=== PATIENT | male | born 1955 | race Caucasian/White ===

== ENCOUNTER 2019-04-23 14:00 | Outpatient (RCR) | payer OTHER, SELFPAY ==
[2019-02-12 09:57] VITALS: BMI 35.1
[2019-02-12 09:58] VITALS: BMI 35.1
[2019-04-23 13:56] VITALS: BMI 35.1
[2019-04-23 14:00] VITALS: BMI 35.1
== END 2019-05-13 23:59 | disposition home or self-care (01) ==
LOC: ANHDMC 14:00
PROVIDERS: PCP Family Medicine Adolescent Medicine; Visit Provider Surgery
DX: E11.9 Type 2 diabetes mellitus without complications (principal); Z71.3 Dietary counseling and surveillance
CPT/HCPCS: 97802; 97803

== ENCOUNTER 2019-06-18 09:43 | Outpatient (RCR) | payer OTHER, SELFPAY ==
[2019-06-18 09:46] VITALS: BMI 33.8
== END 2019-09-16 23:59 | disposition home or self-care (01) ==
LOC: ANHDMC 09:43
PROVIDERS: PCP Family Medicine Adolescent Medicine; Visit Provider Physician Assistant
DX: E11.9 Type 2 diabetes mellitus without complications (principal); Z71.3 Dietary counseling and surveillance
CPT/HCPCS: 97802

== ENCOUNTER 2020-01-07 11:27 | Observation (INO) | payer OTHER, SELFPAY ==
[2020-01-07] VITALS (9 sets, daily range): BP systolic 124–164; BP diastolic 76–99; PULSE 5–64; RESP 6–18; TEMP 36.1–36.6; O2SAT 95–100; BMI 32.8
--- NOTE | ~2020-01-07 | XR_ITS ---
EXAMINATION: XR chest 2V DATE: 01/07/2020 12:01 INDICATION: Chest pain and left arm pain TECHNIQUE: frontal and lateral views of the chest were obtained. COMPARISON: Chest radiograph dated 03/10/2014 FINDINGS: Mild elevation of the left hemidiaphragm. No focal airspace opacities, pulmonary edema, pleural effus ion or pneumothorax. The cardiomediastinal silhouette is normal. Mild thoracic spondylosis. IMPRESSION: 1. No acute cardiopulmonary disease. Reviewed, dictated and finalized at location B.
--- NOTE | ~2020-01-07 | NM_ITS ---
EXAMINATION: NM hira stress w perfusion DATE: 01/08/2020 13:19 INDICATION: Chest discomfort. TECHNIQUE: Rest images were obtained following intravenous administration of 9 mCi Tc99m tetrofosmin (Myoview). The patient was infused intravenously with Lexiscan (regadenoson). Then, 29 mCi Tc99m tetr ofosmin (Myoview) was administered intravenously, and stress images were obtained. Data was reconstru cted into short axis and horizontal and vertical long axis SPECT images. Gated SPECT images were also obtained. COMPARISON: None. FINDINGS: There is no definite reversible or fixed perfusion abnormality to suggest ischemia or infar ction. There is no segmental wall motion abnormality. Left ventricular ejection fraction measures 6 8%. IMPRESSION: 1. No definite ischemia or infarct. 2. Normal left ventricular ejection fraction measuring 68%. Reviewed, dictated and finalized at location A.
--- NOTE | ~2020-01-07 | CT_ITS ---
EXAMINATION: CTA brain carotid EXAM DATE: 01/07/2020 16:57 INDICATION: Left arm pain and chest pain. TECHNIQUE: Noncontrast head CT. Spiral CTA of the carotid arteries was performed with intravenous i njection 100 cc of Omnipaque 350. Axial, coronal, sagittal reformatted images reviewed. Additional r eformatted images created on dedicated 3-D workstation. NASCET comparable standard used to assess th e degree of arterial stenosis. Spiral CT angiogram cerebral arteries performed with the same intrave nous injection of contrast. Source images of the brain CTA transferred to dedicated workstation for 3 -D rotational image creation. Coronal, sagittal maximum intensity pixel images also reviewed. The d ose-length product (DLP) for this examination was 1925.69 mGy-cm. The exposure was tailored accordi ng to patient size, and iterative reconstruction (ASIR) was used as additional dose reduction techniq ue. Study is complete, with images available for review at 17:19 p.m. Correlation is made to head CT 01/10/2011. FINDINGS: No aortic arch or great vessel dissection. There is essentially no carotid plaque. There is no carotid stenosis. Both vertebral arteries are small with the left being dominant and the being bi lateral posterior communicating artery dominant posterior cerebral arteries. There is no carotid or vertebral basilar arterial dissection or fibromuscular dysplasia. There are no cerebral artery aneury sms. There is symmetric cerebral artery arborization. The sagittal, transverse and sigmoid sinuses en wes normally, no venous sinus thrombosis. Internal cerebral veins also enhance normally. There is no acute intraparenchymal hemorrhage. No evidence of intraparenchymal brain mass lesion. N o evidence of acute infarction. There is mild microangiopathy. There is no mass effect or midline sh ift. There is no obstructive hydrocephalus suspected. There are no extra-axial collections. There a re no calvarial acute fractures. There are no areas of abnormal enhancement on the postcontrast imag es. IMPRESSION: 1. No cervical arterial dissection or cerebral artery aneurysm. 2. No carotid stenosis. 3. Mild microangiopathy. Reviewed, dictated and finalized at location A.
--- NOTE | ~2020-01-07 | MR_ITS ---
EXAMINATION: MR brain/brain stem wo/w con DATE: 01/08/2020 11:14 INDICATION: Left hemiparesis. TECHNIQUE: Magnetic resonance imaging (MRI) of the brain and brainstem was performed without and with 20 mL MultiHance intravenous contrast. Sequences included sagittal and axial T1-weighted FSE, axial diffusion-weighted FS EPI, axial T2*-weighted GRE, axial T2-weighted FLAIR Propeller, and axial T2-we ighted Propeller. Postcontrast sequences included axial and coronal T1-weighted FSE. Apparent diffusi on coefficient (ADC) maps were created. COMPARISON: Head CT 01/07/2020 FINDINGS: There are scattered areas of nonspecific increased T2-weighted signal intensity in the cere bral white matter. There is no intracranial hemorrhage, acute infarction, or abnormal intracranial ma ss lesion. The ventricles are normal in size. The orbits are normal. The paranasal sinuses are clear. The mastoid air cells are normal. IMPRESSION: 1. Mild nonspecific cerebral white matter disease, which likely represents chronic small vessel ische kaitlynn disease. Reviewed, dictated and finalized at location A. IMPRESSION: 1. Mild nonspecific cerebral white matter disease, which likely represents water project engineer luis small vessel ischemic disease.
--- NOTE | 2020-01-07 11:45 | ECG_ITS ---
Measurements Intervals Freedom Rate: 60 P: 36 MT: 209 QRS: -15 QRSD: 107 T: 38 QT: 417 QTc: 419 Interpretive Statements SINUS RHYTHM WITH FIRST DEGREE AV BLOCK BASELINE WANDER- II, III, AVL, AVF, V4 ABNORMAL ECG Electronically Signed On 01-07-2020 11:47:51 CDT by Brian Gonzalez D.O.
[2020-01-07 12:52] LABS: Basophils Absolute Auto 0.1 K/mm3 (0.0-0.1); Eosinophils Absolute Auto 0.2 K/mm3 (0-0.3); Eosinophils Percent Auto 2.3 % (0-4.4); Hematocrit 41.8 % (42.0-52.0); Hemoglobin 14.6 g/dL (14.0-18.0); Immature Granulocyte Absolute 0.03 K/mm3 (0.00-0.031); Immature Granulocyte Percent A 0.4 % (0-0.5); Lymphocytes Absolute Auto 2.17 K/mm3 (0.9-3.2); Lymphocytes Percent Auto 31.5 % (18.3-44.2); Mean Corpuscular HGB Conc 34.9 g/dl (32-36); Mean Corpuscular Hemoglobin 32.2 pg (26-34); Mean Corpuscular Volume 92.1 fl (80-100); Mean Platelet Volume 10.2 fl (7.4-10.4); Monocytes Absolute Auto 0.5 K/mm3 (0.1-0.6); Neutrophils Percent Auto 57.8 % (45.5-73.1); Platelet Count Result 189 k/mm3 (150-375); Red Blood Count 4.54 M/mm3 (4.6-6.20); Red Cell Distribution Width 12.2 % (11.5-14.5); White Blood Count 6.9 K/mm3 (4.5-10.0)
[2020-01-07 13:05] LABS: Partial Thromboplastin Time 26.7 SECONDS (22.3-36.8)
[2020-01-07 13:06] LABS: Anion Gap 9 mmol/L (8-16); Blood Urea Nitrogen 15 mg/dL (9-20); Calcium 9.6 mg/dL (8.4-10.2); Carbon Dioxide 26 mmol/L (22-30); Chloride 104 mmol/L (98-107); Estimated CRCL calculation 88 ml/min; Estimated Glomerular Filt Rate > 60; Glucose 202 mg/dL (75-110); Sodium 139 mmol/L (137-145)
[2020-01-07 13:19] LABS: Troponin I < 0.012 ng/mL (0.000-0.034)
--- NOTE | 2020-01-07 15:26 | ED.CHESTPAIN ---
HPI - Chest Pain General Chief Complaint: Chest Pain Stated Complaint: CP, left arm pain Time Seen by Provider: 01/07/20 15:26 Source: patient and family Mode of arrival: ambulatory Limitations: no limitations History of Present Illness HPI narrative: 64-year-old male History of hypertension and insulin-dependent diabetes Patient reports he was standing at a [facility] service at about 1030 this morning He felt a sudden sharp stabbing pain in his left shoulder area along with weakness of his left arm He left the service and proceeded to drive his motorcycle home although he felt like his structural architect was so weak that he was having trouble shifting the gears At this point the initial pain has diminished to a 3 or a 4 but he still experiencing some weakness in the arm He does not really have any chest pain per se nor shortness of breath nausea diaphoresis MD complaint: chest pain and other Onset: other Pain location: other Pain radiation: left arm Quality: sharp Risk Factors Coronary artery disease risk factors: diabetes and hypertension Related Data Allergies Allergy/AdvReac Type Severity Reaction Status Date / Time oxycodone Allergy Unknown Verified 01/09/11 08:48 OXYCODONE HCL Allergy Unknown Uncoded 04/05/17 18:59 SALT Allergy Unknown Uncoded 10/14/13 18:18 STRESS TEST DYE Allergy Unknown Uncoded 10/14/13 18:18 Review of Systems Review of Systems: All systems reviewed & are unremarkable except as noted in HPI and below Constitutional: Constitutional: Denies chills, Denies fatigue, Denies fever(s), Denies headache(s) and Denies night sweats Eyes: Eyes: Denies change in vision, Denies loss of vision and Denies other visual disturbances ENT: Denies headache(s), Denies hoarseness, Denies epistaxis, Denies nasal congestion and Denies sore throat Cardiovascular: Cardiovascular: Reports chest pain, Denies leg edema, Reports radiating jaw, neck or arm pain, Denies palpitations and Denies dyspnea Respiratory: Respiratory: Denies cough, Denies dyspnea and Denies wheezing Gastrointestinal: Gastrointestinal: Denies abdominal pain, Denies diarrhea, Denies nausea and Denies vomiting Genitourinary: Genitourinary: Denies hematuria, Denies dysuria and Denies urinary frequency Musculoskeletal: Musculoskeletal: Denies abnormal gait, Denies deformity, Denies joint swelling, Denies muscle weakness and Denies numbness Integumentary/Breasts: Skin/Breast: Denies rash, Denies unusual bruising and Denies wounds Neurologic: Denies abnormal gait, Denies headache(s), Reports focal weakness, Denies loss of vision and Denies numbness Psychiatric: Psychiatric: Reports no additional psychiatric complaints Endocrine: Endocrine: Denies fatigue and Denies palpitations Hematologic/Lymphatic: Hematologic/Lymphatic: Denies easy bleeding and Denies easy bruising Allergic/Immunologic: Allergic/Immunologic: Denies wheezing PMFSH Social History Social History Smoking status: Never smoker Alcohol intake: never Gender identity (if verbalized by the patient): Female Spiritual care concerns: No Exam Const: General: healthy appearing, no acute distress and well developed Nutritional Appearance: well nourished Orientation/consciousness: patient oriented x3 (alert) and Other orientation findings (Alert) Limitations: no limitations HENMT: Head: normocephalic and atraumatic Ears: external ears normal General nose exam: No nasal discharge present and no epistaxis Face and sinus: face symmetric Mouth: Yes lip normal, Yes tongue normal and Yes moist mucous membranes Throat: other (No exudate, no erythema) Eyes: Conjunctivae: conjunctivae normal Sclera: sclerae normal EOM: EOMs intact bilaterally Neck: Neck: full ROM, no lymphadenopathy, no meningeal signs and supple Thyroid: thyroid normal Other: Neck movements do not elicit any radicular signs or symptoms Chest: Chest palpation & inspection: no tenderness Resp: Effort & Inspection
[2020-01-07 16:19] LABS: Troponin I < 0.012 ng/mL (0.000-0.034)
[2020-01-07 18:01] LABS: Glucose Point of Care 131 (65-105)
[2020-01-07] MEDS: ASPIRIN 81 MG CHEWABLE TABLET 324 MG PO (18:36)
[2020-01-07 19:36] LABS: Troponin I < 0.012 ng/mL (0.000-0.034)
[2020-01-07 20:17] LABS: Glucose Point of Care 102 (65-105)
--- NOTE | 2020-01-07 21:57 | PM.IMHP ---
H&P: HPI History of Present Illness Date/Time: 01/07/20 21:57 Chief complaint: L sided weakness/chest pain Narrative: Anthony Walton is a 64 year old male Who has a history of diabetes and hypertension but has never had any heart disease in the past. The patient was at a [facility] service holding a flag today. The patient developed this left chest pain that was near his left axillary area. The patient stated that it lasted from that time frame to just recently since he has been admitted in the pain is gone away since then. He has not had this pain before he also developed some left arm weakness and he stated that he could move his left arm but had difficulty holding up in the 90 degree angle. His speech was not slurred or had any other problems moving any other extremities. The patient rode his motorcycle home from this event. The patient denies having any injury or accident that would have caused this discomfort. He does not recall doing anything straining is to cause a muscle strain. The patient states when he does use his left arm feels like a pulling action. He also has some tenderness to that left upper chest. No nausea no vomiting no diarrhea. The patient stated that his pain did radiate all the way down his arm but not his neck and he did not have any shortness of breath or diaphoresis. He did not take anything for this discomfort nor did he have this in the past. He does have diabetes but his blood sugars he stated her typically under 200s. The patient had no dizziness. The cardiac enzymes have been negative x2 so far. The patient stated that he had not eaten since this morning and he is just now eating almost 12 hours later. The head and neck CTA shows no cervical arterial dissection or cerebral artery aneurysm. No carotid stenosis. Micro angiopathy. Chest x-ray no acute cardiopulmonary disease. EKG was read as a sinus rhythm with first-degree AV block with heart rate in the 60s. The patient was given IV fluids in the emergency room as well as Tylenol and an aspirin. The patient was admitted to IMU as an observation. Date of service is 01/07/2020. Review of Systems Review of Systems: All systems reviewed & are unremarkable except as noted in HPI and below Constitutional: Constitutional: Reports as per HPI and Reports no additional constitutional complaints Eyes: Eyes: Reports as per HPI and Reports no additional eye complaints ENT: Reports system reviewed and no additional complaints, except as documented and Reports Normal hearing present Cardiovascular: Cardiovascular: Reports no additional cardiovascular complaints Respiratory: Respiratory: Reports no additional respiratory complaints and Reports no additional respiratory complaints Gastrointestinal: Gastrointestinal: Reports as per HPI and Reports no additional gastrointestinal complaints Musculoskeletal: Musculoskeletal: Reports no additional musculoskeletal complaints Integumentary/Breasts: Skin/Breast: Reports system reviewed and no additional complaints, except as docu and Reports as per HPI Neurologic: Reports system reviewed and no additional complaints, except as documented, Reports as per HPI and Reports Normal hearing present Psychiatric: Psychiatric: Reports no additional psychiatric complaints and Reports as per HPI Endocrine: Endocrine: Reports no additional endocrine complaints Hematologic/Lymphatic: Hematologic/Lymphatic: Reports no additional hematologic/lymphatic complaints Allergic/Immunologic: Allergic/Immunologic: Reports no additional allergic/immunologic complaints [facility] Past Medical History Medical History (Updated 01/07/20 @ 22:10 by Viviana Luo NP) Anxiety BPH (benign prostatic hyperplasia) DM2 (diabetes mellitus, type 2) Hyperlipidemia Hypertension Surgical History Surgical History (Updated 01/07/20 @ 22:10 by Viviana Luo NP) H/O elbow surgery right and left arm H/O inguinal hernia repair left side Histor
[2020-01-08] VITALS (9 sets, daily range): BP systolic 116–151; BP diastolic 54–89; PULSE 59–65; RESP 14–16; TEMP 35.9–36.7; O2SAT 95–100
--- NOTE | 2020-01-08 | ECHO_ITS ---
Patient Info Name: Anthony Walton Age: 64 years : 1955 Gender: Male Ht: 75 in Wt: 262 lbs BSA: 2.54 m2 HR: 58 bpm BP: 116 / 54 mmHg Technical Quality: Good Exam Date: 01/08/2020 8:10 AM Exam Location: [facility] Pulmonary Patient Status: Outpatient Admit Date: 01/07/2020 Staff Ordering Physician: Viviana Luo NP Wire Stitcher: Yordan Jones RDCS, RT Attending Provider: Angelo Coughlin MD Referring Physician: Puja ARAIZA; Exam Type: CA echo dop bubble study w con Study Info Indications R53.1 - Weakness Complete two-dimensional, color flow and Doppler transthoracic echocardiogram is performed with contrast to opacify the left ventricle and to improve the deliniation of the left ventricle endocardial borders. Complete two-dimensional, color flow and Doppler transthoracic echocardiogram is performed with agitated saline. Strain analysis performed. Summary 1. Left ventricular chamber dimension is normal. 2. Definity contrast administered improved wall motion interpretation. 3. Ventricular septum is sigmoid shaped. No LVOT obstruction. 4. Left ventricular systolic function is normal, estimated at 65-70%. 5. There is mildly increased left ventricular wall thickness. 6. The left ventricular diastolic function is grade I diastolic dysfunction. 7. E/e' 6 is not elevated. 8. Global longitudinal strain is mildly abnormal at -16.4%. 9. Agitated saline injection with and without valsalva maneuver demonstrated a few bubbles shunting to left sided cardiac chambers suggesting patent foramen ovale. 10. There is mild aortic valve sclerosis. Left Ventricle Definity contrast administered improved wall motion interpretation. E/e' 6 is not elevated. Global longitudinal strain is mildly abnormal at -16.4%. Ventricular septum is sigmoid shaped. No LVOT obstruction. Left ventricular chamber dimension is normal. Left ventricular systolic function is normal, estimated at 65-70%. There is mildly increased left ventricular wall thickness. The left ventricular diastolic function is grade I diastolic dysfunction. Right Ventricle Right ventricular chamber dimension is normal. Right ventricular systolic function is normal. Left Atria Left atrial chamber dimension is normal. Right Atria Right atrial chamber dimension is normal. Atrial Septum Agitated saline injection with and without valsalva maneuver demonstrated a few bubbles shunting to left sided cardiac chambers suggesting patent foramen ovale. Suspected patent foramen ovale visualized by agitated saline imaging. Aortic Valve The aortic valve is trileaflet. There is mild aortic valve sclerosis. There is no aortic valve stenosis. There is no aortic valve regurgitation. Pulmonic Valve There is no pulmonic regurgitation. Mitral Valve There is no mitral valve stenosis. There is no mitral valve regurgitation. Tricuspid Valve There is no tricuspid valve regurgitation. Pericardium/Pleural There is no pericardial effusion. Inferior Vena Cava Normal inferior vena cava with >50% collapse upon inspiration consistent with normal right atrial pressure, 5 mmHg. Aorta The aortic root size at the sinus of Valsalva is normal. Left Ventricular Outflow Tract Name Value Normal LVOT 2D
[2020-01-08] MEDS: LACTATED RINGERS 1,000 ML 100 ML IV CONT ×2 (00:05→09:59)
--- NOTE | 2020-01-08 01:24 | PC.NURSE ---
During admission, pt states that he has thoughts of wishing he weren't alive or not waking up whenever I have to deal with my ex-. Pt states he has no organized plan or ideas to carry out ending his life.
[2020-01-08 05:20] LABS: Basophils Absolute Auto 0.1 K/mm3 (0.0-0.1); Basophils Percent Auto 0.8 % (0.2-1.2); Eosinophils Absolute Auto 0.2 K/mm3 (0-0.3); Hematocrit 39.6 % (42.0-52.0); Hemoglobin 13.6 g/dL (14.0-18.0); Immature Granulocyte Absolute 0.02 K/mm3 (0.00-0.031); Immature Granulocyte Percent A 0.3 % (0-0.5); Lymphocytes Absolute Auto 1.88 K/mm3 (0.9-3.2); Lymphocytes Percent Auto 28.5 % (18.3-44.2); Mean Corpuscular HGB Conc 34.3 g/dl (32-36); Mean Corpuscular Hemoglobin 31.6 pg (26-34); Mean Corpuscular Volume 91.9 fl (80-100); Mean Platelet Volume 10.6 fl (7.4-10.4); Monocytes Absolute Auto 0.5 K/mm3 (0.1-0.6); Monocytes Percent Auto 7.6 % (2.6-8.5); Neutrophils Percent Auto 59.8 % (45.5-73.1); Platelet Count Result 194 k/mm3 (150-375); Red Blood Count 4.31 M/mm3 (4.6-6.20); Red Cell Distribution Width 12.3 % (11.5-14.5); White Blood Count 6.6 K/mm3 (4.5-10.0)
[2020-01-08 05:29] LABS: Hemoglobin A1C 8.1 % (<5.7)
[2020-01-08 05:36] LABS: Alanine Aminotransferase 43 U/L (4-50); Alkaline Phosphatase 71 U/L (38-126); Anion Gap 8 mmol/L (8-16); Aspartate Amino Transferase 45 U/L (17-59); Bilirubin,Total 0.5 mg/dL (0.2-1.3); Blood Urea Nitrogen 18 mg/dL (9-20); Calcium 9.2 mg/dL (8.4-10.2); Carbon Dioxide 25 mmol/L (22-30); Chloride 105 mmol/L (98-107); Estimated CRCL calculation 92 ml/min; Estimated Glomerular Filt Rate > 60; Glucose 248 mg/dL (75-110); Potassium 4.3 mmol/L (3.4-5.0); Sodium 138 mmol/L (137-145)
[2020-01-08 07:35] LABS: Free T4 Free Thyroxine Reflex 0.77 ng/dL (0.78-2.19)
--- NOTE | 2020-01-08 08:00 | EST_ITS ---
Patient Info Name: Anthony Walton Age: 64 years : 1955 Gender: Male Ht: 75 in Wt: 259 lbs BSA: 2.52 m2 Exam Date: 01/08/2020 12:06 PM Exam Location: [facility] Stress Patient Status: Inpatient Admit Date: 01/07/2020 Staff Ordering Physician: Gloria Medina MD Attending Provider: Angelo Coughlin MD Exercise Technologist: Beena Parada RDCS Exercise Physician: Brian Gonzalez DO Exam Type: CA stress hira w NM Study Info Indications R07.9 - Chest pain, unspecified A regadenoson stress test was performed. Summary 1. 1. Negative lexiscan stress test for ischemic ST changes by ECG criteria. 2. 2. Stable hemodynamics throughout the test. 3. 3. Nuclear scan to follow and will be reported separately. Please correlate with it. 4. 4. Patient informed of the above results. Protocol: Lexiscan Stress ECG Details Stage: REST Duration (min): 6 min : 59 sec HR (bpm): 58 SBP (mmHg): 142 DBP (mmHg): 71 Stage: REST Duration (min): 9 min : 48 sec HR (bpm): 61 SBP (mmHg): 142 DBP (mmHg): 71 Stage: STAGE 1 Duration (min): 1 min : 0 sec HR (bpm): 68 SBP (mmHg): 123 DBP (mmHg): 76 Stage: RECOVERY Duration (min): 1 min : 0 sec HR (bpm): 92 SBP (mmHg): 108 DBP (mmHg): 69 Stage: RECOVERY Duration (min): 2 min : 0 sec HR (bpm): 86 SBP (mmHg): 108 DBP (mmHg): 69 Stage: RECOVERY Duration (min): 3 min : 0 sec HR (bpm): 78 SBP (mmHg): 120 DBP (mmHg): 70 Stage: RECOVERY Duration (min): 4 min : 0 sec HR (bpm): 80 SBP (mmHg): 120 DBP (mmHg): 70 Stage: RECOVERY Duration (min): 5 min : 0 sec HR (bpm): 82 SBP (mmHg): 132 DBP (mmHg): 75 Stage: RECOVERY Duration (min): 6 min : 0 sec HR (bpm): 78 SBP (mmHg): 132 DBP (mmHg): 75 Stage: RECOVERY Duration (min): 6 min : 56 sec HR (bpm): 79 SBP (mmHg): 137 DBP (mmHg): 77 Rest HR: 61 bpm Peak HR: 96 bpm Rest Sys BP: 142 mmHg Peak Sys BP: 137 mmHg Max Pred HR: 157 bpm % Max Pred HR: 61 % Target HR: 133 bpm Max RPP: 13,152 bpm*mmHg Termination Reason: Completed protocol Cardiac Symptoms: Dizziness Total Time: 1 min : 0 sec Rest Soliman BP: 71 mmHg Peak Soliman BP: 77 mmHg Total Dose: 0.4 mg Resting ECG Sinus rhythm, IVCD. Stress ECG No ST changes. Arrhythmias None. Report Signatures
--- NOTE | 2020-01-08 08:01 | PM.IMPN ---
Subjective Date/time seen: 01/08/20 08:01 Objective Data Vital Signs Vital Signs: Vital Signs - 24 hr 01/07/20 12:39 01/07/20 14:54 01/07/20 16:30 Temperature 96.9 F L Pulse Rate 62 61 58 L Respiratory Rate 15 18 16 Blood Pressure 124/89 139/80 145/99 H Pulse Oximetry 99 97 98 01/07/20 18:00 01/07/20 19:00 01/07/20 19:50 Temperature Pulse Rate 60 58 L 62 Respiratory Rate 16 16 16 Blood Pressure 156/84 H 164/98 H 143/93 H Pulse Oximetry 98 97 100 01/07/20 20:07 01/07/20 22:00 01/07/20 23:37 Temperature 98 F Pulse Rate 60 64 5 L Respiratory Rate 6 L Blood Pressure 132/76 Pulse Oximetry 95 01/08/20 00:00 01/08/20 02:00 01/08/20 04:00 Temperature 98.1 F Pulse Rate 59 L 59 L 64 Respiratory Rate 14 Blood Pressure 116/54 L Pulse Oximetry 95 01/08/20 06:00 Temperature Pulse Rate 62 Respiratory Rate Blood Pressure Pulse Oximetry Intake/Output Intake/Output: Intake & Output 01/05/20 01/06/20 01/07/20 01/08/20 23:59 23:59 23:59 23:59 Intake Total 800 Output Total 1050 Balance -250 Meds/Results Medications: Active Medications Generic Name Dose Route Start Last Admin Trade Name Freq PRN Reason Stop Dose Admin Acetaminophen 650 mg 01/07/20 18:37 Acetaminophen 325 Mg Tablet PO Q4H PRN Mild Pain (1-3) or Fever Amlodipine Besylate 5 mg 01/07/20 22:05 01/08/20 00:11 Amlodipine Besylate 5 Mg Tablet PO Not Given HS LISA Aspirin 81 mg 01/08/20 09:00 Aspirin 81 Mg Enteric Tablet PO QAM LISA Dextrose 12.5 gm 01/07/20 22:07 Dextrose 50% 25 Gm/50 Ml Syringe IV PUSH PRN PRN Hypoglycemia Protocol Diazepam 5 mg 01/07/20 22:05 01/08/20 00:11 Diazepam (*Crx) 5 Mg Tablet PO Not Given HS LISA Enoxaparin Sodium 40 mg 01/08/20 09:00 Enoxaparin 40 Mg/0.4 Ml Syringe SUB-Q DAILY [facility] Glimepiride 1 mg 01/08/20 21:00 Glimepiride 1 Mg Tablet BY MOUTH HS [facility] Glucagon 1 mg 01/07/20 22:07 Glucagon For Inj 1 Mg Vial IM PRN PRN Hypoglycemia Protocol Glucose 15 gm 01/07/20 22:07 Glucose Oral Gel 15 Gm Of Glucse In 37.5 Gm Tube PO PRN PRN Hypoglycemia Protocol Lactated Ringer's 1,000 mls @ 100 mls/hr 01/07/20 18:40 01/08/20 00:05 Lr - Lactated Ringers Iv IV CONT 100 mls/hr .Q10H LISA Administration Dextrose 1,000 mls @ 100 mls/hr 01/07/20 22:07 Dextrose 5% 1,000 Ml IVPB PRN PRN Hypoglycemia Protocol Insulin Aspart 2 - 5 units 01/08/20 08:00 Insulin Aspart (*Bkc) 100 Units/Ml SUB-Q TIDWM [facility] Protocol Insulin Glargine 20 units 01/08/20 09:00 Insulin Glargine (*Bkc) 100 Units/Ml SUB-Q DAILY [facility] Piroxicam 20 mg 01/07/20 22:05 01/08/20 00:11 Piroxicam 10 Mg Capsule PO 02/07/20 22:06 Not Given HS [facility] Simvastatin 40 mg 01/07/20 22:05 01/08/20 00:11 Simvastatin 20 Mg Tablet PO Not Given HS [facility] Radiology Results: ITS Impressions Chest X-Ray 01/07/20 12:03 IMPRESSION: 1. No acute cardiopulmonary disease. Head/Neck CTA 01/07/20 17:00 IMPRESSION: 1. No cervical arterial dissection or cerebral artery aneurysm. 2. No carotid stenosis. 3. Mild microangiopathy. Labs Labs: Laboratory Results - last 24 hr 01/07/20 01/07/20 01/07/20 12:45 12:45 12:45 WBC 6.9 RBC 4.54 L Hgb 14.6 Hct 41.8 L MCV 92.1 MCH 32.2 MCHC 34.9 RDW 12.2 Plt Count 189 MPV 10.2 Immature Gran % (Auto) 0.4 Neut % (Auto) 57.8 Lymph % (Auto) 31.5 [place] % (Auto) 7.0 Eos % (Auto) 2.3 Baso % (Auto) 1.0 Lymph # (Auto) 2.17 [place] # (Auto) 0.5 Eos # (Auto) 0.2 Baso # (Auto) 0.1 Abs Immat Gran (auto) 0.03 Absolute Neuts (auto) 4.0 Absolute Nucleated RBC 0.0 Nucleated RBC % 0.0 PT 13.0 INR 1.0 APTT 26.7 Sodium 139 Potassium 5.0 Chloride 104 Carbon Dioxide 26 Anion
[2020-01-08 08:16] LABS: Glucose Point of Care 195 (65-105)
[2020-01-08] MEDS: PERFLUTREN LIPID MICROSPHERES 1.5 ML VIAL DILUTED TO 10 ML TOTAL VOLUME IV PUSH (08:55)
[2020-01-08] MEDS: ASPIRIN 81 MG ENTERIC TABLET PO (09:05)
[2020-01-08 09:36] LABS: Glucose Point of Care 200 (65-105)
--- NOTE | 2020-01-08 10:31 | PC.NURSE ---
Pt to MRI and [facility]
--- NOTE | 2020-01-08 13:35 | PC.NURSE ---
Pt returned from [facility]
[2020-01-08 13:50] LABS: Glucose Point of Care 189 (65-105)
--- NOTE | 2020-01-08 14:45 | PM.DS ---
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 He presented to ED and decision was to bring him him for a stroke work up. CT head initial was non significant for acute stroke. CTA head and Neck was unremarkable for atherosclerotic disease. MRI of the brain was negative for any stroke or acute process. Patient had complete resolution of his symptoms. It was felt that due to some risk factors it was warranted a cardiac work up as well a Lexiscan was obtained and was negative for ischemic disease. Patient was discharged home in stable medical condition. DS: Discharge Diagnosis Discharge Diagnosis (1) DM2 (diabetes mellitus, type 2): Code(s): E11.9 - Type 2 diabetes mellitus without complications Status: Chronic Assessment and Plan: Well controlled Carb consistent diet Follow up in the outpatient setting Quarterly A1C (2) Hypertension: Code(s): I10 - Essential (primary) hypertension Status: Chronic Assessment and Plan: Well controlled. Continue home meds. (3) BPH (benign prostatic hyperplasia): Code(s): N40.0 - Benign prostatic hyperplasia without lower urinary tract symptoms Status: Chronic Assessment and Plan: Continue home meds. (4) Anxiety: Code(s): F41.9 - Anxiety disorder, unspecified Status: Chronic Assessment and Plan: Continue home meds Follow up in the outpatient setting. (5) Acute left-sided weakness: Code(s): R53.1 - Weakness Status: Acute Assessment and Plan: Resolved Ruled out acute stroke (6) Chest pain: Code(s): R07.9 - Chest pain, unspecified Status: Acute Assessment and Plan: Resolved Ruled out ischemia. DS: Summary Time Spent with Patient Time attestation: Total time spent providing and/or coordinating discharge services: Exam Narrative: Exam Narrative: Sitting in bed. Const: General: cooperative, healthy appearing, comfortable and awake Nutritional Appearance: average body habitus and well nourished Orientation/consciousness: patient oriented x3 Limitations: no limitations HENMT: Head: normal to inspection Ears: hearing grossly normal bilaterally General nose exam: Normal external nose present Face and sinus: normal facial exam Mouth: Yes Normal oral and palatal mucosa present Eyes: General: appearance normal, both eyes and all related structures Alignment and Position: alignment normal Eyelids: eyelids normal Pupils: Equal, round and reactive pupils present EOM: EOMs intact bilaterally Neck: Neck: full ROM, no lymphadenopathy and no JVD Thyroid: thyroid normal Lymphatic: no lymphadenopathy noted Resp: Effort & Inspection: normal respiratory effort Auscultation: clear to auscultation bilaterally Cardio: Jugular venous distension: no JVD Rate: regular rate Rhythm: regular rhythm Heart sounds: S1 normal heart sound present and S2 normal heart sound present Peripheral pulses: Peripheral pulses 2+ throughout GI: Inspection: normal to inspection GI Palp: Yes Firmness to palpation present (GI) and Yes No hepatosplenomegaly present Auscultation: normal bowel sounds Skin: General skin exam: normal color Lesions: no lesions Rashes: no rashes Wounds: no wounds Hair: normal Neuro: General: patient oriented x3 and CN's II-XI intact bilaterally Cranial nerves: Yes CN's II-XII intact bilaterally and Yes Equal, round and reactive pupils present Extrem: General: normal to inspection, full ROM and no joint enlargement DS: Data Data Completed and Pending Labs on day of discharge: Labs from last 24 hours 01/08/20 01/08/20 01/08/20 13:43 09:31 07:40 WBC RBC Hgb Hct MCV MCH MCHC RDW Plt Count MP
--- NOTE | 2020-01-08 16:03 | WPDNEURCNPN ---
Assessment and Plan Assessment and plan (1) Hyperlipidemia: Code(s): E78.5 - Hyperlipidemia, unspecified Status: Chronic (2) DM2 (diabetes mellitus, type 2): Code(s): E11.9 - Type 2 diabetes mellitus without complications Status: Chronic (3) Hypertension: Code(s): I10 - Essential (primary) hypertension Status: Chronic (4) BPH (benign prostatic hyperplasia): Code(s): N40.0 - Benign prostatic hyperplasia without lower urinary tract symptoms Status: Chronic (5) Acute left-sided weakness: Code(s): R53.1 - Weakness Status: Acute (6) Chest pain: Code(s): R07.9 - Chest pain, unspecified Status: Acute Additional Plan I have discussed with the patient at length 1st off he is left-handed and his left arm was numb it was consult quite concerning but it came in a background of having had chest pain he does have evidence of a PFO which have been probably present all his life with a history of having had a murmur for quite some time I have recommended the patient follow up with the coat feller as soon as possible continue the aspirin and the statin therapy I have also suggested the nurse attending to be in touch with the hospitalist so that the arrangements can be made for him to follow up with the Cardiology and primary care physician Consult date: 01/08/20 Time Seen: 13:00 HPI: Anthony Walton is a 64 year old male He is symptom free from any neurological symptoms whatsoever. Patient was admitted because of the chest pain on the left side and numbness of the left arm which resolved completely and the time of this examination he is planning to be going home he denies any headache nausea vomiting chest pain shortness of breath fever chills sore throat the workup does not reveal any evidence of stroke however he does have a PFO which needs to be followed by the coat feller who in fact has read his echocardiogram and also the Lexiscan I told the nurse and also the patient the patient is to follow up with the Cardiology for the PFO in the meantime he may continue the aspirin and the statin Review of Systems Review of Systems: All systems reviewed & are unremarkable except as noted in HPI and below PMFSH Past Medical History Medical History Anxiety BPH (benign prostatic hyperplasia) DM2 (diabetes mellitus, type 2) Hyperlipidemia Hypertension Surgical History Surgical History H/O elbow surgery right and left arm H/O inguinal hernia repair left side History of facial surgery injury to face with multiple sutures S/P tonsillectomy and adenoidectomy Family History Family History Unknown Unknown family medical history patient was adopted Social History Social History Social History: the patient lives with a significant other. The patient has 3 daughters. He is . He works for [employer]. He does not drink any alcohol but occasionally has some whiskey. He quit smoking in 1985. He desires to be a full code and does not have a durable power regulatory attorney for healthcare. He does use marijuana or illicit drugs Smoking packs per day: 1 Smoking cigarettes per day: 20.0 Years smoked: 13 Smoking pack-years: 13.00 Smoking status: Former smoker Tobacco type: cigarettes Alcohol intake: former Substance use: never Living arrangements: with family Occupation/Education: occupation Gender identity (if verbalized by the patient): Female Spiritual care concerns: No Meds Home Medications and Allergies Home Medications Medication Instructions Recorded Confirmed Type Miguel Carney U-100 Insulin 20 unit SUBCUT DAILY 01/07/20 01/07/20 History amlodipine 5 mg PO HS 01/07/20 01/07/20 History diazepam 5 mg HS 01/07/20 01/07/20 History gli
== END 2020-01-08 15:29 | disposition home or self-care (01) ==
LOC: ANHED 18:45 → ANHIMU 01-08 01:23
PROVIDERS: Emergency Medicine; Nurse Practitioner; Admitting Provider Internal Medicine; Emergency Provider Emergency Medicine; PCP Family Medicine Adolescent Medicine; Visit Provider Internal Medicine
DX: R07.9 Chest pain, unspecified (principal); I10 Essential (primary) hypertension; E11.9 Type 2 diabetes mellitus without complications; Z79.4 Long term (current) use of insulin; R53.1 Weakness; N40.0 Benign prostatic hyperplasia without lower urinary tract symptoms; E78.5 Hyperlipidemia, unspecified; F41.9 Anxiety disorder, unspecified; Z87.891 Personal history of nicotine dependence
CPT/HCPCS: 36415; 70496; 70498; 70553; 71046; 78452; 80048; 80053; 82728; 83036; 83735; 84439; 84443; 84484; 85025; 85610; 85730; 93005; 93017; 96361; 96374; 96375; 99285; A9270; A9502; A9577; C8929; G0378; J2785; J7120; Q9957; Q9967

== ENCOUNTER 2020-02-29 01:34 | Outpatient (CLI) | payer OTHER, SELFPAY ==
[2020-02-29 18:52] LABS: SARS-CoV-2 RNA PCR Negative
== END 2020-02-29 01:35 | disposition home or self-care (01) ==
LOC: ANHCOVIDDT 01:34
PROVIDERS: PCP Family Medicine Adolescent Medicine; Visit Provider Internal Medicine Gastroenterology
DX: Z01.818 Encounter for other preprocedural examination (principal); Z20.828 Contact with and (suspected) exposure to other viral communicable diseases
CPT/HCPCS: 87635; C9803; U0003

== ENCOUNTER 2020-03-03 01:08 | Day surgery (SDC) | payer OTHER, SELFPAY ==
[2020-02-24 13:09] VITALS: BMI 32.5
--- NOTE | 2020-03-02 12:09 | WPDANESEPPF ---
Anes - Initial Pre Proc Eval Procedure: Operation Date: 03/03/20 07:30 Proposed Procedures p Colonoscopy - Tiburcio Paez MD Date/Time: 03/02/20 12:09 Surgeon: Tiburcio Paez MD Pre Op Diagnosis: Change in bowel Habits Patient Data Age: 64 Gender: M Height: 1.91 m Weight: 118 kg Allergies Allergy/AdvReac Type Severity Reaction Status Date / Time adenosine Allergy Severe Anaphylactic Verified 03/03/20 06:27 Shock oxycodone [From OxyContin] Allergy Severe Hallucinati Verified 03/03/20 06:27 ng Home Medications Medication Instructions Recorded Confirmed Type Basaglar KwikPen U-100 Insulin 20 unit SUBCUT DAILY 01/07/20 03/03/20 History amlodipine 5 mg PO HS 01/07/20 03/03/20 History diazepam 5 mg PO HS 01/07/20 03/03/20 History glimepiride 1 mg PO HS 01/07/20 03/03/20 History piroxicam 20 mg PO HS 01/07/20 03/03/20 History potassium chloride [Klor-Con M20] 20 meq PO HS 01/07/20 03/03/20 History simvastatin 40 mg PO HS 01/07/20 03/03/20 History tamsulosin 0.4 mg PO HS 01/07/20 03/03/20 History ascorbic acid (vitamin C) 1 g PO HS 02/24/20 03/03/20 History aspirin 81 mg PO HS 02/24/20 03/03/20 History coenzyme Q10 [Co Q-10] 300 mg PO HS 02/24/20 03/03/20 History cyanocobalamin (vitamin B-12) 1,000 mcg PO HS 02/24/20 03/03/20 History [Vitamin B-12] magnesium 500 mg PO HS 02/24/20 03/03/20 History multivitamin [Daily Multivitamin] 1 tablet PO DAILY 02/24/20 03/03/20 History pyridoxine (vitamin B6) [Vitamin 100 mg PO HS 02/24/20 03/03/20 History B-6] ranitidine HCl 300 mg PO HS 02/24/20 03/03/20 History vitamin B complex [Super B Complex] 2 cap PO DAILY 02/24/20 03/03/20 History Patient hx anesthesia problems: none Family hx anesthesia problems: none [facility] Past Medical History Medical History (Updated 03/02/20 @ 12:10 by Ronnie Silva MD) Anxiety BPH (benign prostatic hyperplasia) DM2 (diabetes mellitus, type 2) Hyperlipidemia Hypertension Obesity PFO (patent foramen ovale) TIA (transient ischemic attack) Surgical History Surgical History H/O elbow surgery right and left arm H/O inguinal hernia repair left side History of facial surgery injury to face with multiple sutures S/P tonsillectomy and adenoidectomy Family History Family History Unknown Unknown family medical history patient was adopted Social History Social History Social History: the patient lives with a significant other. The patient has 3 daughters. He is . He works for [employer]. He does not drink any alcohol but occasionally has some whiskey. He quit smoking in 1985. He desires to be a full code and does not have a durable power state's attorney for healthcare. He does use marijuana or illicit drugs Smoking packs per day: 1.5 Smoking cigarettes per day: 30.0 Years smoked: 13 Smoking pack-years: 19.50 Smoking status: Former smoker Tobacco type: cigarettes Alcohol intake: current Substance use: never Living arrangements: with roommate(s) Gender identity (if verbalized by the patient): Female Spiritual care concerns: No Anes - Eval Final PreProcedure Day of Procedure 03/02/20 12:09 Patient weight: obese Heart: regular rate and rhythm Lungs: clear to auscultation and normal air movement Airway: Mallampati scale class II Neurological: alert and oriented Last oral intake: >/= 8 hours ASA classification: III Emergent: no Anesthetic plan: proceed Anesthesia type and monitoring: general GIVS Informed Consent: The patient's anesthetic plan and its attendant risks and benefits were discussed with the patient/family/POA. Questions were solicited and answers provided to the satisfaction of the patient/family/POA.
[2020-03-03 06:30] VITALS: BP 133/86; PULSE 62; RESP 16; TEMP 36.3; O2SAT 97; BMI 32.3
[2020-03-03] MEDS: LACTATED RINGERS 1,000 ML 150 ML IV CONT (06:41)
[2020-03-03 06:49] LABS: Glucose Point of Care 172 (65-105)
--- NOTE | 2020-03-03 08:11 | WPDGICN ---
Assessment and Plan Assessment and plan (1) Encounter for diagnostic colonoscopy due to change in bowel habits: Code(s): R19.4 - Change in bowel habit Status: Acute Assessment and Plan: Patient has had a change in bowel habits with narrowed stools. Poor response to antispasmodic agent. Plan is for fiber supplements. A colonoscopy will be performed to evaluate more thoroughly. GI Consult Note Consult date/time: 03/03/20 08:11 HPI: Anthony Walton is a 64 year old male Presents for evaluation of change in bowel habits. Patient followed by Dr. Kingsley. Over last 4 months patient is noted rather vague abdominal pain. He has had no help with trial of dicyclomine. He now will strain in his stools. He reports very narrow is a stools. This has been persistent. He denies any bleeding. He has had no weight change. Last colonoscopy was in 2014. Family history is noncontributory. Patient presents PMF Past Medical History Medical History Anxiety BPH (benign prostatic hyperplasia) DM2 (diabetes mellitus, type 2) Hyperlipidemia Hypertension Obesity PFO (patent foramen ovale) TIA (transient ischemic attack) Surgical History Surgical History H/O elbow surgery right and left arm H/O inguinal hernia repair left side History of facial surgery injury to face with multiple sutures S/P tonsillectomy and adenoidectomy Family History Family History Unknown Unknown family medical history patient was adopted Social History Social History Social History: the patient lives with a significant other. The patient has 3 daughters. He is . He works for [employer]. He does not drink any alcohol but occasionally has some whiskey. He quit smoking in 1985. He desires to be a full code and does not have a durable power mutton puncher for healthcare. He does use marijuana or illicit drugs Smoking packs per day: 1.5 Smoking cigarettes per day: 30.0 Years smoked: 13 Smoking pack-years: 19.50 Smoking status: Former smoker Tobacco type: cigarettes Alcohol intake: current Substance use: never Living arrangements: with roommate(s) Gender identity (if verbalized by the patient): Female Spiritual care concerns: No Meds Home Medications and Allergies Home Medications Medication Instructions Recorded Confirmed Type Miguel Carney U-100 Insulin 20 unit SUBCUT DAILY 01/07/20 03/03/20 History amlodipine 5 mg PO HS 01/07/20 03/03/20 History diazepam 5 mg PO HS 01/07/20 03/03/20 History glimepiride 1 mg PO HS 01/07/20 03/03/20 History piroxicam 20 mg PO HS 01/07/20 03/03/20 History potassium chloride [Klor-Con M20] 20 meq PO HS 01/07/20 03/03/20 History simvastatin 40 mg PO HS 01/07/20 03/03/20 History tamsulosin 0.4 mg PO HS 01/07/20 03/03/20 History ascorbic acid (vitamin C) 1 g PO HS 02/24/20 03/03/20 History aspirin 81 mg PO HS 02/24/20 03/03/20 History coenzyme Q10 [Co Q-10] 300 mg PO HS 02/24/20 03/03/20 History cyanocobalamin (vitamin B-12) 1,000 mcg PO HS 02/24/20 03/03/20 History [Vitamin B-12] magnesium 500 mg PO HS 02/24/20 03/03/20 History multivitamin [Daily Multivitamin] 1 tablet PO DAILY 02/24/20 03/03/20 History pyridoxine (vitamin B6) [Vitamin 100 mg PO HS 02/24/20 03/03/20 History B-6] ranitidine HCl 300 mg PO HS 02/24/20 03/03/20 History vitamin B complex [Super B Complex] 2 cap PO DAILY 02/24/20 03/03/20 History Allergies Allergy/AdvReac Type Severity Reaction Status Date / Time adenosine Allergy Severe Anaphylactic Verified 03/03/20 06:27 Shock oxycodone [From OxyContin] Allergy Severe Hallucinati Verified 03/03/20 06:27 ng Vital Signs Vital Signs - 24 hr 03/03/20 06:30 Temperature 97.4 F L Pulse Rate 62 Respiratory Rate 16 Bloo
[2020-03-03 08:12] VITALS: BP 128/70; PULSE 56; RESP 15; O2SAT 95
[2020-03-03 08:22] VITALS: BP 117/68; PULSE 64; RESP 18; O2SAT 99
[2020-03-03 08:22] LABS: Glucose Point of Care 169 (65-105)
[2020-03-03 08:32] VITALS: BP 119/77; PULSE 57; RESP 13; O2SAT 98
== END 2020-03-03 08:52 | disposition home or self-care (01) ==
PROVIDERS: PCP Family Medicine Adolescent Medicine; Visit Provider Internal Medicine Gastroenterology
PROC: 0DJD8ZZ Inspection of Lower Intestinal Tract, Via Natural or Artificial Opening Endoscopic (ICD-10-PCS; CPT 45378; principal; 2020-03-03 07:30)
DX: R19.4 Change in bowel habit (principal); K64.8 Other hemorrhoids; I10 Essential (primary) hypertension; E78.5 Hyperlipidemia, unspecified; Q21.1 Atrial septal defect; N40.0 Benign prostatic hyperplasia without lower urinary tract symptoms; E11.9 Type 2 diabetes mellitus without complications; F41.9 Anxiety disorder, unspecified; Z86.73 Personal history of transient ischemic attack (TIA), and cerebral infarction without residual deficits; E66.9 Obesity, unspecified; Z68.32 Body mass index [BMI] 32.0-32.9, adult; Z87.891 Personal history of nicotine dependence; Z79.4 Long term (current) use of insulin
CPT/HCPCS: 45378; J2704; J7120

== ENCOUNTER 2020-11-17 07:57 | Emergency (ER) | payer OTHER, SELFPAY ==
[2020-11-17] VITALS (19 sets, daily range): BP systolic 140–153; BP diastolic 74–100; PULSE 50–71; RESP 9–32; TEMP 36.4–36.6; O2SAT 94–98
--- NOTE | ~2020-11-17 | XR_ITS ---
EXAMINATION: XR chest 2V EXAM DATE: 11/17/2020 08:19 INDICATION: Chest pain. High blood pressure. TECHNIQUE: Frontal and lateral projections of the chest obtained and reviewed. Comparison is made to prior examination from 01/07/2020. FINDINGS: The lungs are clear. There are no pleural effusions. The cardiomediastinal silhouette is within normal limits. There is no pneumothorax suspected. The bones and soft tissues are unremarkab le. IMPRESSION: No acute cardiopulmonary findings. Reviewed, dictated and finalized at location A.
--- NOTE | 2020-11-17 07:58 | ECG_ITS ---
Measurements Intervals [place] Rate: 66 P: TN: 0 QRS: -26 QRSD: 117 T: 13 QT: 396 QTc: 416 Interpretive Statements SINUS RHYTHM BORDERLINE AV CONDUCTION DELAY INTRAVENTRICULAR CONDUCTION DELAY BASELINE ARTIFACT- II, III, AVL, AVF, V1, V3-V6 BORDERLINE ECG Electronically Signed On 11-17-2020 8:37:50 CDT by Brian Gonzalez D.O.
[2020-11-17] MEDS: ASPIRIN 81 MG CHEWABLE TABLET 324 MG PO (08:17)
[2020-11-17 08:20] LABS: Basophils Absolute Auto 0.1 K/mm3 (0.0-0.1); Basophils Percent Auto 1.3 % (0.2-1.2); Eosinophils Absolute Auto 0.2 K/mm3 (0-0.3); Eosinophils Percent Auto 3.1 % (0-4.4); Hemoglobin 14.3 g/dL (14.0-18.0); Immature Granulocyte Absolute 0.02 K/mm3 (0.00-0.031); Immature Granulocyte Percent A 0.4 % (0-0.5); Lymphocytes Percent Auto 29.3 % (18.3-44.2); Mean Corpuscular HGB Conc 33.3 g/dl (32-36); Mean Corpuscular Hemoglobin 30.4 pg (26-34); Mean Corpuscular Volume 91.5 fl (80-100); Mean Platelet Volume 9.8 fl (7.4-10.4); Monocytes Absolute Auto 0.5 K/mm3 (0.1-0.6); Monocytes Percent Auto 9.2 % (2.6-8.5); Neutrophils Absolute Auto 3.1 K/mm3 (1.3-6.7); Neutrophils Percent Auto 56.7 % (45.5-73.1); Platelet Count Result 193 k/mm3 (150-375); White Blood Count 5.5 K/mm3 (4.5-10.0)
[2020-11-17 08:30] LABS: INR 0.9; Prothrombin Time 11.9 Seconds (11.1-14.7)
[2020-11-17 08:31] LABS: Partial Thromboplastin Time 25.9 SECONDS (22.3-36.8)
[2020-11-17 08:32] LABS: Anion Gap 7 mmol/L (8-16); Blood Urea Nitrogen 22 mg/dL (9-20); Calcium 9.6 mg/dL (8.4-10.2); Carbon Dioxide 23 mmol/L (22-30); Chloride 110 mmol/L (98-107); Estimated CRCL calculation 83 ml/min; Estimated Glomerular Filt Rate > 60; Glucose 154 mg/dL (65-110); Potassium 4.7 mmol/L (3.4-5.0); Sodium 140 mmol/L (137-145)
[2020-11-17 08:43] LABS: Troponin I < 0.012 ng/mL (0.000-0.034)
--- NOTE | 2020-11-17 09:22 | ED.CHESTPAIN ---
HPI - Chest Pain General Chief Complaint: Chest Pain Stated Complaint: Chest pain Time Seen by Provider: 11/17/20 09:03 Source: patient Mode of arrival: ambulatory Limitations: no limitations History of Present Illness HPI narrative: This is a 65 year old male that presents to the ER for chest pain since this morning. The pain started around 7 AM. Reports the pain is substernal and radiated into the left neck and arm. It has been constant since onset, but somewhat relieved with Aspirin. Associated with shortness of breath and diaphoresis. Denies fever, cough, or lower extremity edema. Related Data Home Medications Medication Instructions Recorded Confirmed Basaglar GradyikPen U-100 Insulin 20 unit SUBCUT DAILY 01/07/20 07/13/20 diazepam 5 mg PO HS 01/07/20 07/13/20 glimepiride 1 mg PO HS 01/07/20 07/13/20 piroxicam 20 mg PO HS 01/07/20 07/13/20 potassium chloride [Klor-Con M20] 20 meq PO HS 01/07/20 07/13/20 simvastatin 40 mg PO HS 01/07/20 07/13/20 tamsulosin 0.4 mg PO HS 01/07/20 07/13/20 ascorbic acid (vitamin C) 1 g PO HS 02/24/20 07/13/20 aspirin 81 mg PO HS 02/24/20 07/13/20 coenzyme Q10 [Co Q-10] 300 mg PO HS 02/24/20 07/13/20 cyanocobalamin (vitamin B-12) 1,000 mcg PO HS 02/24/20 07/13/20 [Vitamin B-12] magnesium 500 mg PO HS 02/24/20 07/13/20 multivitamin [Daily Multivitamin] 1 tablet PO DAILY 02/24/20 07/13/20 pyridoxine (vitamin B6) [Vitamin 100 mg PO HS 02/24/20 07/13/20 B-6] vitamin B complex [Super B Complex] 2 cap PO DAILY 02/24/20 07/13/20 lisinopril 20 mg tablet 20 mg PO DAILY 07/13/20 07/13/20 omeprazole 20 mg capsule,delayed 20 mg PO DAILY 07/13/20 07/13/20 release Allergies Allergy/AdvReac Type Severity Reaction Status Date / Time adenosine Allergy Severe Anaphylactic Verified 11/17/20 08:04 Shock oxycodone [From OxyContin] Allergy Severe Hallucinati Verified 11/17/20 08:04 ng Review of Systems Review of Systems: CONSTITUTIONAL: Denies fever CARDIOVASCULAR: Reports chest pain. Denies edema. RESPIRATORY: Denies cough or current dyspnea. MUSCULOSKELETAL: Reports myalgia. All systems reviewed & are unremarkable except as noted in HPI and below PMFSH Past Medical History Medical History Anxiety BPH (benign prostatic hyperplasia) Diabetes DM2 (diabetes mellitus, type 2) Hemoglobin A1c greater than 8.0 percent last charted A1c 01/08/2020 was 8.1 Hemoglobin A1c less than 7.0% 02/06/19 A1C = 6.[address] Brody office Hyperlipidemia Hypertension Obesity PFO (patent foramen ovale) TIA (transient ischemic attack) Surgical History Surgical History H/O elbow surgery right and left arm H/O inguinal hernia repair left side History of facial surgery injury to face with multiple sutures S/P tonsillectomy and adenoidectomy Family History Family History Unknown Unknown family medical history patient was adopted Social History Social History Social History: the patient lives with a significant other. The patient has 3 daughters. He is . He works for [employer]. He does not drink any alcohol but occasionally has some whiskey. He quit smoking in 1985. He desires to be a full code and does not have a durable power litigation attorney associate for healthcare. He does use marijuana or illicit drugs Smoking packs per day: 1.5 Smoking cigarettes per day: 30.0 Years smoked: 13 Smoking pack-years: 19.50 Smoking status: Former smoker Tobacco type: cigarettes Alcohol intake: current Substance use: never Gender identity (if verbalized by the patient): Male Spiritual care concerns: No Exam Narrative: GENERAL: Well-appearing, well-nourished, and in no acute distress. HEAD: Normocephalic, atraumatic. EYES: PERRLA an
[2020-11-17] MEDS: KETOROLAC 15 MG/ML VIAL (*BKC) IV PUSH (09:51)
[2020-11-17 11:43] LABS: Troponin I < 0.012 ng/mL (0.000-0.034)
== END 2020-11-17 13:15 | disposition home or self-care (01) ==
PROVIDERS: Emergency Provider Emergency Medicine; PCP Family Medicine Adolescent Medicine
DX: R07.9 Chest pain, unspecified (principal); N40.0 Benign prostatic hyperplasia without lower urinary tract symptoms; E11.9 Type 2 diabetes mellitus without complications; E78.5 Hyperlipidemia, unspecified; I10 Essential (primary) hypertension; Z86.73 Personal history of transient ischemic attack (TIA), and cerebral infarction without residual deficits; E66.9 Obesity, unspecified; Z68.32 Body mass index [BMI] 32.0-32.9, adult; Z87.891 Personal history of nicotine dependence; Z79.82 Long term (current) use of aspirin; Z79.4 Long term (current) use of insulin; I45.9 Conduction disorder, unspecified
CPT/HCPCS: 36415; 71046; 80048; 84484; 85025; 85610; 85730; 93005; 96374; 99284; A9270; J1885

== ENCOUNTER 2021-04-05 11:31 | Emergency (ER) | payer OTHER, SELFPAY ==
--- NOTE | ~2021-04-05 | XR_ITS ---
EXAMINATION: XR foot LT min 3V DATE: 04/05/2021 12:01 INDICATION: Left foot pain. Injury. TECHNIQUE: 4 views of left foot were obtained. COMPARISON: None. FINDINGS: Bone alignment is normal. There is a nondisplaced oblique fracture of base of fourth metata rsal. There is mild osteoarthritis of first metatarsophalangeal joint and some of the interphalangeal joints. There is an enthesophyte at plantar aspect of calcaneal tuberosity. IMPRESSION: 1. Nondisplaced oblique fracture of base of fourth metatarsal. Reviewed, dictated and finalized at location B. ON [employer]
[2021-04-05 11:46] VITALS: BP 153/84; PULSE 63; RESP 16; TEMP 36.3; O2SAT 98
--- NOTE | 2021-04-05 12:41 | ED.LOWEXIN ---
HPI - Extremity Injury (Lower) General Chief Complaint: Extremity Injury, Lower Stated Complaint: left foot pain Time Seen by Provider: 04/05/21 12:27 Source: patient and RN notes reviewed Mode of arrival: ambulatory Limitations: no limitations History of Present Illness HPI Narrative: Patient presents today complaining of an injury to his left foot. He was working on a dump truck when he fell and twisted his left foot at 845 this morning. Reports some tingling in the dorsum of his foot. Currently rates his pain 8/10 and has tried no medication or ice prior to arrival. He has been ambulatory with his boot on since the injury. MD complaint: foot injury Related Data Home Medications Medication Instructions Recorded Confirmed Basaglnohelia RasmussenikPen U-100 Insulin 20 unit SUBCUT DAILY 01/07/20 04/05/21 diazepam 5 mg PO HS 01/07/20 04/05/21 glimepiride 1 mg PO HS 01/07/20 04/05/21 piroxicam 20 mg PO HS 01/07/20 04/05/21 potassium chloride [Klor-Con M20] 20 meq PO HS 01/07/20 04/05/21 simvastatin 40 mg PO HS 01/07/20 04/05/21 ascorbic acid (vitamin C) 1 g PO HS 02/24/20 04/05/21 coenzyme Q10 [Co Q-10] 300 mg PO HS 02/24/20 04/05/21 cyanocobalamin (vitamin B-12) 1,000 mcg PO HS 02/24/20 04/05/21 [Vitamin B-12] magnesium 500 mg PO HS 02/24/20 04/05/21 multivitamin [Daily Multivitamin] 1 tablet PO DAILY 02/24/20 04/05/21 pyridoxine (vitamin B6) [Vitamin 100 mg PO HS 02/24/20 04/05/21 B-6] vitamin B complex [Super B Complex] 2 cap PO DAILY 02/24/20 04/05/21 lisinopril 20 mg tablet 20 mg PO DAILY 07/13/20 04/05/21 omeprazole 20 mg capsule,delayed 20 mg PO DAILY 07/13/20 04/05/21 release Allergies Allergy/AdvReac Type Severity Reaction Status Date / Time adenosine Allergy Severe Anaphylactic Verified 04/05/21 12:10 Shock oxycodone [From OxyContin] Allergy Severe Hallucinati Verified 04/05/21 12:10 ng Review of Systems Review of Systems: CONSTITUTIONAL: Denies body aches, fever, chills, or sweats. EYES: Denies visual changes, redness, or discharge. ENT: Denies rhinorrhea, congestion, sore throat, or otalgia. CARDIOVASCULAR: Denies chest pain, palpitations, or edema. RESPIRATORY: Denies cough or dyspnea. GASTROINTESTINAL: Denies abdominal pain, nausea, vomiting, or diarrhea. GENITOURINARY: Denies dysuria or hematuria. SKIN: Denies rash, itching, or wounds. MUSCULOSKELETAL: Denies back pain, or myalgia. + Left foot injury NEUROLOGIC: Denies headache, numbness, or weakness.+ Left foot tingling PSYCH: Denies depression or anxiety. [facility] Past Medical History Medical History Anxiety BPH (benign prostatic hyperplasia) Diabetes DM2 (diabetes mellitus, type 2) Hemoglobin A1c greater than 8.0 percent last charted A1c 01/08/2020 was 8.1 Hemoglobin A1c less than 7.0% 02/06/19 A1C = 6.[address] Brody office Hyperlipidemia Hypertension Obesity PFO (patent foramen ovale) TIA (transient ischemic attack) Surgical History Surgical History H/O elbow surgery right and left arm H/O inguinal hernia repair left side History of facial surgery injury to face with multiple sutures S/P tonsillectomy and adenoidectomy Family History Family History Unknown Unknown family medical history patient was adopted Social History Social History Social History: the patient lives with a significant other. The patient has 3 daughters. He is . He works for [employer]. He does not drink any alcohol but occasionally has some whiskey. He quit smoking in 1985. He desires to be a full code and does not have a durable power trust and estates attorney for healthcare. He does use marijuana or illicit drugs Smoking packs per day: 1.5 Smoking cigarettes per day: 30.0 Years smoked: 13
== END 2021-04-05 13:25 | disposition home or self-care (01) ==
PROVIDERS: Emergency Provider Nurse Practitioner; PCP Family Medicine Adolescent Medicine
DX: S92.345A Nondisplaced fracture of fourth metatarsal bone, left foot, initial encounter for closed fracture (principal); W19.XXXA Unspecified fall, initial encounter; N40.0 Benign prostatic hyperplasia without lower urinary tract symptoms; E11.9 Type 2 diabetes mellitus without complications; E78.5 Hyperlipidemia, unspecified; I10 Essential (primary) hypertension; Z86.73 Personal history of transient ischemic attack (TIA), and cerebral infarction without residual deficits; E66.9 Obesity, unspecified; Z68.30 Body mass index [BMI] 30.0-30.9, adult; Z87.891 Personal history of nicotine dependence; F41.9 Anxiety disorder, unspecified
CPT/HCPCS: 29125; 73630; 99214; G0463

== ENCOUNTER → 2021-08-16 14:06 | Outpatient (CLI) | payer MEDICARE, OTHER, SELFPAY ==
--- NOTE | ~2021-08-16 | XR_ITS ---
XR shoulder LT min 2V 08/16/2021 15:02 Indication: Left shoulder pain Procedure: 4 views left shoulder Comparison: No prior studies for comparison. Findings: No fracture, subluxation or dislocation. No significant joint space narrowing. There is caroline tomic alignment. No soft tissue abnormality. Impression: 1: No significant bone or joint abnormality. Reviewed, dictated and finalized at location A. Impression: 1: No significant bone or joint abnormality.
--- NOTE | ~2021-08-16 | XR_ITS ---
EXAM: XR lumbar spine 2-3V DATE: 08/16/2021 15:02 HISTORY: M54.50 - Low back pain, unspecified . COMPARISON: None available. FINDINGS: 5 nonrib-bearing lumbar-type vertebral bodies. Pedicles intact. Mild lumbar scoliosis. Loco tebral body heights and alignment are normal. Moderate disc space narrowing at L3-4. Moderate narrowi ng and vacuum phenomenon at L5-S1. Multilevel marginal osteophytosis. Lower lumbar facet sclerosis an d interspinous narrowing. IMPRESSION: Multilevel degenerative disc disease, severe at L5-S1. Lower lumbar facet arthropathy. Reviewed, dictated and finalized at location K.
--- NOTE | ~2021-08-16 | XR_ITS ---
EXAM: XR AC joint BI DATE: 08/16/2021 15:02 HISTORY: Pain . COMPARISON: None available. FINDINGS: Normal mineralization. No fracture or dislocation. No lytic or blastic lesion. Joint space s are maintained. No erosion or periosteal change. Soft tissues within normal limits. No change in al ignment with weightbearing. IMPRESSION: Normal AC joint radiograph findings. Reviewed, dictated and finalized at location K.
== END ==
PROVIDERS: PCP Family Medicine Adolescent Medicine; Visit Provider Physician Assistant
DX: M54.50 Low back pain, unspecified (principal); M25.512 Pain in left shoulder; G89.29 Other chronic pain
CPT/HCPCS: 72100; 73030; 73050

== ENCOUNTER 2021-08-18 11:14 | Emergency (ER) | payer MEDICARE, OTHER, SELFPAY ==
[2021-08-18 11:22] VITALS: BP 107/66; PULSE 70; RESP 17; TEMP 37.8; O2SAT 96
--- NOTE | 2021-08-18 12:06 | ED.URI ---
HPI - URI/Sore Throat General Chief Complaint: Upper Respiratory Infection Stated Complaint: fever Time Seen by Provider: 08/18/21 12:06 Source: patient Mode of arrival: ambulatory Limitations: no limitations History of Present Illness HPI Narrative: 66-year-old male presents with complaint of fatigue, low-grade fever, body aches, joint pain, headache, cough that started last night. Reports that he works at [employer], also recently celebrated a grandchild's birthday. Is vaccinated for COVID. Has not taken any [id number] medications to treat symptoms. States every joint in my body is hurting All systems reviewed and negative except as noted above. Related Data Home Medications Medication Instructions Recorded Confirmed simvastatin 40 mg tablet 40 mg PO HS 01/07/20 08/16/21 ascorbic acid (vitamin C) 1,000 mg 1 g PO HS 02/24/20 08/16/21 tablet coenzyme Q10 300 mg capsule (Co 300 mg PO HS 02/24/20 08/16/21 Q-10) cyanocobalamin (vitamin B-12) 1,000 mcg PO HS 02/24/20 08/16/21 1,000 mcg tablet,extended release (Vitamin B-12 ER) magnesium 500 mg tablet 500 mg PO HS 02/24/20 08/16/21 multivitamin 1 tablet PO DAILY 02/24/20 08/16/21 pyridoxine (vitamin B6) 100 mg 100 mg PO HS 02/24/20 08/16/21 tablet (Vitamin B-6) vitamin B complex 2 cap PO DAILY 02/24/20 08/16/21 omeprazole 20 mg capsule,delayed 20 mg PO DAILY 07/13/20 08/16/21 release calcium carbonate 600 mg calcium 600 mg PO DAILY 04/07/21 08/16/21 (1,500 mg) tablet (Calcium) Allergies Allergy/AdvReac Type Severity Reaction Status Date / Time adenosine Allergy Severe Anaphylactic Verified 08/18/21 11:19 Shock oxycodone [From OxyContin] Allergy Severe Hallucinati Verified 08/18/21 11:19 ng Review of Systems Review of Systems: CONSTITUTIONAL: Reports fever, chills and sweats. EYES: Denies visual changes, redness, or discharge. ENT: Denies rhinorrhea, congestion, sore throat, or otalgia. CARDIOVASCULAR: Denies chest pain, palpitations, or edema. RESPIRATORY: Reports cough. Denies dyspnea. GASTROINTESTINAL: Denies abdominal pain, nausea, vomiting, or diarrhea. GENITOURINARY: Denies dysuria or hematuria. SKIN: Denies rash or itching. MUSCULOSKELETAL: Denies back pain, joint pain. Reports myalgia. NEUROLOGIC: Denies headache, numbness, or weakness. PSYCHIATRIC: Denies anxiety or depression. All other systems reviewed are negative, except as documented in HPI. [facility] Past Medical History Medical History Anxiety BPH (benign prostatic hyperplasia) Diabetes DM2 (diabetes mellitus, type 2) Hearing loss Heart attack Hemoglobin A1c greater than 8.0 percent last charted A1c 01/08/2020 was 8.1 Hemoglobin A1c less than 7.0% 02/06/19 A1C = 6.[address] Brody office Hyperlipidemia Hypertension Lisfranc's sprain Obesity PFO (patent foramen ovale) TIA (transient ischemic attack) Surgical History Surgical History H/O elbow surgery right and left arm H/O inguinal hernia repair left side History of facial surgery injury to face with multiple sutures History of hand surgery Right pinky finger 2011 Left ring finger 1963 per patient questionnaire S/P tonsillectomy and adenoidectomy Family History Family History Unknown Unknown family medical history patient was adopted Social History Social History Social History: the patient lives with a significant other. The patient has 3 daughters. He is . He works for [employer]. He does not drink any alcohol but occasionally has some whiskey. He quit smoking in 1985. He desires to be a full code and does not have a durable power estate attorney for healthcare. He does use marijuana or illicit drugs Smoking packs per day: 1.5 Smoking cigaret
== END 2021-08-18 12:17 | disposition home or self-care (01) ==
PROVIDERS: Emergency Provider Nurse Practitioner Family; PCP Family Medicine Adolescent Medicine
DX: U07.1 COVID-19 (principal); E11.9 Type 2 diabetes mellitus without complications; I10 Essential (primary) hypertension; E78.5 Hyperlipidemia, unspecified; Z87.891 Personal history of nicotine dependence; E66.9 Obesity, unspecified; Z68.37 Body mass index [BMI] 37.0-37.9, adult; Z86.73 Personal history of transient ischemic attack (TIA), and cerebral infarction without residual deficits
CPT/HCPCS: 87426; 87804; 87880; 99213; C9803; G0463

== ENCOUNTER → 2021-10-09 13:09 | Outpatient (CLI) | payer MEDICARE, OTHER, SELFPAY ==
--- NOTE | ~2021-10-09 | MR_ITS ---
. EXAMINATION: MR lumbar spine wo con DATE: 10/09/2021 13:33 INDICATION: Low back pain. TECHNIQUE: Magnetic resonance imaging (MRI) of the lumbar spine was performed without intravenous con trast. Sequences included sagittal T2-weighted FSE, sagittal T2-weighted FS FSE, sagittal T1-weighted FSE, and axial T2-weighted FSE. COMPARISON: Lumbar spine radiographs 08/16/2021 FINDINGS: There is 9 degrees dextrocurvature of thoracolumbar spine. Vertebral body heights are jaspreet l. There is mildly decreased disc height at L3-L4 and L4-L5 and moderately decreased disc height at L 5-S1 with endplate remodeling. The distal spinal cord signal intensity is normal. The conus medullari s is at T12-L1. The following disc levels are specifically discussed: L1-L2: The disc does not extend beyond the endplate margin. There is mild bilateral facet joint osteo arthritis. There is no neural foraminal stenosis. There is no central canal stenosis. L2-L3: The disc is bulging and has an annular fissure. There is mild bilateral facet joint osteoarthr itis. There is mild bilateral neural foraminal stenosis. There is mild central canal stenosis. L3-L4: The disc is bulging and has an annular fissure. There is mild bilateral facet joint osteoarthr itis. There is moderate right and mild left neural foraminal stenosis. There is mild central canal st enosis. L4-L5: The disc is bulging and has an annular fissure. There is severe bilateral facet joint osteoart hritis. There is moderate right and mild left neural foraminal stenosis. There is mild central canal stenosis. L5-S1: The disc is bulging and has an annular fissure. There is severe right and moderate left facet joint osteoarthritis. There is moderate bilateral neural foraminal stenosis. There is mild central ca nal stenosis. IMPRESSION: 1. Moderate lumbar spondylosis. Reviewed, dictated and finalized at location A.
== END ==
PROVIDERS: PCP Family Medicine Adolescent Medicine; Visit Provider Physician Assistant
DX: M47.896 Other spondylosis, lumbar region (principal)
CPT/HCPCS: 72148

== ENCOUNTER → 2021-11-25 07:28 | Outpatient (CLI) | payer MEDICARE, OTHER, SELFPAY ==
--- NOTE | ~2021-11-25 | MR_ITS ---
EXAMINATION: MR shoulder LT wo con DATE: 11/25/2021 08:36 INDICATION: Generalized left shoulder pain and limited range of motion. TECHNIQUE: Magnetic resonance imaging (MRI) of the left shoulder was performed without intravenous co ntrast. Sequences included axial PD-weighted FS FSE, coronal oblique PD-weighted FS FSE and T2-weight ed FS FSE, and sagittal oblique T2-weighted FS FSE and T1-weighted FSE. COMPARISON: X-ray left shoulder 08/16/2021. FINDINGS: Coracoacromial arch: Minimal anterolateral downsloping of the type II acromion. No subacromial or subcoracoid narrowing. M ild hypertrophy of the AC joint. Rotator cuff: Bursal sided fraying. 4 mm full-thickness tear of the infraspinatus at its insertion. Longitudinally oriented abnormal signal within the musculotendinous junction of the infraspinatus and supraspinatus. Subscapularis and teres minor are intact. Biceps tendon and glenoid labrum: Long and short heads of biceps tendon are intact. The glenoid labrum is intact. Fluid: Mild subacromial/subdeltoid fluid. Bones/cartilage: Mild glenohumeral cartilage thinning. No suspicious focal or diffuse marrow signal. IMPRESSION: 1. 4 mm full-thickness tear of the infraspinatus at its insertion. 2. Interstitial type tears of the supraspinatus and infraspinatus. 3. Mild subacromial subdeltoid bursitis with bursal sided fraying. Reviewed, dictated and finalized at location K.
== END ==
PROVIDERS: PCP Family Medicine Adolescent Medicine
DX: S43.492D Other sprain of left shoulder joint, subsequent encounter (principal); S46.012D Strain of muscle(s) and tendon(s) of the rotator cuff of left shoulder, subsequent encounter; X58.XXXD Exposure to other specified factors, subsequent encounter
CPT/HCPCS: 73221

== ENCOUNTER 2022-01-30 08:19 | Outpatient (CLI) | payer MEDICARE, OTHER, SELFPAY ==
--- NOTE | 2022-01-30 08:50 | ECG_ITS ---
Measurements Intervals [place] Rate: 57 P: 8 PA: 212 QRS: -18 QRSD: 112 T: 7 QT: 432 QTc: 424 Interpretive Statements SINUS BRADYCARDIA WITH FIRST DEGREE AV BLOCK INTRAVENTRICULAR CONDUCTION DELAY BORDERLINE T WAVE ABNORMALITY- INFERIOR LEADS BASELINE WANDER- I, II BORDERLINE ECG COMPARED TO ECG 11/17/2020 08:03:30 SINUS BRADYCARDIA NOW PRESENT FIRST DEGREE AV BLOCK NOW PRESENT Electronically Signed On 01-30-2022 9:54:22 VIDEO INTERN by Brian Gonzalez D.O.
== END 2022-01-30 08:20 | disposition home or self-care (01) ==
LOC: ANHLAB 08:22
PROVIDERS: Visit Provider Internal Medicine Cardiovascular Disease
DX: Z01.818 Encounter for other preprocedural examination (principal); G45.9 Transient cerebral ischemic attack, unspecified; R00.1 Bradycardia, unspecified; I44.0 Atrioventricular block, first degree
CPT/HCPCS: 93005

== ENCOUNTER 2022-02-02 13:46 | Emergency (ER) | payer MEDICARE, OTHER, SELFPAY ==
--- NOTE | ~2022-02-02 | XR_ITS ---
EXAMINATION: XR foot LT min 3V DATE: 02/02/2022 14:47 INDICATION: Bruising at the left fifth toe post trauma TECHNIQUE: Dorsoplantar, two oblique and lateral views of the left foot were obtained. COMPARISON: 05/09/2021 FINDINGS: Bone alignment remains normal. No fracture. Mild polyarticular osteoarthritis at the first metatarsop halangeal as well as a few tarsometatarsal and interphalangeal joints. Small plantar calcaneal spur. Soft tissue swelling about the base of the fifth toe. IMPRESSION: 1. 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 No acute osseous abnormality. Reviewed, dictated and finalized at location A. NSIC ACCOUNTANT IMPRESSION: 1. 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 No acute oss eous abnormality.
--- NOTE | 2022-02-02 13:51 | ED.LOWEXIN ---
HPI - Extremity Injury (Lower) General Chief Complaint: Extremity Injury, Lower Stated Complaint: left 4th/5th digit toe Time Seen by Provider: 02/02/22 13:51 Source: patient Mode of arrival: ambulatory Limitations: no limitations History of Present Illness HPI Narrative: Mr. Walton is a 66-year-old male patient presenting to the clinic today with complaints of left 4th and 5th toe pain. He reports he kicked a table around 2:00 a.m. this morning and has pain to the left 5th and 4th toes. He does have some bruising noted to the left 5th toe Related Data Home Medications Medication Instructions Recorded Confirmed ascorbic acid (vitamin C) 1,000 mg 1 g PO HS 02/24/20 01/10/22 tablet coenzyme Q10 300 mg capsule (Co 300 mg PO HS 02/24/20 01/10/22 Q-10) cyanocobalamin (vitamin B-12) 1,000 mcg PO HS 02/24/20 01/10/22 1,000 mcg tablet,extended release (Vitamin B-12 ER) magnesium 500 mg tablet 500 mg PO HS 02/24/20 01/10/22 multivitamin 1 tablet PO DAILY 02/24/20 01/10/22 pyridoxine (vitamin B6) 100 mg 100 mg PO HS 02/24/20 01/10/22 tablet (Vitamin B-6) vitamin B complex 2 cap PO DAILY 02/24/20 01/10/22 cholecalciferol (vitamin D3) 25 25 mcg PO DAILY 09/12/21 01/10/22 mcg (1,000 unit) capsule Fiber Con 02/02/22 Allergies Allergy/AdvReac Type Severity Reaction Status Date / Time adenosine Allergy Severe Anaphylactic Verified 02/01/22 07:43 Shock oxycodone [From OxyContin] Allergy Severe Hallucinati Verified 02/01/22 07:43 ng Review of Systems Review of Systems: Pertinent positives per HPI. Patient denies any fever, chills, rash, headache, visual changes, dizziness, cough, runny nose, sore throat, shortness of breath, chest pain, palpitations, nausea, vomiting, diarrhea, constipation, abdominal pain, or any urinary issues. PMFSH Past Medical History Medical History Acute left-sided weakness Anxiety Biceps tendonitis BPH (benign prostatic hyperplasia) Chest pain COVID-19 Diabetes DM2 (diabetes mellitus, type 2) Encounter for diagnostic colonoscopy due to change in bowel habits Hearing loss Heart attack Hemoglobin A1c greater than 8.0 percent last charted A1c 01/08/2020 was 8.1 Hemoglobin A1c less than 7.0% 02/06/19 A1C = 6.[address] Brody office Hyperlipidemia Hypertension Lisfranc's sprain Muscle cramps at night Obesity Pain in left shoulder Pain in left wrist PFO (patent foramen ovale) SLAP tear of shoulder TIA (transient ischemic attack) Surgical History Surgical History H/O elbow surgery right and left arm H/O inguinal hernia repair left side History of facial surgery injury to face with multiple sutures History of hand surgery Right pinky finger 2010 Left ring finger 1963 per patient questionnaire S/P tonsillectomy and adenoidectomy Family History Family History Unknown Unknown family medical history patient was adopted Social History Social History Social History: the patient lives with a significant other. The patient has 3 daughters. He is . He works for [employer]. He does not drink any alcohol but occasionally has some whiskey. He quit smoking in 1985. He desires to be a full code and does not have a durable power environmental attorney for healthcare. He does use marijuana or illicit drugs Smoking packs per day: 1.5 Smoking cigarettes per day: 30.0 Years smoked: 13 Smoking pack-years: 19.50 Smoking status: Never smoker Tobacco type: cigarettes Smoking end date: 03/25/85 Additional smoking assessment comments: Quit Smoking 1985. Alcohol intake: current Alcohol use details: [place] 0 Substance use: never Gender identity (if verbalized by the patient): Male Sexual Orientation (i
[2022-02-02 14:01] VITALS: BP 102/84; PULSE 78; RESP 18; TEMP 36.2; O2SAT 94
--- NOTE | 2022-02-02 14:34 | PC.NURSE ---
1407-Report received from Yolie Cespedes.
--- NOTE | 2022-02-02 14:35 | PC.NURSE ---
1433Pt arrived at [facility]
== END 2022-02-02 15:09 | disposition home or self-care (01) ==
PROVIDERS: Emergency Provider Nurse Practitioner Family; PCP Family Medicine Adolescent Medicine
DX: S90.122A Contusion of left lesser toe(s) without damage to nail, initial encounter (principal); S93.505A Unspecified sprain of left lesser toe(s), initial encounter; S99.922A Unspecified injury of left foot, initial encounter; E11.9 Type 2 diabetes mellitus without complications; E78.5 Hyperlipidemia, unspecified; I10 Essential (primary) hypertension; Z87.891 Personal history of nicotine dependence; W22.03XA Walked into furniture, initial encounter
CPT/HCPCS: 73630; 99213; G0463

== ENCOUNTER 2022-06-19 20:38 | Emergency (ER) | payer OTHER, MEDICARE, SELFPAY ==
[2022-06-19 20:51] VITALS: BP 173/83; PULSE 58; RESP 15; TEMP 36.3; O2SAT 95
--- NOTE | 2022-06-19 21:19 | PC.NURSE ---
EDP at bedside to assess pt.
--- NOTE | 2022-06-19 21:24 | ED.WOUNDLAC ---
HPI - Wound/Laceration General Chief Complaint: Wound/Laceration Stated Complaint: laceration Time Seen by Provider: 06/19/22 21:15 History of Present Illness HPI narrative: Patient is a 67-year-old male here after he sustained a wound to his right upper lip. Patient states that he was walking in his garage when he accidentally stepped on the bottom of a push broom when the handle came up and struck him in the mouth. He believes he bit down on the upper portion of his lip as well. Denies LOC, falls. He does not take blood thinners. Tetanus is up-to-date. Related Data Home Medications Medication Instructions Recorded Confirmed ascorbic acid (vitamin C) 1,000 mg 1 g PO HS 02/24/20 05/16/22 tablet coenzyme Q10 300 mg capsule (Co 300 mg PO HS 02/24/20 05/16/22 Q-10) cyanocobalamin (vitamin B-12) 1,000 mcg PO HS 02/24/20 05/16/22 1,000 mcg tablet,extended release (Vitamin B-12 ER) magnesium 500 mg tablet 500 mg PO HS 02/24/20 05/16/22 multivitamin 1 tablet PO DAILY 02/24/20 05/16/22 pyridoxine (vitamin B6) 100 mg 100 mg PO HS 02/24/20 05/16/22 tablet (Vitamin B-6) vitamin B complex 2 cap PO DAILY 02/24/20 05/16/22 cholecalciferol (vitamin D3) 25 25 mcg PO DAILY 09/12/21 05/16/22 mcg (1,000 unit) capsule Fiber Con 02/02/22 05/16/22 diclofenac sodium 75 mg 75 mg PO BID 05/16/22 05/16/22 tablet,delayed release piroxicam 20 mg capsule 20 mg PO DAILY 05/16/22 05/16/22 Allergies Allergy/AdvReac Type Severity Reaction Status Date / Time adenosine Allergy Severe Anaphylactic Verified 05/16/22 11:05 Shock oxycodone [From OxyContin] Allergy Severe Hallucinati Verified 05/16/22 11:05 ng Review of Systems Review of Systems: Gen.: Denies fevers or chills Eyes: Denies eye pain or visual change ENT: Denies congestion Respiratory: Denies shortness of breath or cough CV: Denies chest pain or palpitations GI: Denies abdominal pain nausea, emesis or diarrhea denies burning, urgency, frequency or hematuria Musculoskeletal: Denies back pain or muscle pain Neuro: Denies numbness, tingling, weakness or focal weakness Skin: Reports laceration to lip Except as documented, all other systems reviewed and negative [facility] Past Medical History Medical History Acute left-sided weakness Anxiety Biceps tendonitis BPH (benign prostatic hyperplasia) Chest pain COVID-19 Diabetes DM2 (diabetes mellitus, type 2) Encounter for diagnostic colonoscopy due to change in bowel habits Hearing loss Heart attack Hemoglobin A1c greater than 8.0 percent last charted A1c 01/08/2020 was 8.1 Hemoglobin A1c less than 7.0% 02/06/19 A1C = 6.[address] Brody office Hyperlipidemia Hypertension Lisfranc's sprain Muscle cramps at night Obesity Pain in left shoulder Pain in left wrist PFO (patent foramen ovale) SLAP tear of shoulder TIA (transient ischemic attack) Surgical History Surgical History H/O elbow surgery right and left arm H/O inguinal hernia repair left side History of facial surgery injury to face with multiple sutures History of hand surgery Right pinky finger 2010 Left ring finger 1963 per patient questionnaire S/P tonsillectomy and adenoidectomy Family History Family History Unknown Unknown family medical history patient was adopted Social History Social History Social History: the patient lives with a significant other. The patient has 3 daughters. He is . He works for [employer]. He does not drink any alcohol but occasionally has some whiskey. He quit smoking in 1985. He desires to be a full code and does not have a durable power mergers and acquisitions attorney for healthcare. He does use marijuana or illicit drugs Smoking packs per day: 1.5 Sm
== END 2022-06-19 22:13 | disposition home or self-care (01) ==
PROVIDERS: Emergency Provider Physician Assistant; PCP Family Medicine Adolescent Medicine
DX: S01.511A Laceration without foreign body of lip, initial encounter (principal); E11.9 Type 2 diabetes mellitus without complications; I25.2 Old myocardial infarction; E78.5 Hyperlipidemia, unspecified; N40.0 Benign prostatic hyperplasia without lower urinary tract symptoms; E66.9 Obesity, unspecified; Z68.31 Body mass index [BMI] 31.0-31.9, adult; Z86.16 Personal history of COVID-19; Z86.73 Personal history of transient ischemic attack (TIA), and cerebral infarction without residual deficits; Z87.891 Personal history of nicotine dependence; Z79.84 Long term (current) use of oral hypoglycemic drugs; Z79.82 Long term (current) use of aspirin; Z79.4 Long term (current) use of insulin; W22.8XXA Striking against or struck by other objects, initial encounter
CPT/HCPCS: 99282

== ENCOUNTER 2022-11-03 09:55 | Emergency (ER) | payer OTHER, MEDICARE, SELFPAY ==
[2022-11-03 10:13] VITALS: BP 114/68; PULSE 73; RESP 16; TEMP 37; O2SAT 96
--- NOTE | 2022-11-03 10:31 | ED.URI ---
HPI - URI/Sore Throat General Chief Complaint: Upper Respiratory Infection Stated Complaint: Cough,Sore Throat,Body Aches,Loss of Taste Time Seen by Provider: 11/03/22 10:14 Source: patient and RN notes reviewed Mode of arrival: ambulatory Limitations: no limitations History of Present Illness HPI Narrative: Patient presents today complaining of productive cough, rhinorrhea, postnasal drip, body aches, nausea since yesterday with decreased taste that started this morning. Denies fever or shortness of breath. Currently rates his body aches 6/10 and has been taking Tylenol with some relief. Patient was exposed to COVID-19 by a co-worker this week. He is a nonsmoker. History of diabetes. He has been vaccinated a.m. boosted against COVID-19 Related Data Home Medications Medication Instructions Recorded Confirmed ascorbic acid (vitamin C) 1,000 mg 1 g PO HS 02/24/20 11/03/22 tablet coenzyme Q10 300 mg capsule (Co 300 mg PO HS 02/24/20 11/03/22 Q-10) cyanocobalamin (vitamin B-12) 1,000 mcg PO HS 02/24/20 11/03/22 1,000 mcg tablet,extended release (Vitamin B-12 ER) magnesium 500 mg tablet 500 mg PO HS 02/24/20 11/03/22 multivitamin 1 tablet PO DAILY 02/24/20 11/03/22 pyridoxine (vitamin B6) 100 mg 100 mg PO HS 02/24/20 11/03/22 tablet (Vitamin B-6) vitamin B complex 2 cap PO DAILY 02/24/20 11/03/22 cholecalciferol (vitamin D3) 25 25 mcg PO DAILY 09/12/21 11/03/22 mcg (1,000 unit) capsule diclofenac sodium 75 mg 75 mg PO BID 05/16/22 11/03/22 tablet,delayed release piroxicam 20 mg capsule 20 mg PO DAILY 05/16/22 11/03/22 lisinopril 40 mg tablet 40 mg PO DAILY 07/20/22 11/03/22 amlodipine 5 mg tablet 5 mg PO DAILY 11/03/22 11/03/22 Allergies Allergy/AdvReac Type Severity Reaction Status Date / Time adenosine Allergy Severe Anaphylactic Verified 11/03/22 10:04 Shock oxycodone [From OxyContin] Allergy Severe Hallucinati Verified 11/03/22 10:04 ng Review of Systems Review of Systems: CONSTITUTIONAL: Denies fever, chills, or sweats.+ body aches EYES: Denies visual changes, redness, or discharge. ENT: Denies congestion, sore throat, or otalgia.+ rhinorrhea, postnasal drip, decreased taste CARDIOVASCULAR: Denies chest pain, palpitations, or edema. RESPIRATORY: Denies dyspnea.+ cough GASTROINTESTINAL: Denies abdominal pain, vomiting, or diarrhea.+ nausea GENITOURINARY: Denies dysuria or hematuria. SKIN: Denies rash, itching, or wounds. MUSCULOSKELETAL: Denies back pain, joint pain, or myalgia. NEUROLOGIC: Denies headache, numbness, tingling, or weakness. PSYCH: Denies depression or anxiety. [facility] Past Medical History Medical History Acute left-sided weakness Anxiety Biceps tendonitis BPH (benign prostatic hyperplasia) Chest pain COVID-19 Diabetes DM2 (diabetes mellitus, type 2) Encounter for diagnostic colonoscopy due to change in bowel habits Hearing loss Heart attack Hemoglobin A1c greater than 8.0 percent last charted A1c 01/08/2020 was 8.1 Hemoglobin A1c less than 7.0% 02/06/19 A1C = 6.[address] Brody office Hyperlipidemia Hypertension Lisfranc's sprain Muscle cramps at night Obesity Pain in left shoulder Pain in left wrist PFO (patent foramen ovale) SLAP tear of shoulder TIA (transient ischemic attack) Surgical History Surgical History H/O elbow surgery right and left arm H/O inguinal hernia repair left side History of facial surgery injury to face with multiple sutures History of hand surgery Right pinky finger 2010 Left ring finger 1963 per patient questionnaire S/P tonsillectomy and adenoidectomy Family History Family History Unknown Unknown family medical history patient was adopted Social History Social History (Reviewed 11/03/22 @ 10:32 by Claudia Jimenez
== END 2022-11-03 10:48 | disposition home or self-care (01) ==
PROVIDERS: Emergency Provider Nurse Practitioner; PCP Family Medicine Adolescent Medicine
DX: U07.1 COVID-19 (principal); N40.0 Benign prostatic hyperplasia without lower urinary tract symptoms; E11.9 Type 2 diabetes mellitus without complications; Z79.4 Long term (current) use of insulin; I25.2 Old myocardial infarction; E78.5 Hyperlipidemia, unspecified; I10 Essential (primary) hypertension; E66.9 Obesity, unspecified; Z68.31 Body mass index [BMI] 31.0-31.9, adult; Z86.73 Personal history of transient ischemic attack (TIA), and cerebral infarction without residual deficits; Z87.891 Personal history of nicotine dependence; F41.9 Anxiety disorder, unspecified
CPT/HCPCS: 87426; 99213; C9803; G0463

== ENCOUNTER 2023-02-11 10:39 | Outpatient (CLI) | payer OTHER, MEDICARE, SELFPAY ==
--- NOTE | ~2023-02-11 | XR_ITS ---
EXAMINATION: XR chest 2V DATE: 02/11/2023 11:18 INDICATION: Cough, unspecified. TECHNIQUE: Frontal and lateral views of the chest were obtained. COMPARISON: Chest 2 views 11/17/2020 FINDINGS: There is mild atelectasis at the lung bases. No pleural effusion or pneumothorax. The heart size is normal. IMPRESSION: 1. Mild atelectasis at the lung bases. Reviewed, dictated and finalized at location E. ENGRAVER
[2023-02-11 11:30] LABS: Basophils Percent Auto 0.9 % (0.2-1.2); Eosinophils Percent Auto 0.7 % (0-4.4); Hematocrit 41.5 % (42.0-52.0); Hemoglobin 13.8 g/dL (14.0-18.0); Immature Granulocyte Absolute 0.01 K/mm3 (0.00-0.031); Immature Granulocyte Percent A 0.2 % (0-0.5); Lymphocytes Absolute Auto 1.18 K/mm3 (0.9-3.2); Lymphocytes Percent Auto 27.8 % (18.3-44.2); Mean Corpuscular HGB Conc 33.3 g/dl (32-36); Mean Corpuscular Hemoglobin 32.1 pg (26-34); Mean Corpuscular Volume 96.5 fl (80-100); Mean Platelet Volume 10.1 fl (7.4-10.4); Monocytes Absolute Auto 0.6 K/mm3 (0.1-0.6); Monocytes Percent Auto 13.4 % (2.6-8.5); Neutrophils Absolute Auto 2.4 K/mm3 (1.3-6.7); Platelet Count Result 169 k/mm3 (150-375); Red Cell Distribution Width 12.4 % (11.5-14.5); White Blood Count 4.2 K/mm3 (4.5-10.0)
[2023-02-11 11:47] LABS: Alanine Aminotransferase 51 U/L (6-50); Albumin Level 4.4 g/dL (3.5-5.1); Alkaline Phosphatase 59 U/L (38-126); Anion Gap 10 mmol/L (8-16); Aspartate Amino Transferase 58 U/L (17-59); Bilirubin,Total 0.8 mg/dL (0.2-1.3); Blood Urea Nitrogen 16 mg/dL (9-20); Carbon Dioxide 26 mmol/L (22-30); Chloride 101 mmol/L (98-107); Estimated Glomerular Filt Rate 55; Glucose 94 mg/dL (65-110); Sodium 137 mmol/L (137-145)
[2023-02-11 12:12] LABS: Influenza A QL RT-PCR Negative (Negative); Influenza B QL RT-PCR Negative (Negative); RSV RNA, RT-PCR Negative (Negative); SARS-CoV-2 RNA PCR Negative (Negative)
== END 2023-02-11 10:40 | disposition home or self-care (01) ==
PROVIDERS: PCP Family Medicine Adolescent Medicine; Visit Provider Nurse Practitioner Family
DX: R05.9 Cough, unspecified (principal); B34.9 Viral infection, unspecified
CPT/HCPCS: 36415; 71046; 80053; 85025; 87637

== ENCOUNTER 2023-02-19 14:52 | Emergency (ER) | payer OTHER, MEDICARE, SELFPAY ==
[2023-02-19] VITALS (9 sets, daily range): BP systolic 112–159; BP diastolic 67–97; PULSE 60–73; RESP 15–20; TEMP 36.6; O2SAT 92–100
--- NOTE | ~2023-02-19 | XR_ITS ---
EXAMINATION: XR chest 2V 02/19/2023 15:37 INDICATION: Chest pain PROCEDURE: 2 view chest COMPARISON: Comparison to multiple prior studies sequentially, with oldest reviewed study dated 02/22. FINDINGS: The lungs are clear. The cardiomediastinal silhouette is within normal limits. There are no pleural effusions. There is no pneumothorax suspected. IMPRESSION: 1: NO ACUTE CARDIOPULMONARY DISEASE. Reviewed, dictated and finalized at location L. SUPPORT CONSULTANT
--- NOTE | ~2023-02-19 | CT_ITS ---
EXAMINATION: CTA chest PE protocol DATE: 02/19/2023 16:59 INDICATION: Cough. Dyspnea. TECHNIQUE: Computed tomography angiography (CTA) of the chest was performed with 100 mL Omnipaque-350 intravenous contrast timed to evaluate the pulmonary arteries. Coronal maximum intensity projection 3D-reconstructions were created by the technologist. Automated exposure control and iterative reconst ruction technique were employed. The dose-length product was 676.98 mGy-cm. COMPARISON: CT abdomen 01/20/2015 FINDINGS: The lungs demonstrate mild atelectasis. No pleural effusion. The heart size is normal. No p ericardial effusion. There are coronary artery calcifications. There is no pulmonary embolus. There i s mild thoracic spondylosis. IMPRESSION: 1. No pulmonary embolus. Reviewed, dictated and finalized at location A. POLE OPERATOR IMPRESSION: 1. No pulmonary embolus.
--- NOTE | 2023-02-19 14:54 | ECG_ITS ---
Measurements Intervals [place] Rate: 65 P: 44 RI: 206 QRS: -10 QRSD: 106 T: 20 QT: 402 QTc: 418 Interpretive Statements SINUS RHYTHM CANNOT RULE OUT SEPTAL INFARCT, AGE INDETERMINATE BASELINE WANDER- V1 ABNORMAL ECG COMPARED TO ECG 01/30/2022 09:03:42 SINUS RHYTHM NOW PRESENT Electronically Signed On 02-20-2023 9:56:51 PACKAGER MACHINE by Brian Gonzalez D.O.
--- NOTE | 2023-02-19 15:24 | ED.SOB ---
HPI - SOB/Dyspnea General Chief Complaint: Shortness of Breath/Dyspnea Stated Complaint: sob Time Seen by Provider: 02/19/23 15:17 History of Present Illness HPI Narrative: Pt presents with a worsening cough and SOB over the last week. Pt says he had a fever of 101 last week but this resolved but the cough remained. Pt has had some intermittent SOB since getting covid 3 months ago but worse for the last week. Pt denies fever now or CP. Related Data Home Medications Medication Instructions Recorded Confirmed ascorbic acid (vitamin C) 1,000 mg 1 g PO HS 02/24/20 02/11/23 tablet coenzyme Q10 300 mg capsule (Co 300 mg PO HS 02/24/20 02/11/23 Q-10) cyanocobalamin (vitamin B-12) 1,000 mcg PO HS 02/24/20 02/11/23 1,000 mcg tablet,extended release (Vitamin B-12 ER) magnesium 500 mg tablet 500 mg PO HS 02/24/20 02/11/23 multivitamin 1 tablet PO DAILY 02/24/20 02/11/23 pyridoxine (vitamin B6) 100 mg 100 mg PO HS 02/24/20 02/11/23 tablet (Vitamin B-6) vitamin B complex 2 cap PO DAILY 02/24/20 02/11/23 cholecalciferol (vitamin D3) 25 25 mcg PO DAILY 09/12/21 02/11/23 mcg (1,000 unit) capsule diclofenac sodium 75 mg 75 mg PO BID 05/16/22 02/11/23 tablet,delayed release piroxicam 20 mg capsule 20 mg PO DAILY 05/16/22 02/11/23 apple cider vinegar 600 mg capsule mg PO 02/11/23 02/11/23 Allergies Allergy/AdvReac Type Severity Reaction Status Date / Time adenosine Allergy Severe Anaphylactic Verified 02/11/23 09:46 Shock oxycodone [From OxyContin] Allergy Severe Hallucinati Verified 02/11/23 09:46 ng Review of Systems Review of Systems: All systems reviewed & are unremarkable except as noted in HPI and below PMFSH Past Medical History Medical History Acute left-sided weakness Anxiety Biceps tendonitis BPH (benign prostatic hyperplasia) Chest pain COVID-19 Diabetes DM2 (diabetes mellitus, type 2) Encounter for diagnostic colonoscopy due to change in bowel habits Hearing loss Heart attack Hemoglobin A1c greater than 8.0 percent last charted A1c 01/08/2020 was 8.1 Hemoglobin A1c less than 7.0% 02/06/19 A1C = 6.[address] Brody office Hyperlipidemia Hypertension Lisfranc's sprain Muscle cramps at night Obesity Pain in left shoulder Pain in left wrist PFO (patent foramen ovale) SLAP tear of shoulder TIA (transient ischemic attack) Surgical History Surgical History H/O elbow surgery right and left arm H/O inguinal hernia repair left side History of facial surgery injury to face with multiple sutures History of hand surgery Right pinky finger 2010 Left ring finger 1963 per patient questionnaire S/P tonsillectomy and adenoidectomy Family History Family History Unknown Unknown family medical history patient was adopted Social History Social History Social History: the patient lives with a significant other. The patient has 3 daughters. He is . He works for [employer]. He does not drink any alcohol but occasionally has some whiskey. He quit smoking in 1985. He desires to be a full code and does not have a durable power vector control specialist for healthcare. He does use marijuana or illicit drugs Smoking packs per day: 1.5 Smoking cigarettes per day: 30.0 Years smoked: 13 Smoking pack-years: 19.50 Smoking status: Never smoker Tobacco type: cigarettes Smoking end date: 03/25/85 Additional smoking assessment comments: Quit Smoking 1985. Alcohol intake: current Alcohol use details: [place] 0 Substance use: never Lack of Transportation: No Lack of Food: Never True Concerned About Future Housing: No Difficulty Paying Gas/Electric Bills: No Difficulty Paying for Meds: No Currently Unemployed: No Education: Assoc
[2023-02-19] MEDS: ALBUTEROL SULFATE NEB 2.5 MG/3 ML INH INHALATION (15:42)
[2023-02-19] MEDS: IPRATROPIUM BR 0.02% INH SOLN 0.5 MG/2.5 ML VIAL INHALATION (15:42)
[2023-02-19 15:52] LABS: Basophils Percent Auto 0.5 % (0.2-1.2); Eosinophils Absolute Auto 0.1 K/mm3 (0-0.3); Eosinophils Percent Auto 1.7 % (0-4.4); Hematocrit 40.1 % (42.0-52.0); Hemoglobin 13.6 g/dL (14.0-18.0); Immature Granulocyte Absolute 0.11 K/mm3 (0.00-0.031); Immature Granulocyte Percent A 1.4 % (0-0.5); Lymphocytes Absolute Auto 2.36 K/mm3 (0.9-3.2); Lymphocytes Percent Auto 30.6 % (18.3-44.2); Mean Corpuscular HGB Conc 33.9 g/dl (32-36); Mean Corpuscular Hemoglobin 32.1 pg (26-34); Mean Corpuscular Volume 94.6 fl (80-100); Mean Platelet Volume 9.6 fl (7.4-10.4); Monocytes Absolute Auto 0.7 K/mm3 (0.1-0.6); Monocytes Percent Auto 8.8 % (2.6-8.5); Neutrophils Absolute Auto 4.4 K/mm3 (1.3-6.7); Platelet Count Result 217 k/mm3 (150-375); Red Blood Count 4.24 M/mm3 (4.6-6.20); White Blood Count 7.7 K/mm3 (4.5-10.0)
[2023-02-19 16:05] LABS: Alanine Aminotransferase 44 U/L (6-50); Albumin Level 4.5 g/dL (3.5-5.1); Alkaline Phosphatase 61 U/L (38-126); Anion Gap 10 mmol/L (8-16); Aspartate Amino Transferase 44 U/L (17-59); Bilirubin,Total 0.9 mg/dL (0.2-1.3); Blood Urea Nitrogen 16 mg/dL (9-20); Calcium 9.4 mg/dL (8.4-10.2); Carbon Dioxide 23 mmol/L (22-30); Chloride 107 mmol/L (98-107); Estimated CRCL calculation 70 ml/min; Estimated Glomerular Filt Rate > 60; Glucose 75 mg/dL (65-110); Magnesium 2.2 mg/dL (1.6-2.3); Potassium 4.1 mmol/L (3.4-5.0); Sodium 140 mmol/L (137-145)
[2023-02-19 16:13] LABS: INR 1.1; Partial Thromboplastin Time 27.1 SECONDS (22.3-36.8); Prothrombin Time 14.2 Seconds (11.1-14.7)
[2023-02-19 16:14] LABS: NT Pro B Type Natriuretic Pept 80 pg/mL (19.9-100)
[2023-02-19] MEDS: ACETAMINOPHEN 500 MG TABLET 1000 MG PO (16:35)
== END 2023-02-19 17:45 | disposition home or self-care (01) ==
PROVIDERS: Emergency Medicine; Emergency Provider Emergency Medicine; PCP Family Medicine Adolescent Medicine
DX: J40 Bronchitis, not specified as acute or chronic (principal); F41.9 Anxiety disorder, unspecified; N40.0 Benign prostatic hyperplasia without lower urinary tract symptoms; E11.9 Type 2 diabetes mellitus without complications; I25.2 Old myocardial infarction; I10 Essential (primary) hypertension; E78.5 Hyperlipidemia, unspecified
CPT/HCPCS: 36415; 71046; 71275; 80053; 83735; 83880; 85025; 85610; 85730; 87040; 93005; 94640; 99284; A9270; Q9967

== ENCOUNTER 2023-03-17 12:50 | Emergency (ER) | payer OTHER, MEDICARE, SELFPAY ==
[2023-03-17 13:26] VITALS: BP 135/73; PULSE 63; RESP 16; TEMP 37.1; O2SAT 99
--- NOTE | 2023-03-17 14:32 | ED.ANIMALBIT ---
HPI - Animal Bite General Chief Complaint: Animal Bite Stated Complaint: dog bite left arm Time Seen by Provider: 03/17/23 14:33 Source: patient Mode of arrival: ambulatory Limitations: no limitations History of Present Illness HPI narrative: 67-year-old male presented for concern of dog bite which occurred 1 week ago. He states he was bit by his puppy, which is up to date on vaccinations. He states he has been cleansing the site and applying Neosporin and a Band-Aid to the site, but continues to have redness and tenderness to the site. Denies drainage or fever. Related Data Home Medications Medication Instructions Recorded Confirmed ascorbic acid (vitamin C) 1,000 mg 1 g PO HS 02/24/20 03/17/23 tablet coenzyme Q10 300 mg capsule (Co 300 mg PO HS 02/24/20 03/17/23 Q-10) cyanocobalamin (vitamin B-12) 1,000 mcg PO HS 02/24/20 03/17/23 1,000 mcg tablet,extended release (Vitamin B-12 ER) magnesium 500 mg tablet 500 mg PO HS 02/24/20 03/17/23 multivitamin 1 tablet PO DAILY 02/24/20 03/17/23 pyridoxine (vitamin B6) 100 mg 100 mg PO HS 02/24/20 03/17/23 tablet (Vitamin B-6) vitamin B complex 2 cap PO DAILY 02/24/20 03/17/23 cholecalciferol (vitamin D3) 25 25 mcg PO DAILY 09/12/21 03/17/23 mcg (1,000 unit) capsule diclofenac sodium 75 mg 75 mg PO BID 05/16/22 03/17/23 tablet,delayed release piroxicam 20 mg capsule 20 mg PO DAILY 05/16/22 03/17/23 apple cider vinegar 600 mg capsule 600 mg PO DAILY 02/11/23 03/17/23 Allergies Allergy/AdvReac Type Severity Reaction Status Date / Time adenosine Allergy Severe Anaphylactic Verified 03/17/23 14:05 Shock oxycodone [From OxyContin] Allergy Severe Hallucinati Verified 03/17/23 14:05 ng Review of Systems Review of Systems: CONSTITUTIONAL: Denies body aches, fever, chills, or sweats. EYES: Denies visual changes, redness, or discharge. ENT: Denies rhinorrhea, congestion CARDIOVASCULAR: Denies chest pain, palpitations, or edema. RESPIRATORY: Denies cough or dyspnea. GASTROINTESTINAL: Denies abdominal pain, nausea, vomiting, or diarrhea. SKIN: reports skin changes left forearm MUSCULOSKELETAL: Denies back pain, joint pain, or myalgia. NEUROLOGIC: Denies headache, numbness, tingling, or weakness. [facility] Past Medical History Medical History Acute left-sided weakness Anxiety Biceps tendonitis BPH (benign prostatic hyperplasia) Chest pain COVID-19 Diabetes DM2 (diabetes mellitus, type 2) Encounter for diagnostic colonoscopy due to change in bowel habits Hearing loss Heart attack Hemoglobin A1c greater than 8.0 percent last charted A1c 01/08/2020 was 8.1 Hemoglobin A1c less than 7.0% 02/06/19 A1C = 6.[address] Brody office Hyperlipidemia Hypertension Lisfranc's sprain Muscle cramps at night Obesity Pain in left shoulder Pain in left wrist PFO (patent foramen ovale) SLAP tear of shoulder TIA (transient ischemic attack) Surgical History Surgical History H/O elbow surgery right and left arm H/O inguinal hernia repair left side History of facial surgery injury to face with multiple sutures History of hand surgery Right pinky finger 2010 Left ring finger 1963 per patient questionnaire S/P tonsillectomy and adenoidectomy Family History Family History Unknown Unknown family medical history patient was adopted Social History Social History Social History: the patient lives with a significant other. The patient has 3 daughters. He is . He works for [employer]. He does not drink any alcohol but occasionally has some whiskey. He quit smoking in 1985. He desires to be a full code and does not have a durable power tax associate attorney for healthcare. He does use marijuana or illicit drugs Smoking p
== END 2023-03-17 14:45 | disposition home or self-care (01) ==
PROVIDERS: Emergency Provider Nurse Practitioner Family; PCP Family Medicine Adolescent Medicine
DX: S41.152A Open bite of left upper arm, initial encounter (principal); L30.9 Dermatitis, unspecified; E11.9 Type 2 diabetes mellitus without complications; E78.5 Hyperlipidemia, unspecified; I10 Essential (primary) hypertension; Z86.73 Personal history of transient ischemic attack (TIA), and cerebral infarction without residual deficits; Z79.899 Other long term (current) drug therapy; Z87.891 Personal history of nicotine dependence; W54.0XXA Bitten by dog, initial encounter
CPT/HCPCS: 99213; G0463

== ENCOUNTER 2023-03-31 10:36 | Emergency (ER) | payer OTHER, MEDICARE, SELFPAY ==
--- NOTE | ~2023-03-31 | XR_ITS ---
XR chest 2V DATE: 03/31/2023 11:27 INDICATION: Cough. 94% pO2 TECHNIQUE: 2 views COMPARISON: 02/19/2023 CT pulmonary scan 02/19/2023 2 view chest FINDINGS: Normal heart size. No hilar or mediastinal enlargement. Mild aortic unfolding. No pulmonary infiltrate or consolidation, pleural effusion or pulmonary vascular congestion or pneumothorax. Degenerative spurring of the thoracic spine. IMPRESSION: No active cardiopulmonary disease Reviewed, dictated and finalized at location A. OMIC FORECASTER
--- NOTE | 2023-03-31 10:54 | ED.GENADULT ---
HPI - General Adult General Chief complaint: Upper Respiratory Infection Stated complaint: cough,bodyaches,congestion Time Seen by Provider: 03/31/23 10:54 Source: patient Mode of arrival: ambulatory Limitations: no limitations History of Present Illness HPI narrative: 67-year-old male patient presents to the [facility] with complaints of a cough that started yesterday. Patient states he has not been feeling well since yesterday and has been fatigued, body aches and chills. Denies fevers. Patient states he did have COVID back in January and was seen at [facility] and was treated for bronchitis at this time. Patient states his cough feels a lot like when he was treated in January. Patient states he has chest pain when he coughs recently had a follow-up with his seasoner hand in March of this year. Patient denies any abdominal pain. Patient is a previous smoker and quit about 30 years ago. Patient is a current type 2 diabetic. Patient states he is not taking anything for his symptoms since they have started. Patient states he does feel short of breath at times Related Data Home Medications Medication Instructions Recorded Confirmed ascorbic acid (vitamin C) 1,000 mg 1 g PO HS 02/24/20 03/27/23 tablet coenzyme Q10 300 mg capsule (Co 300 mg PO HS 02/24/20 03/27/23 Q-10) cyanocobalamin (vitamin B-12) 1,000 mcg PO HS 02/24/20 03/27/23 1,000 mcg tablet,extended release (Vitamin B-12 ER) magnesium 500 mg tablet 500 mg PO HS 02/24/20 03/27/23 multivitamin 1 tablet PO DAILY 02/24/20 03/27/23 pyridoxine (vitamin B6) 100 mg 100 mg PO HS 02/24/20 03/27/23 tablet (Vitamin B-6) vitamin B complex 2 cap PO DAILY 02/24/20 03/27/23 cholecalciferol (vitamin D3) 25 25 mcg PO DAILY 09/12/21 03/27/23 mcg (1,000 unit) capsule diclofenac sodium 75 mg 75 mg PO BID 05/16/22 03/27/23 tablet,delayed release apple cider vinegar 600 mg capsule 600 mg PO DAILY 02/11/23 03/27/23 Allergies Allergy/AdvReac Type Severity Reaction Status Date / Time adenosine Allergy Severe Anaphylactic Verified 03/31/23 10:57 Shock oxycodone [From OxyContin] Allergy Severe Hallucinati Verified 03/31/23 10:57 ng Review of Systems Review of Systems: CONSTITUTIONAL: Denies fever, positive body aches and chills, denies sweats. EYES: Denies visual changes, redness, or discharge. ENT: Denies rhinorrhea, positive congestion, denies sore throat, or otalgia. CARDIOVASCULAR: positive chest pain with coughing, denies palpitations, or edema. RESPIRATORY: positive cough with dyspnea. GASTROINTESTINAL: Denies abdominal pain, nausea, vomiting, or diarrhea. GENITOURINARY: Denies dysuria or hematuria. SKIN: Denies rash or itching. MUSCULOSKELETAL: Denies back pain, joint pain, or myalgia. NEUROLOGIC: Denies headache, numbness, or weakness. PSYCHIATRIC: Denies anxiety or depression. [facility] Past Medical History Medical History Acute left-sided weakness Anxiety Biceps tendonitis BPH (benign prostatic hyperplasia) Chest pain COVID-19 Diabetes DM2 (diabetes mellitus, type 2) Encounter for diagnostic colonoscopy due to change in bowel habits Hearing loss Heart attack Hemoglobin A1c greater than 8.0 percent last charted A1c 01/08/2020 was 8.1 Hemoglobin A1c less than 7.0% 02/06/19 A1C = 6.[address] Brody office Hyperlipidemia Hypertension Lisfranc's sprain Muscle cramps at night Obesity Pain in left shoulder Pain in left wrist PFO (patent foramen ovale) SLAP tear of shoulder TIA (transient ischemic attack) Surgical History Surgical History H/O elbow surgery right and left arm H/O inguinal hernia repair left side History of facial surgery injury to face with multiple sutures History of hand surgery Right pinky finger 2011 Left ring finger 1963 per patient questionnaire S/P tonsillectomy and adenoi
[2023-03-31 10:57] VITALS: BP 112/57; PULSE 76; RESP 16; TEMP 36.7; O2SAT 94
[2023-03-31 11:00] VITALS: BP 112/57; PULSE 76; RESP 16; TEMP 36.7; O2SAT 94
[2023-03-31] MEDS: IPRATROPIUM BR 0.02% INH SOLN 0.5 MG/2.5 ML VIAL INHALATION (11:36)
[2023-03-31] MEDS: ALBUTEROL SULFATE NEB 2.5 MG/3 ML INH INHALATION (11:36)
--- NOTE | 2023-03-31 11:41 | ECG_ITS ---
Measurements Intervals [place] Rate: 72 P: 42 TN: 197 QRS: 10 QRSD: 106 T: 0 QT: 372 QTc: 409 Interpretive Statements SINUS RHYTHM BORDERLINE R WAVE PROGRESSION, ANTERIOR LEADS MINIMAL Q WAVES- INFERIOR LEADS BORDERLINE T WAVE ABNORMALITY- INFERIOR LEADS BORDERLINE ECG COMPARED TO ECG 02/19/2023 15:02:28 NO SIGNIFICANT CHANGES Electronically Signed On 03-31-2023 16:06:58 FISHING GEAR MECHANIC by Brian Gonzalez D.O.
[2023-03-31 12:20] VITALS: O2SAT 90
== END 2023-03-31 12:27 | disposition home or self-care (01) ==
PROVIDERS: Emergency Provider Nurse Practitioner Family; PCP Family Medicine Adolescent Medicine
DX: J20.8 Acute bronchitis due to other specified organisms (principal); E11.9 Type 2 diabetes mellitus without complications; E78.5 Hyperlipidemia, unspecified; I10 Essential (primary) hypertension; Z86.73 Personal history of transient ischemic attack (TIA), and cerebral infarction without residual deficits; Z87.891 Personal history of nicotine dependence; Z20.822 Contact with and (suspected) exposure to COVID-19
CPT/HCPCS: 71046; 87426; 87804; 93005; 94640; 99213; C9803; G0463

== ENCOUNTER 2023-04-06 08:16 | Emergency (ER) | payer OTHER, MEDICARE, SELFPAY ==
--- NOTE | 2023-04-06 08:18 | ED.GENADULT ---
HPI - General Adult General Chief complaint: Upper Respiratory Infection Stated complaint: Cough, Chest Pain Time Seen by Provider: 04/06/23 08:18 Source: patient Mode of arrival: ambulatory Limitations: no limitations History of Present Illness HPI narrative: 67-year-old male patient presents to the [facility] with complaints of chest pain, shortness of breath, coughing, overall fatigue, body aches and chills. Patient was seen in [facility] last week and was diagnosed with bronchitis and was given oral steroids, albuterol and Tessalon Perles. Patient had an x-ray done last Saturday which was clear an EKG was normal. Patient does see a physician practice consultant and had a full workup earlier in the year which was normal. Related Data Home Medications Medication Instructions Recorded Confirmed ascorbic acid (vitamin C) 1,000 mg 1 g PO HS 02/24/20 04/06/23 tablet coenzyme Q10 300 mg capsule (Co 300 mg PO HS 02/24/20 04/06/23 Q-10) cyanocobalamin (vitamin B-12) 1,000 mcg PO HS 02/24/20 04/06/23 1,000 mcg tablet,extended release (Vitamin B-12 ER) magnesium 500 mg tablet 500 mg PO HS 02/24/20 04/06/23 multivitamin 1 tablet PO DAILY 02/24/20 04/06/23 pyridoxine (vitamin B6) 100 mg 100 mg PO HS 02/24/20 04/06/23 tablet (Vitamin B-6) vitamin B complex 2 cap PO DAILY 02/24/20 04/06/23 cholecalciferol (vitamin D3) 25 25 mcg PO DAILY 09/12/21 04/06/23 mcg (1,000 unit) capsule diclofenac sodium 75 mg 75 mg PO BID 05/16/22 04/06/23 tablet,delayed release apple cider vinegar 600 mg capsule 600 mg PO DAILY 02/11/23 04/06/23 Allergies Allergy/AdvReac Type Severity Reaction Status Date / Time adenosine Allergy Severe Anaphylactic Verified 04/06/23 08:22 Shock oxycodone [From OxyContin] Allergy Severe Hallucinati Verified 04/06/23 08:22 ng Review of Systems Review of Systems: CONSTITUTIONAL: Denies fever, Positive body aches and chills, denies sweats. EYES: Denies visual changes, redness, or discharge. ENT: Denies rhinorrhea, congestion, sore throat, or otalgia. CARDIOVASCULAR: positive chest pain, denies palpitations, or edema. RESPIRATORY: positive cough with dyspnea. GASTROINTESTINAL: Denies abdominal pain, nausea, vomiting, or diarrhea. GENITOURINARY: Denies dysuria or hematuria. SKIN: Denies rash or itching. MUSCULOSKELETAL: Denies back pain, joint pain, or myalgia. NEUROLOGIC: Denies headache, numbness, positive weakness. PSYCHIATRIC: Denies anxiety or depression. [facility] Past Medical History Medical History Acute left-sided weakness Anxiety Biceps tendonitis BPH (benign prostatic hyperplasia) Chest pain COVID-19 Diabetes DM2 (diabetes mellitus, type 2) Encounter for diagnostic colonoscopy due to change in bowel habits Hearing loss Heart attack Hemoglobin A1c greater than 8.0 percent last charted A1c 01/08/2020 was 8.1 Hemoglobin A1c less than 7.0% 02/06/19 A1C = 6.[address] Brody office Hyperlipidemia Hypertension Lisfranc's sprain Muscle cramps at night Obesity Pain in left shoulder Pain in left wrist PFO (patent foramen ovale) SLAP tear of shoulder TIA (transient ischemic attack) Surgical History Surgical History H/O elbow surgery right and left arm H/O inguinal hernia repair left side History of facial surgery injury to face with multiple sutures History of hand surgery Right pinky finger 2010 Left ring finger 1962 per patient questionnaire S/P tonsillectomy and adenoidectomy Family History Family History Unknown Unknown family medical history patient was adopted Social History Social History Social History: the patient lives with a significant other. The patient has 3 daughters. He is . He works for [employer] He does not
[2023-04-06 08:38] VITALS: BP 115/50; PULSE 91; RESP 20; TEMP 37.6; O2SAT 89
--- NOTE | 2023-04-06 08:44 | ECG_ITS ---
Measurements Intervals [place] Rate: 77 P: 29 CT: 185 QRS: -26 QRSD: 100 T: -3 QT: 373 QTc: 424 Interpretive Statements SINUS RHYTHM BORDERLINE R WAVE PROGRESSION, ANTERIOR LEADS BORDERLINE T WAVE ABNORMALITY- INFERIOR LEADS BASELINE WANDER- II, III BORDERLINE ECG COMPARED TO ECG 03/31/2023 11:34:42 NO SIGNIFICANT CHANGES Electronically Signed On 04-06-2023 12:29:22 ACCOUNTANT CERTIFIED PUBLIC by Brian Gonzalez D.O.
== END 2023-04-06 08:48 | disposition short-term general hospital (02) ==
PROVIDERS: Emergency Provider Nurse Practitioner Family; PCP Family Medicine Adolescent Medicine
DX: R07.9 Chest pain, unspecified (principal); R06.00 Dyspnea, unspecified; Z87.891 Personal history of nicotine dependence; N40.0 Benign prostatic hyperplasia without lower urinary tract symptoms; E11.9 Type 2 diabetes mellitus without complications; I25.2 Old myocardial infarction; E78.5 Hyperlipidemia, unspecified; I10 Essential (primary) hypertension; E66.9 Obesity, unspecified; Z68.30 Body mass index [BMI] 30.0-30.9, adult; Z86.73 Personal history of transient ischemic attack (TIA), and cerebral infarction without residual deficits
CPT/HCPCS: 93005; 99215; G0463

== ENCOUNTER 2023-04-06 09:14 | Inpatient (IN) | payer OTHER, MEDICARE, SELFPAY ==
[2023-04-06] VITALS (8 sets, daily range): BP systolic 113–128; BP diastolic 51–92; PULSE 72–85; RESP 16–24; TEMP 37.3–38; O2SAT 88–96; BMI 30.9
--- NOTE | ~2023-04-06 | XR_ITS ---
EXAMINATION: XR chest 2V DATE: 04/06/2023 10:04 INDICATION: Shortness of breath and cough TECHNIQUE: Frontal and lateral views of the chest are obtained COMPARISON: 03/31/2023 FINDINGS: There are airspace opacities of the lingula and left lower lobe. No pleural effusion or pne umothorax. The cardiomediastinal silhouette is normal. There is mild thoracic spondylosis. IMPRESSION: 1. Airspace opacities of the lingula and left lower lobe, consistent with pneumonia. Reviewed, dictated and finalized at location F. ENTARY SCHOOL TUTOR IMPRESSION: 1. Airspace opacities of the lingula and left lower lobe, consistent with pneum onia.
--- NOTE | ~2023-04-06 | CT_ITS ---
EXAMINATION: CTA chest PE protocol DATE: 04/06/2023 11:02 INDICATION: Shortness of breath and cough TECHNIQUE: Computed tomography angiography (CTA) of the chest was performed with 200 mL Omnipaque-350 intravenous contrast timed to evaluate the pulmonary arteries. Coronal maximum intensity projection 3D-reconstructions were created by the technologist. The dose-length product (DLP) was 1478.54 mGy-cm . Automated exposure control and iterative reconstruction technique were employed. COMPARISON: 02/19/2023 FINDINGS: The pulmonary arteries are moderately well-opacified. No definite pulmonary embolism is becky ntified. There are airspace opacities of the lingula and lower lobes. No pleural effusion or pneumoth orax. The heart size is normal. There is mild bilateral hilar lymphadenopathy. There is mild thoracic spondylosis. IMPRESSION: 1. No definite pulmonary embolus identified. 2. Multifocal pneumonia of the lower lobes and lingula. 3. Mild bilateral hilar lymphadenopathy, likely reactive. Reviewed, dictated and finalized at location A. REPAIRER
--- NOTE | 2023-04-06 09:16 | ECG_ITS ---
Measurements Intervals [place] Rate: 78 P: 49 CO: 184 QRS: -10 QRSD: 109 T: 24 QT: 372 QTc: 424 Interpretive Statements SINUS RHYTHM BASELINE WANDER- III, AVL, AVF NORMAL ECG COMPARED TO ECG 04/06/2023 08:39:21 NO SIGNIFICANT CHANGES Electronically Signed On 04-06-2023 12:28:34 MANAGER DEVELOPMENTAL by Brian Gonzalez D.O.
--- NOTE | 2023-04-06 09:16 | ED.CHESTPAIN ---
HPI - Chest Pain General Chief Complaint: Chest Pain <Sergio Lopez APRN - Last Filed: 04/06/23 14:13> Stated Complaint: CP <Sergio Lopez APRN - Last Filed: 04/06/23 14:13> Time Seen by Provider: 04/06/23 09:15 <Sergio Lopez APRN - Last Filed: 04/06/23 14:13> Source: patient <Sergio Lopez APRN - Last Filed: 04/06/23 14:13> Mode of arrival: ambulatory <Sergio Lopez APRN - Last Filed: 04/06/23 14:13> Limitations: no limitations <Sergio Lopez APRN - Last Filed: 04/06/23 14:13> History of Present Illness HPI narrative: Anthony is a 67-year-old male patient presenting to the ER today with complaints of chest pain, shortness of breath, and cough. Reports that this has been ongoing since November when he got COVID. He went to the [facility] this morning and his SpO2 was 80% at that time. They placed him on oxygen and called the ambulance to bring him to the hospital. Chest pain is in the center of his chest rating the pain 5-7/10 depending on coughing. Pain is a sharp stabbing pain in the center of his chest. <Sergio Lopez APRN - Last Filed: 04/06/23 14:13> Related Data Home Medications: Home Medications Medication Instructions Recorded Confirmed ascorbic acid (vitamin C) 1,000 mg 1 g PO HS 02/24/20 04/06/23 tablet coenzyme Q10 300 mg capsule (Co 300 mg PO HS 02/24/20 04/06/23 Q-10) cyanocobalamin (vitamin B-12) 1,000 mcg PO HS 02/24/20 04/06/23 1,000 mcg tablet,extended release (Vitamin B-12 ER) magnesium 500 mg tablet 500 mg PO HS 02/24/20 04/06/23 multivitamin 1 tablet PO DAILY 02/24/20 04/06/23 pyridoxine (vitamin B6) 100 mg 100 mg PO HS 02/24/20 04/06/23 tablet (Vitamin B-6) vitamin B complex 2 cap PO DAILY 02/24/20 04/06/23 cholecalciferol (vitamin D3) 25 25 mcg PO DAILY 09/12/21 04/06/23 mcg (1,000 unit) capsule diclofenac sodium 75 mg 75 mg PO BID 05/16/22 04/06/23 tablet,delayed release apple cider vinegar 600 mg capsule 600 mg PO DAILY 02/11/23 04/06/23 <Sergio Lopez APRN - Last Filed: 04/06/23 14:13> Allergies/Adverse Reactions: Allergies Allergy/AdvReac Type Severity Reaction Status Date / Time adenosine Allergy Severe Anaphylactic Verified 04/06/23 08:22 Shock oxycodone [From OxyContin] Allergy Severe Hallucinati Verified 04/06/23 08:22 ng <Sergio Lopez APRN - Last Filed: 04/06/23 14:13> Review of Systems Review of Systems: Pertinent positives per HPI. Patient denies any fever, chills, rash, headache, visual changes, dizziness, runny nose, sore throat,palpitations, nausea, vomiting, diarrhea, constipation, abdominal pain, or any urinary issues. <Sergio Lopez APRN - Last Filed: 04/06/23 14:13> [facility] Past Medical History Medical History: Medical History Acute left-sided weakness Anxiety Biceps tendonitis BPH (benign prostatic hyperplasia) Chest pain COVID-19 Diabetes DM2 (diabetes mellitus, type 2) Encounter for diagnostic colonoscopy due to change in bowel habits Hearing loss Heart attack Hemoglobin A1c greater than 8.0 percent last charted A1c 01/08/2020 was 8.1 Hemoglobin A1c less than 7.0% 02/06/19 A1C = 6.[address] Brody office Hyperlipidemia Hypertension Lisfranc's sprain Muscle cramps at night Obesity Pain in left shoulder Pain in left wrist PFO (patent foramen ovale) SLAP tear of shoulder TIA (transient ischemic attack) <Sergio Lopez APRN - Last Filed: 04/06/23 14:13> Surgical History Surgical History: Surgical History H/O elbow surgery right and left arm H/O inguinal hernia repair left side History of facial surgery injury to face with multiple sutures History of hand surgery Right pinky finger 2010 Left ring finger 1962 per patient questionnaire S/P tonsillectomy and
[2023-04-06] MEDS: ASPIRIN 81 MG CHEWABLE TABLET 324 MG PO (09:34)
[2023-04-06] MEDS: IPRATROPIUM 0.5 MG/ALBUTEROL SULFATE 2.5 MG AMPUL.NEB 3 ML INHALATION (09:41)
[2023-04-06 09:43] LABS: Basophils Absolute Auto 0.1 K/mm3 (0.0-0.1); Basophils Percent Auto 0.4 % (0.2-1.2); Eosinophils Percent Auto 0.2 % (0-4.4); Hematocrit 37.8 % (42.0-52.0); Hemoglobin 12.5 g/dL (14.0-18.0); Immature Granulocyte Absolute 0.06 K/mm3 (0.00-0.031); Immature Granulocyte Percent A 0.5 % (0-0.5); Mean Corpuscular HGB Conc 33.1 g/dl (32-36); Mean Corpuscular Hemoglobin 31.6 pg (26-34); Mean Corpuscular Volume 95.5 fl (80-100); Mean Platelet Volume 9.4 fl (7.4-10.4); Monocytes Absolute Auto 0.9 K/mm3 (0.1-0.6); Monocytes Percent Auto 7.5 % (2.6-8.5); Neutrophils Absolute Auto 8.7 K/mm3 (1.3-6.7); Neutrophils Percent Auto 76.4 % (45.5-73.1); Platelet Count Result 202 k/mm3 (150-375); Red Blood Count 3.96 M/mm3 (4.6-6.20); Red Cell Distribution Width 12.3 % (11.5-14.5); White Blood Count 11.4 K/mm3 (4.5-10.0)
[2023-04-06 09:54] LABS: Partial Thromboplastin Time 26.3 SECONDS (22.3-36.8); Prothrombin Time 13.7 Seconds (11.1-14.7)
[2023-04-06 09:59] LABS: Alanine Aminotransferase 36 U/L (6-50); Alkaline Phosphatase 64 U/L (38-126); Anion Gap 10 mmol/L (8-16); Aspartate Amino Transferase 39 U/L (17-59); Bilirubin,Total 1.1 mg/dL (0.2-1.3); Blood Urea Nitrogen 16 mg/dL (9-20); Calcium 8.7 mg/dL (8.4-10.2); Carbon Dioxide 25 mmol/L (22-30); Chloride 102 mmol/L (98-107); D Dimer 1.59 ug/mL (<0.48); Estimated CRCL calculation 87 ml/min; Estimated Glomerular Filt Rate > 60; Glucose 115 mg/dL (65-110); Potassium 3.7 mmol/L (3.4-5.0); Sodium 137 mmol/L (137-145)
[2023-04-06 10:09] LABS: NT Pro B Type Natriuretic Pept 352 pg/mL (19.9-100); Troponin I < 0.012 ng/mL (0.000-0.034)
--- NOTE | 2023-04-06 12:16 | ECG_ITS ---
Measurements Intervals [place] Rate: 73 P: 24 TX: 187 QRS: -12 QRSD: 117 T: 12 QT: 385 QTc: 427 Interpretive Statements SINUS RHYTHM DELAYED PRECORDIAL R/S TRANSITION BORDERLINE T WAVE ABNORMALITY- INFERIOR LEADS BASELINE WANDER- V6 COMPARED TO ECG 04/06/2023 09:17:43 NO SIGNIFICANT CHANGES Electronically Signed On 04-06-2023 12:30:10 MED CARE MANAGER by Brian Gonzalez D.O.
--- NOTE | 2023-04-06 12:44 | PC.NURSE ---
Lunch tray ordered for patient
[2023-04-06] MEDS: AZITHROMYCIN 500 MG/NS 250 ML 500 MG/250 ML BAG 250 MG IVPB (12:49)
[2023-04-06 12:51] LABS: Troponin I < 0.012 ng/mL (0.000-0.034)
--- NOTE | 2023-04-06 12:51 | PC.NURSE ---
3L NC placed on patient, instructed to breathe in through nose. Patient keeps dozing off and breathing through mouth. Rn woke patient up reminding to breathe through nose. O2 sats fluctuating between 89-92%. EDP made aware.
[2023-04-06 13:30] LABS: Base Excess ABG 0.4 mEq/l (+/-2.0); Fractional Inspired Oxygen 44 %; HCO3 ABG 23.2 mEq/l (22.0-26.0); Oxygen Content ABG 17.6 %vol (16.0-22.0); Oxygen Saturation ABG 95.1 % (95.0-100.0); Oxyhemoglobin 93.4 % THb (90.0-100.0); PCO2 ABG 32.2 mmHg (35.0-45.0); PO2 FiO2 Ratio Arterial Blood 1.57 %; Total Hemoglobin 13.4 g/dL (12.0-18.0); pH ABG 7.476 (7.350-7.450)
[2023-04-06 13:31] LABS: Device HIGH FLOW NASAL CANN; Modified Allen's Test Pass; Site Drawn LEFT RADIAL
--- NOTE | 2023-04-06 14:12 | ADMGEN ---
This patient, Anthony Walton, was admitted to Medical Room 340-01. Patient/family oriented to hospital policies and general routines including ID bracelet, bed and alarms, visiting hours, pain management, procedures, bathroom and other care routines, personal items, smoking policy, room service/diet, and visiting hours. Information on how to activate the Rapid Response Team has been discussed. Patient/Family are encouraged to report perceived risks to care and to ask questions if they do not understand what they are told or what they should do.
[2023-04-06] MEDS: SODIUM CHLORIDE 0.9% IV 1,000 ML 125 ML IV CONT (14:30)
--- NOTE | 2023-04-06 14:45 | PM.IMHP ---
H&P: HPI History of Present Illness Date/Time: 04/06/23 17:00 Chief Complaint: Cough, chest pain, shortness of breath. Narrative: This is a 67-year-old male with insulin-dependent type 2 diabetes mellitus, hypertension, hyperlipidemia, and benign prostatic hyperplasia who presented to the emergency department from [facility] for evaluation of cough, chest pain, and shortness of breath. The patient provides the following history. He had COVID in November and he was told a month or so ago that he probably has long COVID. He has had intermittent and ongoing issues with respiratory symptoms. Towards the end of January he once again developed cough and shortness of breath and was treated with antibiotics for pneumonia. He felt better for couple of weeks before his symptoms returned. More recently he was seen at a local [facility] where he was diagnosed with bronchitis and was prescribed an inhaler, steroids, and Tessalon Perles. Those seem to have helped his symptoms briefly all though the last several days he has once again started to spike a fever within unrelenting cough, body aches, and generalized malaise. He is having difficulty sleeping due to the cough. Fever has been as high as 101? F. He presented to [facility] this morning with pleuritic pain and mid chest associated with ongoing cough and shortness breath. He denies exertional chest pain, nausea, vomiting, and diarrhea. SpO2 has been as low as 88% and he is currently on 6 L high-flow. He has a low-grade fever 100.4? F. labs were significant for a WBC count of 11.4, D-dimer 1.59, proBNP 352, troponin less than 0.012. Chest CTA was negative for pulmonary embolus but did show multifocal pneumonia of the lower lobes and lingula. He was given a dose of azithromycin and ceftriaxone and he is being admitted in this setting for further treatment. Review of Systems Review of Systems: Twelve systems were reviewed and are negative except for as per HPI. [facility] Past Medical History Medical History (Updated 04/06/23 @ 14:55 by Rola Frias PA-C) Anxiety Benign prostatic hyperplasia COVID-19 Duodenal ulcer Hearing loss Hyperlipidemia Hypertension Insulin dependent type 2 diabetes mellitus Obesity Patent foramen ovale Shingles Transient ischemic attack Surgical History Surgical History (Updated 04/06/23 @ 14:55 by Rola Frias PA-C) History of elbow surgery History of facial surgery injury to face with multiple sutures History of hand surgery Right pinky finger 2011 Left ring finger 1963 per patient questionnaire History of inguinal hernia repair History of tonsillectomy and adenoidectomy Family History Family History Unknown Unknown family medical history patient was adopted Social History Social History (Updated 04/06/23 @ 14:56 by Rola Frias PA-C) Social History: Surrogate medical decision maker: Genie Walton, spouse. Code status: Full code. Smoking packs per day: 1.5 Smoking cigarettes per day: 30.0 Years smoked: 13 Smoking pack-years: 19.50 Smoking status: Former smoker Tobacco type: cigarettes Second hand tobacco smoke exposure: Yes Smoking end date: 03/25/85 Additional smoking assessment comments: Quit Smoking 1985. Alcohol intake: former Substance use: never Do You Feel Safe in your Home?: Yes Lack of Transportation: No Lack of Food: Never True Current Housing: I Have Housing Concerned About Future Housing: No Difficulty Paying Gas/Electric Bills: No Difficulty Paying for Meds: No Currently Unemployed: No Education: Associate Degree Difficulty w/ Childcare or Family Care: No Living arrangements: with family Additional living arrangements comments: Lives with spouse in [place]. He has 3 children. Occupation/Education: occupation Additional occupation/education comments: [employer] Spiritual care concerns: No Agree t
[2023-04-06] MEDS: VANCOMYCIN 1,250 MG/NS 250 ML 1,250 MG/250 ML BAG 166.67 MG IVPB ×2 (16:38→18:43)
[2023-04-06 17:32] LABS: Troponin I < 0.012 ng/mL (0.000-0.034)
[2023-04-06 17:39] LABS: Glucose Point of Care 85 mg/dl (65-105)
[2023-04-06 18:33] LABS: Influenza A QL RT-PCR Negative (Negative); Influenza B QL RT-PCR Negative (Negative); SARS-CoV-2 RNA PCR Negative (Negative)
[2023-04-06 19:09] LABS: MRSA (PCR) NOT DETECTED (NOT DETECTE)
[2023-04-06 20:48] LABS: Glucose Point of Care 124 mg/dl (65-105)
[2023-04-06] MEDS: CYANOCOBALAMIN 1,000 MCG TABLET 1000 MCG PO (21:30)
[2023-04-06] MEDS: ASPIRIN 81 MG ENTERIC TABLET BY MOUTH (21:30)
[2023-04-06] MEDS: ASCORBIC ACID 500 MG TABLET 1000 MG PO (21:30)
[2023-04-06] MEDS: VITAMIN B COMPLEX CAPSULE 2 CAP PO (21:30)
[2023-04-06] MEDS: guaiFENesin 12 HR 600 MG TABCR PO (21:30)
[2023-04-06] MEDS: MULTIVITAMINS THERAPEUTIC TAB (*BKC) 1 TABLET PO (21:30)
[2023-04-06] MEDS: TAMSULOSIN HCL 0.4 MG CAPSULE 0.8 MG PO (21:30)
[2023-04-06] MEDS: SIMVASTATIN 20 MG TABLET 40 MG PO (21:30)
[2023-04-06] MEDS: CHOLECALCIFEROL 1,000 UNITS TABLET 1000 UNITS PO (21:30)
[2023-04-06] MEDS: PYRIDOXINE HCL 50 MG TABLET 100 MG PO (21:31)
[2023-04-06] MEDS: lisinopriL 20 MG TABLET 40 MG PO (21:31)
[2023-04-06] MEDS: MAGNESIUM 27 MG TABLET (500 MG MAG GLUCONATE) PO (21:31)
--- NOTE | 2023-04-06 23:51 | PCRCNOTE ---
Window of time for administration has passed. See next scheduled administration.
[2023-04-07] VITALS (11 sets, daily range): BP systolic 92–126; BP diastolic 41–65; PULSE 63–88; RESP 17–18; TEMP 36.4–37.3; O2SAT 76–100
[2023-04-07] MEDS: VANCOMYCIN 1,500 MG/NS 500 ML 1,500 MG/500 ML BAG 250 MG IVPB (03:58)
--- NOTE | 2023-04-07 05:06 | PCRCNOTE ---
RT woke up patient at 0200 to administer updraft treatment, patient refused, stating he will just start it at 0800.
[2023-04-07 05:46] LABS: Hemoglobin 12.4 g/dL (14.0-18.0); Mean Corpuscular HGB Conc 32.6 g/dl (32-36); Mean Corpuscular Hemoglobin 31.9 pg (26-34); Mean Corpuscular Volume 97.7 fl (80-100); Mean Platelet Volume 9.3 fl (7.4-10.4); Platelet Count Result 176 k/mm3 (150-375); Red Blood Count 3.89 M/mm3 (4.6-6.20); Red Cell Distribution Width 12.3 % (11.5-14.5); White Blood Count 9.7 K/mm3 (4.5-10.0)
[2023-04-07 05:58] LABS: Anion Gap 7 mmol/L (8-16); Blood Urea Nitrogen 16 mg/dL (9-20); Calcium 8.4 mg/dL (8.4-10.2); Carbon Dioxide 26 mmol/L (22-30); Chloride 104 mmol/L (98-107); Estimated CRCL calculation 87 ml/min; Estimated Glomerular Filt Rate > 60; Glucose 78 mg/dL (65-110); Magnesium 2.3 mg/dL (1.6-2.3); Potassium 3.7 mmol/L (3.4-5.0); Sodium 137 mmol/L (137-145)
[2023-04-07] MEDS: IPRATROPIUM 0.5 MG/ALBUTEROL SULFATE 2.5 MG AMPUL.NEB 3 ML INHALATION ×3 (07:08→19:10)
[2023-04-07] MEDS: DICLOFENAC SOD 75 MG TABLET.EC PO ×2 (08:21→17:06)
[2023-04-07] MEDS: ENOXAPARIN 40 MG/0.4 ML SYRINGE SUB-Q (08:21)
[2023-04-07] MEDS: guaiFENesin 12 HR 600 MG TABCR PO ×2 (08:21→20:19)
[2023-04-07 08:28] LABS: CRP 6.7 mg/dL (<1.0)
[2023-04-07] MEDS: INSULIN GLARGINE (*BKC) 100 UNITS/ML 20 UNITS SUB-Q (08:29)
[2023-04-07 08:33] LABS: Glucose Point of Care 112 mg/dl (65-105)
[2023-04-07] MEDS: PANTOPRAZOLE 40 MG TABLET PO (08:36)
[2023-04-07 08:43] LABS: Procalcitonin 0.1 ng/mL
[2023-04-07] MEDS: AZITHROMYCIN 500 MG/NS 250 ML 500 MG/250 ML BAG 250 MG IVPB (08:53)
[2023-04-07 10:53] LABS: Influenza A QL RT-PCR Negative (Negative); Influenza B QL RT-PCR Negative (Negative); RSV RNA, RT-PCR Positive (Negative); SARS-CoV-2 RNA PCR Negative (Negative)
[2023-04-07 11:34] LABS: MRSA (PCR) NOT DETECTED (NOT DETECTE)
[2023-04-07 12:02] LABS: Glucose Point of Care 129 mg/dl (65-105)
--- NOTE | 2023-04-07 13:00 | PM.IMPN ---
Progress Note: A&P Assessment and Plan (1) RSV (respiratory syncytial virus pneumonia): Code(s): J12.1 - Respiratory syncytial virus pneumonia Status: Acute (2) Insulin dependent type 2 diabetes mellitus: Code(s): E11.9 - Type 2 diabetes mellitus without complications; Z79.4 - senior care (current) use of insulin Status: Acute (3) Acute respiratory failure with hypoxia: Code(s): J96.01 - Acute respiratory failure with hypoxia Status: Acute (4) Multifocal pneumonia: Code(s): J18.9 - Pneumonia, unspecified organism Status: Acute (5) Hypertension: Qualifiers: Hypertension type: primary hypertension Qualified Code(s): I10 - Essential (primary) hypertension Code(s): I10 - Essential (primary) hypertension Status: Chronic Plan Acute respiratory failure with hypoxia -Secondary to Multifocal PNA/RSV+ -continue to treat for possible gram -/+ bacterial PNA vs viral RSV PNA -Pulmonary consulted for any further recommendations -DuoNebs -Chest x-ray/CT BLL consolidations/Multifocal PNA bacterial vs virus -incentive spirometry while awake. -sputum culture pending -influenza/COVID negative/RSV positive -respiratory panel pending -antibiotic therapy/MRSA nares negative de-escalated d/c vanc -supplemental oxygen therapy to maintain oxygen 92%/5L HF -monitor for signs of in sepsis -blood cultures x2 NGTD -CMP/CBC daily Diabetes -Accu-Cheks a.c. HS -sliding scale insulin -resume patient's home long-acting -Diabetic diet -consult to dietitian -encourage lifestyle modifications and weight loss -Optimize Jose inhibitors and statins. -Watch for hypoglycemia/hypoglycemic protocol ordered Obesity -encourage increased on physical activity and lifestyle modifications -Stress monitoring and eating disorder evaluation. -encourage outpatient weight loss clinic -BMI . -Diet exercise counseling done. -consult to dietitian HTN -stable -Resumed home JOSE BPH -resumed Flomax -monitor for retention Code status: Full code per patient DVT prophylaxis: Lovenox Stress ulcer prophylaxis: Protonix 40 daily PT/OT notes: Ambulatory Disposition: Admission for multifocal PNA/RSV + with acute respiratory failure with hypoxia. Will continue to wean oxygen requirements and treat for bacterial PNA. Pulm consulted, patient is ambulatory and will likely return to home when medically stable. -Patient's previous records reviewed on admission -ER notes reviewed in detail on admission -discussed all findings and current treatment plan with patient/Family/POA -Consultations reviewed for recommendations -Patient's disposition for safe discharge discussed with case management manager Dictation performed by [employer] direct speech recognition software, therefore erp manager variants and typographical errors may occur. Time Spent With Patient Time with patient: 25 - 35 minutes Subjective Date/time seen: 04/07/23 13:00 Interval history: Chief Complaint: Cough, chest pain, shortness of breath. Narrative: This is a 67-year-old male with insulin-dependent type 2 diabetes mellitus, hypertension, hyperlipidemia, and benign prostatic hyperplasia who presented to the emergency department from [facility] for evaluation of cough, chest pain, and shortness of breath. The patient provides the following history. He had COVID in November and he was told a month or so ago that he probably has long COVID. He has had intermittent and ongoing issues with respiratory symptoms. Towards the end of January he once again developed cough and shortness of breath and was treated with antibiotics for pneumonia. He felt better for couple of weeks before his symptoms returned. More recently he was seen at a local [facility] where he was diagnosed with bronchitis and was prescribed an inhaler, steroids, and Tessalon Perles. Those seem to have helped his symptoms briefly a
[2023-04-07] MEDS: SODIUM CHLORIDE 0.9% IV 1,000 ML 100 ML IV CONT (14:49)
[2023-04-07 16:53] LABS: Glucose Point of Care 129 mg/dl (65-105)
[2023-04-07] MEDS: SIMVASTATIN 20 MG TABLET 40 MG PO (20:19)
[2023-04-07] MEDS: ASCORBIC ACID 500 MG TABLET 1000 MG PO (20:19)
[2023-04-07] MEDS: MULTIVITAMINS THERAPEUTIC TAB (*BKC) 1 TABLET PO (20:19)
[2023-04-07] MEDS: PYRIDOXINE HCL 50 MG TABLET 100 MG PO (20:19)
[2023-04-07] MEDS: TAMSULOSIN HCL 0.4 MG CAPSULE 0.8 MG PO (20:20)
[2023-04-07] MEDS: VITAMIN B COMPLEX CAPSULE 2 CAP PO (20:20)
[2023-04-07] MEDS: CYANOCOBALAMIN 1,000 MCG TABLET 1000 MCG PO (20:20)
[2023-04-07] MEDS: MAGNESIUM 27 MG TABLET (500 MG MAG GLUCONATE) PO (20:20)
[2023-04-07] MEDS: ASPIRIN 81 MG ENTERIC TABLET BY MOUTH (20:20)
[2023-04-07] MEDS: CHOLECALCIFEROL 1,000 UNITS TABLET 1000 UNITS PO (20:20)
[2023-04-07 20:35] LABS: Glucose Point of Care 132 mg/dl (65-105)
[2023-04-08] VITALS (13 sets, daily range): BP systolic 119–131; BP diastolic 59–68; PULSE 64–86; RESP 18–20; TEMP 36.6–36.7; O2SAT 93–100
[2023-04-08] MEDS: SODIUM CHLORIDE 0.9% IV 1,000 ML 100 ML IV CONT ×2 (01:15→14:56)
[2023-04-08 05:50] LABS: Basophils Percent Auto 0.3 % (0.2-1.2); Eosinophils Absolute Auto 0.2 K/mm3 (0-0.3); Eosinophils Percent Auto 2.3 % (0-4.4); Hematocrit 35.4 % (42.0-52.0); Hemoglobin 11.6 g/dL (14.0-18.0); Immature Granulocyte Percent A 1.1 % (0-0.5); Lymphocytes Absolute Auto 1.38 K/mm3 (0.9-3.2); Lymphocytes Percent Auto 14.6 % (18.3-44.2); Mean Corpuscular HGB Conc 32.8 g/dl (32-36); Mean Corpuscular Hemoglobin 32.2 pg (26-34); Mean Corpuscular Volume 98.3 fl (80-100); Mean Platelet Volume 9.4 fl (7.4-10.4); Monocytes Absolute Auto 0.7 K/mm3 (0.1-0.6); Monocytes Percent Auto 7.7 % (2.6-8.5); Platelet Count Result 180 k/mm3 (150-375); White Blood Count 9.4 K/mm3 (4.5-10.0)
[2023-04-08 06:11] LABS: Chloride 106 mmol/L (98-107); Potassium 3.6 mmol/L (3.4-5.0); Sodium 138 mmol/L (137-145)
[2023-04-08 06:18] LABS: Alanine Aminotransferase 30 U/L (6-50); Albumin Level 3.5 g/dL (3.5-5.1); Alkaline Phosphatase 63 U/L (38-126); Anion Gap 8 mmol/L (8-16); Aspartate Amino Transferase 35 U/L (17-59); Bilirubin,Total 0.7 mg/dL (0.2-1.3); Blood Urea Nitrogen 17 mg/dL (9-20); Calcium 8.3 mg/dL (8.4-10.2); Carbon Dioxide 24 mmol/L (22-30); Estimated CRCL calculation 87 ml/min; Estimated Glomerular Filt Rate > 60; Glucose 111 mg/dL (65-110)
[2023-04-08] MEDS: IPRATROPIUM 0.5 MG/ALBUTEROL SULFATE 2.5 MG AMPUL.NEB 3 ML INHALATION ×3 (08:05→20:07)
--- NOTE | 2023-04-08 08:47 | PM.CNPUL ---
Assessment and Plan Assessment and plan (1) RSV (respiratory syncytial virus pneumonia): Code(s): J12.1 - Respiratory syncytial virus pneumonia Status: Acute Assessment and Plan: A 67-year-old male patient presented with symptoms of cough, dyspnea, general malaise, and a low-grade fever. Diagnostic evaluations, including a chest CT and PCR testing, revealed bilateral infiltrates indicative of pneumonia, likely due to Respiratory Syncytial Virus. The patient has been receiving ceftriaxone and azithromycin for potential co-infection, a common complication in viral pneumonias, typically associated with Streptococcus pneumoniae or Staphylococcal infection. Urine antigen tests for Streptococcus pneumoniae and Legionella are pending, while the MRSA screen returned negative. Blood culture showed Gram-positive cocci in one bottle, which could potentially be a skin contaminant. The final report is awaited. WBC is back into the normal range. The management plan includes continuation of the current antibiotic regimen while awaiting the urine antigen results for Streptococcus pneumoniae. Short-acting bronchodilators will be continued, DVT prophylaxis as ordered and nebulized Pulmicort has been added to the regimen, to be administered twice daily. The patient's progress will be closely monitored. (2) Insulin dependent type 2 diabetes mellitus: Code(s): E11.9 - Type 2 diabetes mellitus without complications; Z79.4 - joint terminal attack controller (current) use of insulin Status: Acute (3) Multifocal pneumonia: Code(s): J18.9 - Pneumonia, unspecified organism Status: Acute (4) Acute respiratory failure with hypoxia: Code(s): J96.01 - Acute respiratory failure with hypoxia Status: Acute (5) Dyspnea: Code(s): R06.00 - Dyspnea, unspecified Status: Acute (6) Cough: Code(s): R05.9 - Cough, unspecified Status: Acute History of Present Illness History of Present Illness Consult date: 04/08/23 Chief complaint: Pneumonia,Hypoxia Narrative: A 67-year-old male patient, with a medical history of insulin-dependent type 2 diabetes mellitus, hypertension, hyperlipidemia, and benign prostatic hyperplasia, has had cough, wheezing and shortness of breath for weeks. The patient was in his usual state of health until last November when he was diagnosed with COVID-19 infection; since then he has had intermittent respiratory symptoms such as cough and shortness of breath. In late January, he developed a cough and dyspnea again, for which he was treated with antibiotics for pneumonia. His symptoms improved for a few weeks before recurring. Recently, he was diagnosed with bronchitis at a local [facility] and was prescribed an inhaler, steroids, and Tessalon Perles, which provided temporary relief. However, he had persistent symptoms, including fever, cough, and general malaise, for several days prior to this admission. He has recorded a maximum temperature of 101? F. On the day of admission, he presented to [facility] with pleuritic and mid-chest pain, along with ongoing cough and dyspnea. He denied experiencing exertional chest pain, nausea, vomiting, or diarrhea. His SpO2 dropped to as low as 88% He had a low-grade fever of 100.4? F. Laboratory findings were significant for a WBC count of 11.4, D-dimer 1.59, proBNP 352, and troponin less than 0.012. A Chest CTA revealed no pulmonary embolus but did show multifocal pneumonia in the lower lobes and lingula. Tested positive for RSV viral infection. He has been on azithromycin and ceftriaxone. He continues to have a mostly dry cough malaise and shortness of breath. He remains on supplemental oxygen via nasal cannula. MRSA screen negative. WBC back into the normal range from a mild elevation on the day of admission. Patient smoked 1-1.5 packs per day for couple of years. He quit many years ago. He has no history of asthma or prior lung disease. Blood culture preliminary
[2023-04-08] MEDS: guaiFENesin 12 HR 600 MG TABCR PO ×2 (09:12→20:32)
[2023-04-08] MEDS: PANTOPRAZOLE 40 MG TABLET PO (09:12)
[2023-04-08] MEDS: INSULIN GLARGINE (*BKC) 100 UNITS/ML 20 UNITS SUB-Q (09:12)
[2023-04-08] MEDS: DICLOFENAC SOD 75 MG TABLET.EC PO ×2 (09:12→16:12)
[2023-04-08] MEDS: AZITHROMYCIN 500 MG/NS 250 ML 500 MG/250 ML BAG 250 MG IVPB (09:12)
[2023-04-08] MEDS: ENOXAPARIN 40 MG/0.4 ML SYRINGE SUB-Q (09:12)
--- NOTE | 2023-04-08 11:29 | PM.IMPN ---
Progress Note: A&P Assessment and Plan (1) RSV (respiratory syncytial virus pneumonia): Code(s): J12.1 - Respiratory syncytial virus pneumonia Status: Acute (2) Insulin dependent type 2 diabetes mellitus: Code(s): E11.9 - Type 2 diabetes mellitus without complications; Z79.4 - alf (current) use of insulin Status: Acute (3) Acute respiratory failure with hypoxia: Code(s): J96.01 - Acute respiratory failure with hypoxia Status: Acute (4) Multifocal pneumonia: Code(s): J18.9 - Pneumonia, unspecified organism Status: Acute (5) Hypertension: Qualifiers: Hypertension type: primary hypertension Qualified Code(s): I10 - Essential (primary) hypertension Code(s): I10 - Essential (primary) hypertension Status: Chronic Plan Acute respiratory failure with hypoxia -Secondary to Multifocal PNA/RSV+ -continue to treat for possible gram -/+ bacterial PNA vs viral RSV PNA -Pulmonary consulted added Pulmicort BID -DuoNebs -Chest x-ray/CT BLL consolidations/Multifocal PNA bacterial vs virus vs co-infection -incentive spirometry while awake. -sputum culture pending -influenza/COVID negative/RSV positive -respiratory panel pending -antibiotic therapy/MRSA nares negative de-escalated d/c vanc -supplemental oxygen therapy to maintain oxygen 92%/5L HF was de-escaleted to 2L -monitor for signs of in sepsis -blood cultures x2 aerobic bottle +likely contamination -CMP/CBC daily -antipyretics Diabetes -Accu-Cheks a.c. HS -sliding scale insulin -resume patient's home long-acting -Diabetic diet -consult to dietitian -encourage lifestyle modifications and weight loss -Optimize Jose inhibitors and statins. -Watch for hypoglycemia/hypoglycemic protocol ordered Obesity -encourage increased on physical activity and lifestyle modifications -Stress monitoring and eating disorder evaluation. -encourage outpatient weight loss clinic -BMI . -Diet exercise counseling done. -consult to dietitian HTN -stable -Resumed home JOSE BPH -resumed Flomax -monitor for retention Code status: Full code per patient DVT prophylaxis: Lovenox Stress ulcer prophylaxis: Protonix 40 daily PT/OT notes: Ambulatory Disposition: Admission for multifocal PNA/RSV + with acute respiratory failure with hypoxia. Will continue to wean oxygen requirements and treat for bacterial PNA. Pulm consulted, patient is ambulatory and will likely return to home when medically stable. -Patient's previous records reviewed on admission -ER notes reviewed in detail on admission -discussed all findings and current treatment plan with patient/Family/POA -Consultations reviewed for recommendations -Patient's disposition for safe discharge discussed with outpatient case manager Dictation performed by [employer] direct speech recognition software, therefore anthropology lecturer variants and typographical errors may occur. Time Spent With Patient Time with patient: 15 - 25 minutes Subjective Date/time seen: 04/08/23 11:29 Interval history: Chief Complaint: Cough, chest pain, shortness of breath. Narrative: This is a 67-year-old male with insulin-dependent type 2 diabetes mellitus, hypertension, hyperlipidemia, and benign prostatic hyperplasia who presented to the emergency department from [facility] for evaluation of cough, chest pain, and shortness of breath. The patient provides the following history. He had COVID in November and he was told a month or so ago that he probably has long COVID. He has had intermittent and ongoing issues with respiratory symptoms. Towards the end of January he once again developed cough and shortness of breath and was treated with antibiotics for pneumonia. He felt better for couple of weeks before his symptoms returned. More recently he was seen at a local [facility] where he was diagnosed with bronchitis and was prescribed an inhaler, ster
[2023-04-08 12:16] LABS: Glucose Point of Care 116 mg/dl (65-105)
[2023-04-08 12:19] LABS: Glucose Point of Care 112 mg/dl (65-105)
[2023-04-08 17:43] LABS: Glucose Point of Care 117 mg/dl (65-105)
[2023-04-08 19:31] LABS: Glucose Point of Care 126 mg/dl (65-105)
[2023-04-08] MEDS: BUDESONIDE RESPULE NEB 0.5 MG/2 ML AMP INHALATION (20:06)
[2023-04-08] MEDS: MAGNESIUM 27 MG TABLET (500 MG MAG GLUCONATE) PO (20:32)
[2023-04-08] MEDS: ASPIRIN 81 MG ENTERIC TABLET BY MOUTH (20:32)
[2023-04-08] MEDS: VITAMIN B COMPLEX CAPSULE 2 CAP PO (20:32)
[2023-04-08] MEDS: CHOLECALCIFEROL 1,000 UNITS TABLET 1000 UNITS PO (20:32)
[2023-04-08] MEDS: CYANOCOBALAMIN 1,000 MCG TABLET 1000 MCG PO (20:32)
[2023-04-08] MEDS: MULTIVITAMINS THERAPEUTIC TAB (*BKC) 1 TABLET PO (20:32)
[2023-04-08] MEDS: SIMVASTATIN 20 MG TABLET 40 MG PO (20:32)
[2023-04-08] MEDS: ASCORBIC ACID 500 MG TABLET 1000 MG PO (20:32)
[2023-04-08] MEDS: TAMSULOSIN HCL 0.4 MG CAPSULE 0.8 MG PO (20:32)
[2023-04-08] MEDS: PYRIDOXINE HCL 50 MG TABLET 100 MG PO (20:33)
[2023-04-08] MEDS: lisinopriL 20 MG TABLET 40 MG PO (20:33)
[2023-04-09] VITALS (13 sets, daily range): BP systolic 121–135; BP diastolic 54–79; PULSE 69–87; RESP 16–20; TEMP 36.6–36.9; O2SAT 94–97
[2023-04-09] MEDS: SODIUM CHLORIDE 0.9% IV 1,000 ML 100 ML IV CONT ×2 (02:00→13:40)
[2023-04-09] MEDS: IPRATROPIUM 0.5 MG/ALBUTEROL SULFATE 2.5 MG AMPUL.NEB 3 ML INHALATION ×4 (02:06→20:06)
[2023-04-09] MEDS: BENZONATATE 100 MG CAPSULE 200 MG PO ×3 (04:35→20:31)
[2023-04-09 06:26] LABS: Basophils Percent Auto 0.5 % (0.2-1.2); Eosinophils Absolute Auto 0.2 K/mm3 (0-0.3); Eosinophils Percent Auto 2.6 % (0-4.4); Hematocrit 33.2 % (42.0-52.0); Hemoglobin 11.1 g/dL (14.0-18.0); Immature Granulocyte Absolute 0.08 K/mm3 (0.00-0.031); Lymphocytes Absolute Auto 1.29 K/mm3 (0.9-3.2); Lymphocytes Percent Auto 16.2 % (18.3-44.2); Mean Corpuscular HGB Conc 33.4 g/dl (32-36); Mean Corpuscular Hemoglobin 32.2 pg (26-34); Mean Corpuscular Volume 96.2 fl (80-100); Mean Platelet Volume 9.5 fl (7.4-10.4); Monocytes Absolute Auto 0.7 K/mm3 (0.1-0.6); Neutrophils Absolute Auto 5.6 K/mm3 (1.3-6.7); Neutrophils Percent Auto 70.7 % (45.5-73.1); Platelet Count Result 211 k/mm3 (150-375); Red Blood Count 3.45 M/mm3 (4.6-6.20); Red Cell Distribution Width 11.9 % (11.5-14.5)
[2023-04-09 06:43] LABS: Alanine Aminotransferase 30 U/L (6-50); Albumin Level 3.4 g/dL (3.5-5.1); Alkaline Phosphatase 58 U/L (38-126); Anion Gap 8 mmol/L (8-16); Aspartate Amino Transferase 36 U/L (17-59); Bilirubin,Total 0.7 mg/dL (0.2-1.3); Blood Urea Nitrogen 11 mg/dL (9-20); Calcium 8.4 mg/dL (8.4-10.2); Carbon Dioxide 23 mmol/L (22-30); Chloride 106 mmol/L (98-107); Estimated CRCL calculation 107 ml/min; Estimated Glomerular Filt Rate > 60; Glucose 129 mg/dL (65-110); Potassium 4.1 mmol/L (3.4-5.0); Sodium 137 mmol/L (137-145)
[2023-04-09] MEDS: BUDESONIDE RESPULE NEB 0.5 MG/2 ML AMP INHALATION ×2 (06:59→20:06)
[2023-04-09 08:13] LABS: Glucose Point of Care 130 mg/dl (65-105)
[2023-04-09] MEDS: guaiFENesin 12 HR 600 MG TABCR PO ×2 (08:15→20:31)
[2023-04-09] MEDS: DICLOFENAC SOD 75 MG TABLET.EC PO ×2 (08:15→17:35)
[2023-04-09] MEDS: PANTOPRAZOLE 40 MG TABLET PO (08:15)
[2023-04-09] MEDS: AZITHROMYCIN 500 MG/NS 250 ML 500 MG/250 ML BAG 250 MG IVPB (08:16)
[2023-04-09] MEDS: ENOXAPARIN 40 MG/0.4 ML SYRINGE SUB-Q (08:17)
[2023-04-09] MEDS: INSULIN GLARGINE (*BKC) 100 UNITS/ML 20 UNITS SUB-Q (08:27)
--- NOTE | 2023-04-09 11:04 | PM.PNPUL ---
Progress Note: A&P Assessment and Plan (1) Acute respiratory failure with hypoxia: Code(s): J96.01 - Acute respiratory failure with hypoxia Status: Acute (2) RSV (respiratory syncytial virus pneumonia): Code(s): J12.1 - Respiratory syncytial virus pneumonia Status: Acute Assessment and Plan: A 67-year-old male patient presented with symptoms of cough, dyspnea, general malaise, and a low-grade fever. Diagnostic evaluations, including a chest CT and PCR testing, revealed bilateral infiltrates indicative of pneumonia, likely due to Respiratory Syncytial Virus. The patient has been receiving ceftriaxone and azithromycin for potential co-infection, a common complication in viral pneumonias, typically associated with Streptococcus pneumoniae or Staphylococcal infection. Urine antigen tests for Streptococcus pneumoniae and Legionella are pending, while the MRSA screen returned negative. Blood culture showed Gram-positive cocci in one bottle, which could potentially be a skin contaminant. The final report is awaited. WBC is back into the normal range. Patient continues to have cough and no evidence of wheezing on physical exam. The management plan includes continuation of the current antibiotic regimen while awaiting the urine antigen results for Streptococcus pneumoniae. Short-acting bronchodilators will be continued, DVT prophylaxis as ordered and nebulized Pulmicort has been added to the regimen, to be administered twice daily. Consider cough suppressant medicine at HS. (3) Insulin dependent type 2 diabetes mellitus: Code(s): E11.9 - Type 2 diabetes mellitus without complications; Z79.4 - penitentiary (current) use of insulin Status: Acute Subjective Date/time seen: 04/09/23 11:04 Interval history: Patient continues to have cough. He still on supplemental oxygen via nasal cannula. Did not sleep well last night because of frequent coughing. Review of Systems Review of Systems: All systems reviewed & are unremarkable except as noted in HPI and below (HPI and below) Exam Narrative: GENERAL APPEARANCE: Well developed, well nourished, alert and cooperative, and appears to be in no acute distress SKIN: Inspection of the skin reveals no rashes, ulcerations or petechiae. HEENT: Sclerae anicteric and conjunctivae pink and moist. Extraocular movements were intact and pupils were equal, round, and reactive to light. The oral mucosa, hard and soft palate, tongue and posterior pharynx were normal. NECK: Supple. There was no thyroid enlargement, and no tenderness, or masses were felt. CHEST: Normal AP diameter and normal contour without any kyphoscoliosis. LUNGS: Rare crackles at left base otherwise clear lungs no wheezing CARDIAC: There was a regular rate and rhythm without any murmurs, gallops, rubs. ABDOMEN: Soft and nontender with normal bowel sounds. There was no organomegaly. LYMPH NODES: No lymphadenopathy was appreciated in the neck. EXTREMITIES: No cyanosis, clubbing or edema. NEUROLOGIC: Alert and oriented x 3. Normal affect. Objective Data Vital Signs Vital Signs: Vital Signs - 24 hr 04/08/23 11:18 04/08/23 13:27 04/08/23 14:03 Temperature 36.7 C Pulse Rate 69 79 Respiratory Rate 18 18 Blood Pressure 120/68 Pulse Oximetry 95 99 Oxygen Delivery Nasal Cannula Oxygen Flow Rate 2 04/08/23 14:14 04/08/23 19:36 04/08/23 20:07 Temperature 36.6 C Pulse Rate 81 64 69 Respiratory Rate 18 20 18 Blood Pressure 119/63 Pulse Oximetry 97 Oxygen Delivery Oxygen Flow Rate 04/08/23 20:10 04/08/23 20:00 04/09/23 02:07 Temperature Pulse Rate 69 73 Respiratory Rate 20 Blood Pressure Pulse Oximetry 93 96 Oxygen Delivery Nasal Cannula Nasal Cannula Oxygen Flow Rate 2 2 04/08/23 20:15 04/09/23 02:15 04/09/23 04:37 Temperature 36.9 C Pulse Rate 70 71 87 Respiratory Rate 18 20 20 Blood Pressure 135/79 Pulse Oximetry 97 Oxygen Delivery O
--- NOTE | 2023-04-09 11:13 | PM.IMPN ---
Progress Note: A&P Assessment and Plan (1) RSV (respiratory syncytial virus pneumonia): Code(s): J12.1 - Respiratory syncytial virus pneumonia Status: Acute (2) Insulin dependent type 2 diabetes mellitus: Code(s): E11.9 - Type 2 diabetes mellitus without complications; Z79.4 - [facility] (current) use of insulin Status: Acute (3) Acute respiratory failure with hypoxia: Code(s): J96.01 - Acute respiratory failure with hypoxia Status: Acute (4) Multifocal pneumonia: Code(s): J18.9 - Pneumonia, unspecified organism Status: Acute (5) Hypertension: Qualifiers: Hypertension type: primary hypertension Qualified Code(s): I10 - Essential (primary) hypertension Code(s): I10 - Essential (primary) hypertension Status: Chronic Plan Acute respiratory failure with hypoxia -Secondary to Multifocal PNA/RSV+ -continue to treat for possible gram -/+ bacterial PNA vs viral RSV PNA or co-infection -Pulmonary consulted added Pulmicort BID -DuoNebs -Chest x-ray/CT BLL consolidations/Multifocal PNA bacterial vs virus vs co-infection -incentive spirometry while awake. -sputum culture pending -influenza/COVID negative/RSV positive -respiratory panel pending -antibiotic therapy/MRSA nares negative de-escalated d/c vanc -supplemental oxygen therapy to maintain oxygen 92%/5L HF was de-escaleted to 2L -monitor for signs of in sepsis -blood cultures x2 aerobic bottle +likely contamination -CMP/CBC daily -antipyretics Diabetes -Accu-Cheks a.c. HS -sliding scale insulin -resume patient's home long-acting -Diabetic diet -consult to dietitian -encourage lifestyle modifications and weight loss -Optimize Jose inhibitors and statins. -Watch for hypoglycemia/hypoglycemic protocol ordered Obesity -encourage increased on physical activity and lifestyle modifications -Stress monitoring and eating disorder evaluation. -encourage outpatient weight loss clinic -BMI . -Diet exercise counseling done. -consult to dietitian HTN -stable -Resumed home JOSE BPH -resumed Flomax -monitor for retention Code status: Full code per patient DVT prophylaxis: Lovenox Stress ulcer prophylaxis: Protonix 40 daily PT/OT notes: Ambulatory Disposition: Admission for multifocal PNA/RSV + with acute respiratory failure with hypoxia. Will continue to wean oxygen requirements and treat for bacterial PNA. Pulm consulted, patient is ambulatory and will likely return to home when medically stable. Dictation performed by [employer] direct speech recognition software, therefore field operations supervisor variants and typographical errors may occur. Time Spent With Patient Time with patient: less than 15 minutes Subjective Date/time seen: 04/09/23 11:13 Interval history: Chief Complaint: Cough, chest pain, shortness of breath. Narrative: This is a 67-year-old male with insulin-dependent type 2 diabetes mellitus, hypertension, hyperlipidemia, and benign prostatic hyperplasia who presented to the emergency department from [facility] for evaluation of cough, chest pain, and shortness of breath. The patient provides the following history. He had COVID in November and he was told a month or so ago that he probably has long COVID. He has had intermittent and ongoing issues with respiratory symptoms. Towards the end of January he once again developed cough and shortness of breath and was treated with antibiotics for pneumonia. He felt better for couple of weeks before his symptoms returned. More recently he was seen at a local [facility] where he was diagnosed with bronchitis and was prescribed an inhaler, steroids, and Tessalon Perles. Those seem to have helped his symptoms briefly all though the last several days he has once again started to spike a fever within unrelenting cough, body aches, and generalized malaise. He is having difficulty sleeping due to the cough. Fever has
[2023-04-09 12:12] LABS: Glucose Point of Care 139 mg/dl (65-105)
[2023-04-09] MEDS: BENZOCAINE/MENTHOL (*BKC) 18 EA LOZENGE 1 LOZENGE PO (16:34)
[2023-04-09 17:30] LABS: Glucose Point of Care 163 mg/dl (65-105)
[2023-04-09] MEDS: ASPIRIN 81 MG ENTERIC TABLET BY MOUTH (20:31)
[2023-04-09] MEDS: PYRIDOXINE HCL 50 MG TABLET 100 MG PO (20:31)
[2023-04-09] MEDS: MAGNESIUM 27 MG TABLET (500 MG MAG GLUCONATE) PO (20:31)
[2023-04-09] MEDS: ASCORBIC ACID 500 MG TABLET 1000 MG PO (20:31)
[2023-04-09] MEDS: CYANOCOBALAMIN 1,000 MCG TABLET 1000 MCG PO (20:31)
[2023-04-09] MEDS: VITAMIN B COMPLEX CAPSULE 2 CAP PO (20:31)
[2023-04-09] MEDS: MULTIVITAMINS THERAPEUTIC TAB (*BKC) 1 TABLET PO (20:31)
[2023-04-09] MEDS: SIMVASTATIN 20 MG TABLET 40 MG PO (20:32)
[2023-04-09] MEDS: lisinopriL 20 MG TABLET 40 MG PO (20:32)
[2023-04-09] MEDS: TAMSULOSIN HCL 0.4 MG CAPSULE 0.8 MG PO (20:32)
[2023-04-09] MEDS: CHOLECALCIFEROL 1,000 UNITS TABLET 1000 UNITS PO (20:32)
[2023-04-09 23:41] LABS: Glucose Point of Care 161 mg/dl (65-105)
[2023-04-10] VITALS (14 sets, daily range): BP systolic 102–132; BP diastolic 52–59; PULSE 70–100; RESP 16–20; TEMP 36.7–37.1; O2SAT 93–98
[2023-04-10] MEDS: SODIUM CHLORIDE 0.9% IV 1,000 ML 100 ML IV CONT (00:07)
[2023-04-10] MEDS: IPRATROPIUM 0.5 MG/ALBUTEROL SULFATE 2.5 MG AMPUL.NEB 3 ML INHALATION ×4 (02:01→19:49)
[2023-04-10] MEDS: guaiFENesin/DEXTROMETHORPHAN 10 ML UDC PO ×3 (02:18→16:14)
[2023-04-10 06:05] LABS: Basophils Percent Auto 0.5 % (0.2-1.2); Eosinophils Absolute Auto 0.3 K/mm3 (0-0.3); Eosinophils Percent Auto 3.4 % (0-4.4); Hematocrit 33.9 % (42.0-52.0); Hemoglobin 11.1 g/dL (14.0-18.0); Immature Granulocyte Absolute 0.07 K/mm3 (0.00-0.031); Lymphocytes Absolute Auto 1.41 K/mm3 (0.9-3.2); Lymphocytes Percent Auto 19.3 % (18.3-44.2); Mean Corpuscular HGB Conc 32.7 g/dl (32-36); Mean Corpuscular Hemoglobin 31.9 pg (26-34); Mean Corpuscular Volume 97.4 fl (80-100); Mean Platelet Volume 9.7 fl (7.4-10.4); Monocytes Absolute Auto 0.7 K/mm3 (0.1-0.6); Monocytes Percent Auto 10.1 % (2.6-8.5); Neutrophils Absolute Auto 4.8 K/mm3 (1.3-6.7); Neutrophils Percent Auto 65.7 % (45.5-73.1); Platelet Count Result 221 k/mm3 (150-375); Red Blood Count 3.48 M/mm3 (4.6-6.20); White Blood Count 7.3 K/mm3 (4.5-10.0)
[2023-04-10 06:16] LABS: Alanine Aminotransferase 30 U/L (6-50); Albumin Level 3.6 g/dL (3.5-5.1); Alkaline Phosphatase 61 U/L (38-126); Anion Gap 8 mmol/L (8-16); Aspartate Amino Transferase 34 U/L (17-59); Bilirubin,Total 0.7 mg/dL (0.2-1.3); Blood Urea Nitrogen 10 mg/dL (9-20); Calcium 8.6 mg/dL (8.4-10.2); Carbon Dioxide 26 mmol/L (22-30); Chloride 104 mmol/L (98-107); Estimated CRCL calculation 96 ml/min; Estimated Glomerular Filt Rate > 60; Glucose 120 mg/dL (65-110); Sodium 138 mmol/L (137-145)
[2023-04-10] MEDS: BUDESONIDE RESPULE NEB 0.5 MG/2 ML AMP INHALATION ×2 (07:40→19:48)
[2023-04-10] MEDS: INSULIN GLARGINE (*BKC) 100 UNITS/ML 20 UNITS SUB-Q (08:10)
[2023-04-10] MEDS: PANTOPRAZOLE 40 MG TABLET PO (08:13)
[2023-04-10] MEDS: ENOXAPARIN 40 MG/0.4 ML SYRINGE SUB-Q (08:13)
[2023-04-10] MEDS: DICLOFENAC SOD 75 MG TABLET.EC PO ×2 (08:13→16:09)
[2023-04-10] MEDS: guaiFENesin 12 HR 600 MG TABCR PO ×2 (08:13→20:10)
[2023-04-10 09:03] LABS: Glucose Point of Care 133 mg/dl (65-105)
[2023-04-10] MEDS: AZITHROMYCIN 500 MG/NS 250 ML 500 MG/250 ML BAG 250 MG IVPB (09:37)
[2023-04-10 11:49] LABS: Glucose Point of Care 142 mg/dl (65-105)
[2023-04-10 13:33] LABS: Mycoplasma IgM Antibody Titer 423 U/mL (<770)
--- NOTE | 2023-04-10 13:42 | PM.IMPN ---
Progress Note: A&P Assessment and Plan (1) RSV (respiratory syncytial virus pneumonia): Code(s): J12.1 - Respiratory syncytial virus pneumonia Status: Acute Assessment and Plan: see plan below (2) Insulin dependent type 2 diabetes mellitus: Code(s): E11.9 - Type 2 diabetes mellitus without complications; Z79.4 - long term (current) use of insulin Status: Chronic Assessment and Plan: Accu-Cheks a.c. HS, hypoglycemia protocol sliding scale insulin resume patient's home long-acting (3) Acute respiratory failure with hypoxia: Code(s): J96.01 - Acute respiratory failure with hypoxia Status: Acute Assessment and Plan: Secondary to Multifocal PNA/RSV+ -continue to treat for possible gram -/+ bacterial PNA vs viral RSV PNA or co-infection -Pulmonary consulted added Pulmicort BID -DuoNebs -Chest x-ray/CT BLL consolidations/Multifocal PNA bacterial vs virus vs co-infection -incentive spirometry while awake. -sputum culture pending -supplemental oxygen therapy to maintain oxygen 92%/5L HF was de-escaleted to 3L -blood cultures x2 aerobic bottle +likely contamination -antipyretics will try codeine cough syrup at night alternated with Robitussin (4) Multifocal pneumonia: Code(s): J18.9 - Pneumonia, unspecified organism Status: Acute Assessment and Plan: see above plan (5) Hypertension: Qualifiers: Hypertension type: primary hypertension Qualified Code(s): I10 - Essential (primary) hypertension Code(s): I10 - Essential (primary) hypertension Status: Chronic Assessment and Plan: stable, continue lisinopril Subjective Date/time seen: 04/10/23 13:42 Interval history: Patient still having complaints of dry, non-productive cough causing difficulty sleeping. He is not in acute distress, but overall uncomfortable and in poor spirits. Remains on 3L NC oxygen which is not his baseline. D/C fluids as he is drinking fluids. Transitioned to PO Augmentin today from Rocephin. Pulmonology following. BC pending final results, prelim likely a contaminant. Review of Systems Review of Systems: All systems reviewed & are unremarkable except as noted in HPI and below Exam Narrative: Acutely ill gentleman with moderate difficulty breathing, well nourished and appears stated age Const: General: in distress mild and respiratory HENMT: Mouth: Yes moist mucous membranes Eyes: General: appearance normal, both eyes and all related structures Pupils: Equal, round and reactive pupils present Neck: Neck: supple Resp: Effort & Inspection: normal respiratory effort (Tachypnea with use of accessory muscles) Cardio: Rate: regular rate Rhythm: regular rhythm Other: S1 and S2 GI: Auscultation: normal bowel sounds Other: Non-distended Skin: General skin exam: normal color Neuro: General: gait normal Cranial nerves: Yes Equal, round and reactive pupils present Speech: normal speech Motor exam (neuro): Normal motor muscle tone present throughout Extrem: General: normal to inspection Psych: Mental Status: mental status grossly normal Objective Data Vital Signs Vital Signs: Vital Signs - 24 hr 04/09/23 14:00 04/09/23 20:07 04/09/23 20:07 Temperature 98.0 F Pulse Rate 69 80 80 Respiratory Rate 16 16 16 Blood Pressure 121/66 Pulse Oximetry 94 96 Oxygen Delivery Nasal Cannula Oxygen Flow Rate 2 Fraction of Inspired Oxygen 28 04/09/23 20:19 04/09/23 20:00 04/09/23 20:17 Temperature 97.9 F Pulse Rate 75 85 Respiratory Rate 16 16 Blood Pressure 121/54 L Pulse Oximetry 96 96 Oxygen Delivery Nasal Cannula Oxygen Flow Rate 2 Fraction of Inspired Oxygen 04/10/23 02:03 04/10/23 02:10 04/10/23 04:46 Temperature 98.7 F Pulse Rate 89 82 100 Respiratory Rate 20 20 16 Blood Pressure 132/55 L Pulse Oximetry 93 Oxygen Delivery Oxygen Flow Rate Jayesh
--- NOTE | 2023-04-10 13:57 | PM.PNPUL ---
Progress Note: A&P Assessment and Plan (1) Acute respiratory failure with hypoxia: Code(s): J96.01 - Acute respiratory failure with hypoxia Status: Acute (2) RSV (respiratory syncytial virus pneumonia): Code(s): J12.1 - Respiratory syncytial virus pneumonia Status: Acute Assessment and Plan: A 67-year-old male patient presented with symptoms of cough, dyspnea, general malaise, and a low-grade fever. Diagnostic evaluations, including a chest CT and PCR testing, revealed bilateral infiltrates indicative of pneumonia, likely due to Respiratory Syncytial Virus. The patient has been receiving antibiotics initially ceftriaxone ceftriaxone and azithromycin for potential co-infection, a common complication in viral pneumonias, typically associated with Streptococcus pneumoniae or Staphylococcal infection. Currently on Augmentin orally. Urine antigen tests for Streptococcus pneumoniae and Legionella are pending, while the MRSA screen returned negative. WBC is back into the normal range. Patient continues to have cough and no evidence of wheezing on physical exam. Plan: Continue with the current management nebulized Pulmicort short-acting bronchodilators p.r.n.. He cannot be on strong antitussive like codeine as he is allergic to oxycodone. Consider Robitussin DM for cough control. Out of bed to chair. (3) Insulin dependent type 2 diabetes mellitus: Code(s): E11.9 - Type 2 diabetes mellitus without complications; Z79.4 - [facility] (current) use of insulin Status: Chronic Subjective Date/time seen: 04/10/23 13:57 Interval history: Patient continues to complain of cough and weakness. Did not sleep well last night. He has no shortness of breath or wheezing. Afebrile still on supplemental oxygen via nasal cannula Review of Systems Review of Systems: All systems reviewed & are unremarkable except as noted in HPI and below Exam Narrative: GENERAL APPEARANCE: Well developed, well nourished, alert and cooperative, and appears to be in no acute distress SKIN: Inspection of the skin reveals no rashes, ulcerations or petechiae. HEENT: Sclerae anicteric and conjunctivae pink and moist. Extraocular movements were intact and pupils were equal, round, and reactive to light. The oral mucosa, hard and soft palate, tongue and posterior pharynx were normal. NECK: Supple. There was no thyroid enlargement, and no tenderness, or masses were felt. CHEST: Normal AP diameter and normal contour without any kyphoscoliosis. LUNGS: Rare crackles at left base otherwise clear lungs no wheezing CARDIAC: There was a regular rate and rhythm without any murmurs, gallops, rubs. ABDOMEN: Soft and nontender with normal bowel sounds. There was no organomegaly. LYMPH NODES: No lymphadenopathy was appreciated in the neck. EXTREMITIES: No cyanosis, clubbing or edema. NEUROLOGIC: Alert and oriented x 3. Normal affect. Objective Data Vital Signs Vital Signs: Vital Signs - 24 hr 04/09/23 14:00 04/09/23 20:07 04/09/23 20:07 Temperature 36.7 C Pulse Rate 69 80 80 Respiratory Rate 16 16 16 Blood Pressure 121/66 Pulse Oximetry 94 96 Oxygen Delivery Nasal Cannula Oxygen Flow Rate 2 Fraction of Inspired Oxygen 28 04/09/23 20:19 04/09/23 20:00 04/09/23 20:17 Temperature 36.6 C Pulse Rate 75 85 Respiratory Rate 16 16 Blood Pressure 121/54 L Pulse Oximetry 96 96 Oxygen Delivery Nasal Cannula Oxygen Flow Rate 2 Fraction of Inspired Oxygen 04/10/23 02:03 04/10/23 02:10 04/10/23 04:46 Temperature 37.1 C Pulse Rate 89 82 100 Respiratory Rate 20 20 16 Blood Pressure 132/55 L Pulse Oximetry 93 Oxygen Delivery Oxygen Flow Rate Fraction of Inspired Oxygen 04/10/23 07:40 04/10/23 07:44 04/10/23 07:55 Temperature Pulse Rate 80 82 Respiratory Rate 20 20 Blood Pressure Pulse Oximetry 94 Oxygen Delivery Nasal Cannula Oxygen Flow Rate 3 Fraction of Inspired Ox
[2023-04-10 17:07] LABS: Glucose Point of Care 136 mg/dl (65-105)
[2023-04-10] MEDS: ACETAMINOPHEN 325 MG TABLET 650 MG PO (18:42)
[2023-04-10] MEDS: PYRIDOXINE HCL 50 MG TABLET 100 MG PO (20:09)
[2023-04-10] MEDS: ASCORBIC ACID 500 MG TABLET 1000 MG PO (20:09)
[2023-04-10] MEDS: VITAMIN B COMPLEX CAPSULE 2 CAP PO (20:09)
[2023-04-10] MEDS: CYANOCOBALAMIN 1,000 MCG TABLET 1000 MCG PO (20:09)
[2023-04-10] MEDS: PROMETHAZINE/CODEINE (*CRX) 5 ML SYRUP PO (20:09)
[2023-04-10] MEDS: SIMVASTATIN 20 MG TABLET 40 MG PO (20:09)
[2023-04-10] MEDS: CHOLECALCIFEROL 1,000 UNITS TABLET 1000 UNITS PO (20:09)
[2023-04-10] MEDS: TAMSULOSIN HCL 0.4 MG CAPSULE 0.8 MG PO (20:09)
[2023-04-10] MEDS: ASPIRIN 81 MG ENTERIC TABLET BY MOUTH (20:09)
[2023-04-10] MEDS: lisinopriL 20 MG TABLET 40 MG PO (20:10)
[2023-04-10] MEDS: MAGNESIUM 27 MG TABLET (500 MG MAG GLUCONATE) PO (20:10)
[2023-04-10] MEDS: MULTIVITAMINS THERAPEUTIC TAB (*BKC) 1 TABLET PO (20:10)
[2023-04-10 20:45] LABS: Pneumococcal Antigen Urine Not Detected (Not Detected)
[2023-04-10 22:06] LABS: Glucose Point of Care 126 mg/dl (65-105)
[2023-04-10] MEDS: WATER FOR IRRIGATION, STERILE 1,000 ML BOTTLE 1000 ML (22:50)
[2023-04-11] VITALS (13 sets, daily range): BP systolic 110–122; BP diastolic 58–59; PULSE 61–73; RESP 16–20; TEMP 36.3–36.8; O2SAT 92–94
[2023-04-11] MEDS: IPRATROPIUM 0.5 MG/ALBUTEROL SULFATE 2.5 MG AMPUL.NEB 3 ML INHALATION ×4 (02:26→19:47)
[2023-04-11 03:05] LABS: Legionella pneumophila Ag Ur Not Detected (Not Detected)
[2023-04-11 06:14] LABS: Basophils Absolute Auto 0.1 K/mm3 (0.0-0.1); Basophils Percent Auto 0.8 % (0.2-1.2); Eosinophils Absolute Auto 0.2 K/mm3 (0-0.3); Eosinophils Percent Auto 2.9 % (0-4.4); Hematocrit 35.5 % (42.0-52.0); Hemoglobin 11.8 g/dL (14.0-18.0); Immature Granulocyte Absolute 0.09 K/mm3 (0.00-0.031); Immature Granulocyte Percent A 1.2 % (0-0.5); Lymphocytes Absolute Auto 1.89 K/mm3 (0.9-3.2); Lymphocytes Percent Auto 25.2 % (18.3-44.2); Mean Corpuscular HGB Conc 33.2 g/dl (32-36); Mean Corpuscular Hemoglobin 31.9 pg (26-34); Mean Corpuscular Volume 95.9 fl (80-100); Mean Platelet Volume 9.4 fl (7.4-10.4); Monocytes Absolute Auto 0.7 K/mm3 (0.1-0.6); Monocytes Percent Auto 9.5 % (2.6-8.5); Neutrophils Absolute Auto 4.5 K/mm3 (1.3-6.7); Neutrophils Percent Auto 60.4 % (45.5-73.1); Platelet Count Result 242 k/mm3 (150-375); Red Cell Distribution Width 11.9 % (11.5-14.5); White Blood Count 7.5 K/mm3 (4.5-10.0)
[2023-04-11 06:24] LABS: Alanine Aminotransferase 33 U/L (6-50); Albumin Level 3.5 g/dL (3.5-5.1); Alkaline Phosphatase 63 U/L (38-126); Anion Gap 7 mmol/L (8-16); Aspartate Amino Transferase 40 U/L (17-59); Bilirubin,Total 0.6 mg/dL (0.2-1.3); Blood Urea Nitrogen 12 mg/dL (9-20); Calcium 8.9 mg/dL (8.4-10.2); Carbon Dioxide 28 mmol/L (22-30); Chloride 106 mmol/L (98-107); Estimated CRCL calculation 87 ml/min; Estimated Glomerular Filt Rate > 60; Glucose 110 mg/dL (65-110); Potassium 4.3 mmol/L (3.4-5.0); Sodium 141 mmol/L (137-145)
[2023-04-11] MEDS: BUDESONIDE RESPULE NEB 0.5 MG/2 ML AMP INHALATION ×2 (07:18→19:47)
[2023-04-11] MEDS: DICLOFENAC SOD 75 MG TABLET.EC PO ×2 (08:06→17:24)
[2023-04-11] MEDS: AMOXICILLIN/CLAVULANATE K 875-125 MG TAB 1 TABLET PO ×2 (08:06→20:13)
[2023-04-11] MEDS: guaiFENesin 12 HR 600 MG TABCR PO ×2 (08:06→20:13)
[2023-04-11] MEDS: guaiFENesin/DEXTROMETHORPHAN 10 ML UDC PO (08:06)
[2023-04-11] MEDS: PANTOPRAZOLE 40 MG TABLET PO (08:06)
[2023-04-11] MEDS: INSULIN GLARGINE (*BKC) 100 UNITS/ML 20 UNITS SUB-Q (08:07)
[2023-04-11] MEDS: ENOXAPARIN 40 MG/0.4 ML SYRINGE SUB-Q (08:07)
[2023-04-11 08:17] LABS: Glucose Point of Care 130 mg/dl (65-105)
--- NOTE | 2023-04-11 09:45 | PM.PNPUL ---
Progress Note: A&P Assessment and Plan (1) Acute respiratory failure with hypoxia: Code(s): J96.01 - Acute respiratory failure with hypoxia Status: Acute (2) RSV (respiratory syncytial virus pneumonia): Code(s): J12.1 - Respiratory syncytial virus pneumonia Status: Acute Assessment and Plan: A 67-year-old male patient presented with symptoms of cough, dyspnea, general malaise, and a low-grade fever. Diagnostic evaluations, including a chest CT and PCR testing, revealed bilateral infiltrates indicative of pneumonia, likely due to Respiratory Syncytial Virus. The patient has been receiving antibiotics initially ceftriaxone and azithromycin for potential co-infection, a common complication in viral pneumonias, typically associated with Streptococcus pneumoniae or Staphylococcal infection. Currently on Augmentin orally. Urine antigen tests for Streptococcus pneumoniae and Legionella negative, also MRSA screen returned negative. WBC is back into the normal range. Patient continues to have cough and no evidence of wheezing on physical exam. Slept better last night on the new antitussive medicine. Plan: Continue with the current management nebulized Pulmicort short-acting bronchodilators p.r.n.. Continue with current antitussive for cough control especially at night. He should complete a total of 7 days treatment with antibiotics. Okay to DC home in a.m. patient should be discharged home on ics inhaler like QVAR 80, 1 puff twice daily until cough clears. Also albuterol rescue inhaler for p.r.n. use. Patient will need repeat chest x-ray through his primary care provider in approximately 6 weeks to document clearing of bilateral pneumonias. Will sign off please call with any questions. (3) Insulin dependent type 2 diabetes mellitus: Code(s): E11.9 - Type 2 diabetes mellitus without complications; Z79.4 - [facility] (current) use of insulin Status: Chronic Subjective Date/time seen: 04/11/23 09:45 Interval history: Patient doing better today. He slept well last night after taking new antitussive medicine. Off supplemental oxygen this a.m. Review of Systems Review of Systems: All systems reviewed & are unremarkable except as noted in HPI and below (HPI and below) Exam Narrative: GENERAL APPEARANCE: Well developed, well nourished, alert and cooperative, and appears to be in no acute distress SKIN: Inspection of the skin reveals no rashes, ulcerations or petechiae. HEENT: Sclerae anicteric and conjunctivae pink and moist. Extraocular movements were intact and pupils were equal, round, and reactive to light. The oral mucosa, hard and soft palate, tongue and posterior pharynx were normal. NECK: Supple. There was no thyroid enlargement, and no tenderness, or masses were felt. CHEST: Normal AP diameter and normal contour without any kyphoscoliosis. LUNGS: Rare crackles at left base otherwise clear lungs no wheezing CARDIAC: There was a regular rate and rhythm without any murmurs, gallops, rubs. ABDOMEN: Soft and nontender with normal bowel sounds. There was no organomegaly. LYMPH NODES: No lymphadenopathy was appreciated in the neck. EXTREMITIES: No cyanosis, clubbing or edema. NEUROLOGIC: Alert and oriented x 3. Normal affect. Objective Data Vital Signs Vital Signs: Vital Signs - 24 hr 04/10/23 13:43 04/10/23 13:56 04/10/23 14:00 Temperature 36.7 C Pulse Rate 72 72 73 Respiratory Rate 20 20 18 Blood Pressure 102/59 L Pulse Oximetry 98 Oxygen Delivery Oxygen Flow Rate 04/10/23 16:15 04/10/23 19:49 04/10/23 20:00 Temperature Pulse Rate 70 72 Respiratory Rate 20 20 Blood Pressure Pulse Oximetry 97 Oxygen Delivery Room Air Oxygen Flow Rate 04/10/23 20:00 04/10/23 20:07 04/10/23 20:00 Temperature 37.1 C Pulse Rate 73 Respiratory Rate 20 Blood Pressure 118/52 L Pulse Oximetry 93 94 94 Oxygen Delivery Nasal Cannula Nasal Cannula Oxygen
[2023-04-11 12:20] LABS: Glucose Point of Care 171 mg/dl (65-105)
--- NOTE | 2023-04-11 13:33 | PM.IMPN ---
Progress Note: A&P Assessment and Plan (1) RSV (respiratory syncytial virus pneumonia): Code(s): J12.1 - Respiratory syncytial virus pneumonia Status: Acute Assessment and Plan: see plan below (2) Insulin dependent type 2 diabetes mellitus: Code(s): E11.9 - Type 2 diabetes mellitus without complications; Z79.4 - [facility] (current) use of insulin Status: Chronic Assessment and Plan: Accu-Cheks a.c. HS, hypoglycemia protocol sliding scale insulin resume patient's home long-acting (3) Acute respiratory failure with hypoxia: Code(s): J96.01 - Acute respiratory failure with hypoxia Status: Acute Assessment and Plan: Secondary to Multifocal PNA/RSV+ continue to treat for possible gram -/+ bacterial PNA vs viral RSV PNA or co-infection Pulmonary consulted added Pulmicort BID DuoNebs Chest x-ray/CT BLL consolidations/Multifocal PNA bacterial vs virus vs co-infection incentive spirometry while awake. supplemental oxygen therapy to maintain oxygen 92%/5L HF was de-escalated to RA yesterday blood cultures x2 aerobic bottle +likely contamination will try codeine cough syrup at night alternated with Robitussin (4) Multifocal pneumonia: Code(s): J18.9 - Pneumonia, unspecified organism Status: Acute Assessment and Plan: see above plan (5) Hypertension: Qualifiers: Hypertension type: primary hypertension Qualified Code(s): I10 - Essential (primary) hypertension Code(s): I10 - Essential (primary) hypertension Status: Chronic Assessment and Plan: stable, continue lisinopril Subjective Date/time seen: 04/11/23 13:33 Interval history: Patient reports he is feeling a little better today, got more sleep last night with the cough syrup. He was on room air by the end of the day yesterday. Pulmonology has cleared him for d/c tomorrow if he remains stable. Review of Systems Review of Systems: All systems reviewed & are unremarkable except as noted in HPI and below Exam Const: General: no acute distress HENMT: Mouth: Yes moist mucous membranes Eyes: General: appearance normal, both eyes and all related structures Pupils: Equal, round and reactive pupils present Neck: Neck: supple Resp: Auscultation: clear to auscultation bilaterally Cardio: Rate: regular rate Rhythm: regular rhythm Other: S1 and S2 GI: Auscultation: normal bowel sounds Other: Non-distended Skin: General skin exam: normal color Neuro: Cranial nerves: Yes Equal, round and reactive pupils present Speech: normal speech Motor exam (neuro): Normal motor muscle tone present throughout Extrem: General: normal to inspection Psych: Mental Status: mental status grossly normal Objective Data Vital Signs Vital Signs: Vital Signs - 24 hr 04/10/23 13:43 04/10/23 13:56 04/10/23 14:00 Temperature 98.1 F Pulse Rate 72 72 73 Respiratory Rate 20 20 18 Blood Pressure 102/59 L Pulse Oximetry 98 Oxygen Delivery Oxygen Flow Rate 04/10/23 16:15 04/10/23 19:49 04/10/23 20:00 Temperature Pulse Rate 70 72 Respiratory Rate 20 20 Blood Pressure Pulse Oximetry 97 Oxygen Delivery Room Air Oxygen Flow Rate 04/10/23 20:00 04/10/23 20:07 04/10/23 20:00 Temperature 98.8 F Pulse Rate 73 Respiratory Rate 20 Blood Pressure 118/52 L Pulse Oximetry 93 94 94 Oxygen Delivery Nasal Cannula Nasal Cannula Oxygen Flow Rate 3 1 04/11/23 02:26 04/11/23 02:40 04/11/23 05:28 Temperature 97.8 F Pulse Rate 71 73 61 Respiratory Rate 20 20 18 Blood Pressure 119/58 L Pulse Oximetry 92 Oxygen Delivery Oxygen Flow Rate 04/11/23 07:20 04/11/23 07:21 04/11/23 07:32 Temperature Pulse Rate 64 64 Respiratory Rate 18 18 Blood Pressure Pulse Oximetry 92 Oxygen Delivery Room Air Oxygen Flow Rate 04/11/23 08:13 04/11/23 13:06 04/11/23 13:14 Temperature
[2023-04-11 17:05] LABS: Glucose Point of Care 117 mg/dl (65-105)
[2023-04-11] MEDS: MULTIVITAMINS THERAPEUTIC TAB (*BKC) 1 TABLET PO (20:12)
[2023-04-11] MEDS: SIMVASTATIN 20 MG TABLET 40 MG PO (20:12)
[2023-04-11] MEDS: ASCORBIC ACID 500 MG TABLET 1000 MG PO (20:12)
[2023-04-11] MEDS: PROMETHAZINE/CODEINE (*CRX) 5 ML SYRUP PO (20:13)
[2023-04-11] MEDS: VITAMIN B COMPLEX CAPSULE 2 CAP PO (20:13)
[2023-04-11] MEDS: CYANOCOBALAMIN 1,000 MCG TABLET 1000 MCG PO (20:13)
[2023-04-11] MEDS: ASPIRIN 81 MG ENTERIC TABLET BY MOUTH (20:13)
[2023-04-11] MEDS: PYRIDOXINE HCL 50 MG TABLET 100 MG PO (20:13)
[2023-04-11] MEDS: MAGNESIUM 27 MG TABLET (500 MG MAG GLUCONATE) PO (20:13)
[2023-04-11] MEDS: TAMSULOSIN HCL 0.4 MG CAPSULE 0.8 MG PO (20:13)
[2023-04-11] MEDS: lisinopriL 20 MG TABLET 40 MG PO (20:13)
[2023-04-11] MEDS: CHOLECALCIFEROL 1,000 UNITS TABLET 1000 UNITS PO (20:13)
[2023-04-11 20:59] LABS: Glucose Point of Care 116 mg/dl (65-105)
[2023-04-12 02:10] VITALS: PULSE 70; RESP 16
[2023-04-12] MEDS: IPRATROPIUM 0.5 MG/ALBUTEROL SULFATE 2.5 MG AMPUL.NEB 3 ML INHALATION ×2 (02:10→08:32)
[2023-04-12 02:18] VITALS: PULSE 68; RESP 18
[2023-04-12] MEDS: guaiFENesin/DEXTROMETHORPHAN 10 ML UDC PO (05:25)
[2023-04-12 05:28] VITALS: BP 117/68; PULSE 72; RESP 20; TEMP 36.1; O2SAT 95
[2023-04-12 05:59] LABS: Basophils Absolute Auto 0.1 K/mm3 (0.0-0.1); Basophils Percent Auto 0.7 % (0.2-1.2); Eosinophils Absolute Auto 0.3 K/mm3 (0-0.3); Eosinophils Percent Auto 3.5 % (0-4.4); Hematocrit 37.8 % (42.0-52.0); Hemoglobin 12.3 g/dL (14.0-18.0); Immature Granulocyte Absolute 0.12 K/mm3 (0.00-0.031); Immature Granulocyte Percent A 1.5 % (0-0.5); Lymphocytes Absolute Auto 1.89 K/mm3 (0.9-3.2); Lymphocytes Percent Auto 23.4 % (18.3-44.2); Mean Corpuscular HGB Conc 32.5 g/dl (32-36); Mean Corpuscular Hemoglobin 31.7 pg (26-34); Mean Corpuscular Volume 97.4 fl (80-100); Mean Platelet Volume 9.6 fl (7.4-10.4); Monocytes Absolute Auto 0.7 K/mm3 (0.1-0.6); Monocytes Percent Auto 8.4 % (2.6-8.5); Neutrophils Percent Auto 62.5 % (45.5-73.1); Platelet Count Result 256 k/mm3 (150-375); Red Blood Count 3.88 M/mm3 (4.6-6.20); Red Cell Distribution Width 11.9 % (11.5-14.5); White Blood Count 8.1 K/mm3 (4.5-10.0)
[2023-04-12 06:12] LABS: Alanine Aminotransferase 34 U/L (6-50); Albumin Level 3.6 g/dL (3.5-5.1); Alkaline Phosphatase 63 U/L (38-126); Anion Gap 9 mmol/L (8-16); Aspartate Amino Transferase 38 U/L (17-59); Bilirubin,Total 0.5 mg/dL (0.2-1.3); Blood Urea Nitrogen 13 mg/dL (9-20); Calcium 9.1 mg/dL (8.4-10.2); Carbon Dioxide 26 mmol/L (22-30); Chloride 106 mmol/L (98-107); Estimated CRCL calculation 87 ml/min; Estimated Glomerular Filt Rate > 60; Glucose 108 mg/dL (65-110); Potassium 4.4 mmol/L (3.4-5.0); Sodium 141 mmol/L (137-145)
[2023-04-12 08:32] VITALS: PULSE 74; RESP 18
[2023-04-12] MEDS: BUDESONIDE RESPULE NEB 0.5 MG/2 ML AMP INHALATION (08:32)
[2023-04-12 08:34] LABS: Glucose Point of Care 119 mg/dl (65-105)
[2023-04-12 08:35] VITALS: PULSE 74; RESP 18; O2SAT 94
[2023-04-12 08:42] VITALS: PULSE 72; RESP 18
--- NOTE | 2023-04-12 08:43 | PCNWS ---
Weekly nutritional screen. Patient is tolerating current diet with adequate intake. No weight loss reported. No nutritional needs at this time.
[2023-04-12] MEDS: guaiFENesin 12 HR 600 MG TABCR PO (08:48)
[2023-04-12] MEDS: PANTOPRAZOLE 40 MG TABLET PO (08:48)
[2023-04-12] MEDS: ENOXAPARIN 40 MG/0.4 ML SYRINGE SUB-Q (08:48)
[2023-04-12] MEDS: DICLOFENAC SOD 75 MG TABLET.EC PO (08:48)
[2023-04-12] MEDS: AMOXICILLIN/CLAVULANATE K 875-125 MG TAB 1 TABLET PO (08:48)
[2023-04-12] MEDS: INSULIN GLARGINE (*BKC) 100 UNITS/ML 20 UNITS SUB-Q (08:49)
--- NOTE | 2023-04-12 11:14 | PM.DS ---
DS: Admitting Diagnosis Discharge Date 04/12/23 Admitting Diagnosis acute respiratory failure with hypoxia DS: Discharge Diagnosis Discharge Diagnosis (1) RSV (respiratory syncytial virus pneumonia): Code(s): J12.1 - Respiratory syncytial virus pneumonia Status: Acute Assessment and Plan: see plan below (2) Insulin dependent type 2 diabetes mellitus: Code(s): E11.9 - Type 2 diabetes mellitus without complications; Z79.4 - longterm (current) use of insulin Status: Chronic Assessment and Plan: resume patient's home regimen (3) Acute respiratory failure with hypoxia: Code(s): J96.01 - Acute respiratory failure with hypoxia Status: Acute Assessment and Plan: Secondary to Multifocal PNA/RSV+: Chest x-ray/CT BLL consolidations/Multifocal PNA bacterial vs virus vs co-infection Pulmonary consulted - recommended QVAR 80 inhaler BID at d/c, follow up with PCP and repeat XR in 6 weeks. on room air blood cultures x2 aerobic bottle +likely contamination - will not treat (4) Multifocal pneumonia: Code(s): J18.9 - Pneumonia, unspecified organism Status: Acute Assessment and Plan: see above plan (5) Hypertension: Qualifiers: Hypertension type: primary hypertension Qualified Code(s): I10 - Essential (primary) hypertension Code(s): I10 - Essential (primary) hypertension Status: Chronic Assessment and Plan: stable, continue lisinopril DS: Summary Hospital Course Hospital Course: Patient is a 67 YO male with PMH of insulin-dependent type 2 diabetes mellitus, hypertension, hyperlipidemia, and benign prostatic hyperplasia admitted for cough, chest pain, and shortness of breath. He had COVID in November and he was told a month or so ago that he probably has long COVID. He has had intermittent and ongoing issues with respiratory symptoms. Towards the end of January he once again developed cough and shortness of breath and was treated with antibiotics for pneumonia. He felt better for couple of weeks before his symptoms returned. More recently he was seen at a local [facility] where he was diagnosed with bronchitis and was prescribed an inhaler, steroids, and Tessalon Perles. Those seem to have helped his symptoms briefly all though the last several days he has once again started to spike a fever within unrelenting cough, body aches, and generalized malaise. He is having difficulty sleeping due to the cough. Fever had been as high as 101? F. He went to [facility] 04/06 with pleuritic pain and mid chest associated with ongoing cough and shortness breath. He denied exertional chest pain, nausea, vomiting, and diarrhea. SpO2 has been as low as 88%. Labs on admission were significant for a WBC count of 11.4, D-dimer 1.59, proBNP 352, troponin less than 0.012. Chest CTA was negative for pulmonary embolus but did show multifocal pneumonia of the lower lobes and lingula. He was given a dose of azithromycin and ceftriaxone. He has been transitioned to room air, PO Augmentin and pulmonology followed during his time here. BC positive in one culur, but likely contaminate. He is stable for d/c home today with finishing 7 day course of AB, and inhalers as recommended per pulmonology. His cough has somewhat improved, lungs are clear and he is feeling a little better everyday. Plan to follow up with PCP and repeat CXR in 6 weeks to ensure pneumonia has cleared. Instructed to ease back into physical activity and work when tolerating. Status at Discharge Functional status at discharge: independent ambulation Overall status at discharge: patient is progressing back to baseline Time Spent with Patient Time attestation: Total time spent providing and/or coordinating discharge services: Exam Const: General: no acute distress and in distress mild and respiratory HENMT: Face/Nose/Sinus: Normal nares present Mouth: Yes moist mucous membranes Eyes: Gene
[2023-04-12 12:27] LABS: Glucose Point of Care 100 mg/dl (65-105)
== END 2023-04-12 13:31 | disposition home or self-care (01) | DRG 193 ==
LOC: ANHED 13:17 → ANH3MEDSUR 13:55 → ANH3MED 14:10 → ANH3MEDSUR 04-15 11:41
PROVIDERS: Nurse Practitioner Family; Physician Assistant; Admitting Provider Internal Medicine; Emergency Provider Nurse Practitioner Family; PCP Family Medicine Adolescent Medicine; Visit Provider Nurse Practitioner
DX: J12.1 Respiratory syncytial virus pneumonia (principal); J96.01 Acute respiratory failure with hypoxia; Q21.12 Patent foramen ovale; J18.9 Pneumonia, unspecified organism; I10 Essential (primary) hypertension; E11.9 Type 2 diabetes mellitus without complications; E78.5 Hyperlipidemia, unspecified; N40.0 Benign prostatic hyperplasia without lower urinary tract symptoms; F41.9 Anxiety disorder, unspecified; Z20.822 Contact with and (suspected) exposure to COVID-19; I25.2 Old myocardial infarction; Z86.73 Personal history of transient ischemic attack (TIA), and cerebral infarction without residual deficits; Z87.891 Personal history of nicotine dependence; Z79.4 Long term (current) use of insulin; Z79.82 Long term (current) use of aspirin
CPT/HCPCS: 36415; 36600; 71046; 71275; 80048; 80053; 82805; 82948; 83036; 83605; 83735; 83880; 84145; 84484; 85025; 85027; 85380; 85610; 85730; 86140; 86738; 87040; 87077; 87081; 87186; 87449; 87636; 87637; 87641; 87899; 93005; 94640; 96365; 99215; 99285; A9270; G0463; J0456; J0696; J1650; J1815; J3370; J7030; Q9967

== ENCOUNTER 2023-06-17 08:49 | Emergency (ER) | payer OTHER, MEDICARE, SELFPAY ==
[2023-06-17 09:08] VITALS: BP 133/71; PULSE 65; RESP 18; TEMP 36.8; O2SAT 96
--- NOTE | 2023-06-17 09:24 | ED.NAVMDI ---
HPI - Nausea/Vomiting/Diarrhea General Chief complaint: Nausea/Vomiting/Diarrhea Stated complaint: diarrhea,nausea Time Seen by Provider: 06/17/23 09:24 Source: patient Mode of arrival: ambulatory Limitations: no limitations History of Present Illness HPI Narrative: 68 yo M c/o diarrhea. Pt took first dose of trulicty infection yesterday morning. Went to event all day and ate donuts and coffee and later had fries and prime rib sandwich. Woke up in the middle of the night and had diarrhea several times. Hasnt had diarrhea for approx. 2 hrs. Feels fine. No bodyaches, chills, fever. No ABD pain. Pt was unaware of trulicity medication side effects until family member told him about them. All systems reviewed and negative except as noted above. Related Data Home Medications Medication Instructions Recorded Confirmed ascorbic acid (vitamin C) 1,000 mg 1 g PO HS 02/24/20 05/28/23 tablet coenzyme Q10 300 mg capsule (Co 300 mg PO HS 02/24/20 05/28/23 Q-10) cyanocobalamin (vitamin B-12) 1,000 mcg PO HS 02/24/20 05/28/23 1,000 mcg tablet,extended release (Vitamin B-12 ER) magnesium 500 mg tablet 500 mg PO HS 02/24/20 05/28/23 multivitamin 1 tablet PO HS 02/24/20 05/28/23 pyridoxine (vitamin B6) 100 mg 100 mg PO HS 02/24/20 05/28/23 tablet (Vitamin B-6) vitamin B complex 2 cap PO HS 02/24/20 05/28/23 cholecalciferol (vitamin D3) 25 25 mcg PO HS 09/12/21 05/28/23 mcg (1,000 unit) capsule apple cider vinegar 600 mg capsule 600 mg PO HS 02/11/23 05/28/23 Allergies Allergy/AdvReac Type Severity Reaction Status Date / Time adenosine Allergy Severe Anaphylactic Verified 06/17/23 09:14 Shock oxycodone [From OxyContin] Allergy Severe Hallucinati Verified 06/17/23 09:14 ng Review of Systems Review of Systems: CONSTITUTIONAL: Denies fever, chills, or sweats. EYES: Denies visual changes, redness, or discharge. ENT: Denies rhinorrhea, congestion, sore throat, or otalgia. CARDIOVASCULAR: Denies chest pain, palpitations, or edema. RESPIRATORY: Denies cough or dyspnea. GASTROINTESTINAL: Denies abdominal pain, nausea, vomiting . Reports diarrhea. GENITOURINARY: Denies dysuria or hematuria. SKIN: Denies rash or itching. MUSCULOSKELETAL: Denies back pain, joint pain, or myalgia. NEUROLOGIC: Denies headache, numbness, or weakness. PSYCHIATRIC: Denies anxiety or depression. All other systems reviewed are negative, except as documented in HPI. [facility] Past Medical History Medical History (Updated 06/17/23 @ 09:41 by Lynnette Chávez NP) Anxiety Benign prostatic hyperplasia COVID-19 COVID-19 Duodenal ulcer Hearing loss Hyperlipidemia Hypertension Insulin dependent type 2 diabetes mellitus Multifocal pneumonia Obesity Patent foramen ovale RSV (respiratory syncytial virus pneumonia) Shingles Transient ischemic attack Surgical History Surgical History History of elbow surgery History of facial surgery injury to face with multiple sutures History of hand surgery Right pinky finger 2011 Left ring finger 1963 per patient questionnaire History of inguinal hernia repair History of tonsillectomy and adenoidectomy Family History Family History Unknown Unknown family medical history patient was adopted Social History Social History Social History: Surrogate medical decision maker: Genie Walton, spouse. Code status: Full code. Smoking packs per day: 1.5 Smoking cigarettes per day: 30.0 Years smoked: 13 Smoking pack-years: 19.50 Smoking status: Former smoker Tobacco type: cigarettes Second hand tobacco smoke exposure: Yes Smoking end date: 03/25/85 Additional smoking assessment comments: Quit Smoking 1985. Alcohol intake: former Substance use: never Do You Feel Safe in your Home?: Yes Lack of Trans
== END 2023-06-17 09:45 | disposition home or self-care (01) ==
PROVIDERS: Emergency Provider Nurse Practitioner Family; PCP Family Medicine Adolescent Medicine
DX: R19.7 Diarrhea, unspecified (principal); T38.3X5A Adverse effect of insulin and oral hypoglycemic [antidiabetic] drugs, initial encounter; N40.0 Benign prostatic hyperplasia without lower urinary tract symptoms; E78.5 Hyperlipidemia, unspecified; I10 Essential (primary) hypertension; E11.9 Type 2 diabetes mellitus without complications; Z79.84 Long term (current) use of oral hypoglycemic drugs; Z79.4 Long term (current) use of insulin; Z86.73 Personal history of transient ischemic attack (TIA), and cerebral infarction without residual deficits; Z86.16 Personal history of COVID-19; E66.9 Obesity, unspecified; Z68.30 Body mass index [BMI] 30.0-30.9, adult
CPT/HCPCS: 99211; G0463

== ENCOUNTER 2023-08-20 18:32 | Emergency (ER) | payer OTHER, MEDICARE, SELFPAY ==
[2023-08-20 18:38] VITALS: BP 131/63; PULSE 65; RESP 16; TEMP 36.7; O2SAT 94
[2023-08-20 19:22] LABS: Basophils Absolute Auto 0.1 K/mm3 (0.0-0.1); Basophils Percent Auto 1.3 % (0.2-1.2); Eosinophils Absolute Auto 0.2 K/mm3 (0-0.3); Eosinophils Percent Auto 3.1 % (0-4.4); Hematocrit 40.4 % (42.0-52.0); Hemoglobin 13.5 g/dL (14.0-18.0); Immature Granulocyte Absolute 0.02 K/mm3 (0.00-0.031); Immature Granulocyte Percent A 0.3 % (0-0.5); Lymphocytes Absolute Auto 2.33 K/mm3 (0.9-3.2); Lymphocytes Percent Auto 38.6 % (18.3-44.2); Mean Corpuscular HGB Conc 33.4 g/dl (32-36); Mean Corpuscular Hemoglobin 31.8 pg (26-34); Mean Corpuscular Volume 95.3 fl (80-100); Monocytes Absolute Auto 0.5 K/mm3 (0.1-0.6); Monocytes Percent Auto 7.6 % (2.6-8.5); Neutrophils Percent Auto 49.1 % (45.5-73.1); Platelet Count Result 198 k/mm3 (150-375); Red Blood Count 4.24 M/mm3 (4.6-6.20); Red Cell Distribution Width 12.1 % (11.5-14.5)
[2023-08-20 19:34] LABS: Alanine Aminotransferase 38 U/L (6-50); Albumin Level 4.2 g/dL (3.5-5.1); Alkaline Phosphatase 73 U/L (38-126); Anion Gap 9 mmol/L (4-12); Aspartate Amino Transferase 43 U/L (17-59); Bilirubin,Total 0.5 mg/dL (0.2-1.3); Blood Urea Nitrogen 13 mg/dL (9-20); Carbon Dioxide 22 mmol/L (22-30); Chloride 108 mmol/L (98-107); Estimated CRCL calculation 78 ml/min; Estimated Glomerular Filt Rate > 60; Glucose 97 mg/dL (65-110); Lipase 277 U/L (23-300); Sodium 139 mmol/L (137-145)
[2023-08-20 19:56] LABS: Appearance Urine Clear (Clear); Bilirubin Urine Negative (Negative); Blood Urine Negative (Negative); Color Urine Yellow (Yellow); Glucose Urine UA Negative (Negative); Ketones Urine Negative (Negative); Leukocyte Esterase Ur Negative LEU/UL (Negative); Nitrate Urine Negative (Negative); Protein Urine Negative (Negative); Specific Grav Ur 1.011 (1.001-1.035); Urobilinogen Urine 0.2 mg/dL (<2.0); pH Urine 5.5 (5.0-9.0)
[2023-08-20 20:00] LABS: Add Urine Microscopic? YES
--- NOTE | 2023-08-20 20:39 | PC.NURSE ---
Pt to desk saying he will go home and go to an urgent care tomorrow. Advised to return if anything worsens or for any new problems. Pt A&Ox4
== END 2023-08-20 20:39 | disposition left against medical advice (07) ==
PROVIDERS: Emergency Provider Student in an Organized Health Care Education/Training Program; PCP Family Medicine Adolescent Medicine
DX: R10.31 Right lower quadrant pain (principal)
CPT/HCPCS: 36415; 80053; 81001; 83690; 85025; 99199

== ENCOUNTER 2023-09-14 14:34 | Emergency (ER) | payer OTHER, MEDICARE, SELFPAY ==
--- NOTE | ~2023-09-14 | CT_ITS ---
EXAMINATION: CT brain wo con DATE: 09/14/2023 15:31 INDICATION: Head injury. Fall. TECHNIQUE: Computed tomography (CT) of the head was performed without intravenous contrast. The mA wa s adjusted according to patient size. Iterative reconstruction technique was employed. The dose-lengt h product was 681.00 mGy-cm. COMPARISON: Head CT 01/07/2020 FINDINGS: There is an old infarct in left frontal lobe. There is an old infarct in left parietal occi pital region. There are scattered areas of low attenuation in the cerebral white matter. There is no intracranial hemorrhage, acute infarction, or abnormal intracranial mass lesion. The ventricles are n ormal in size. There is mild mucosal thickening in the paranasal sinuses. The orbits are normal. The mastoid air cells are normal. IMPRESSION: 1. 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 2. Mild nonspecific cerebral white matter disease, which likely represents chronic small vessel ische kaitlynn disease. Reviewed, dictated and finalized at location E. IMPRESSION: 1. 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 2. Mild nonspecific cerebral white matter disease, which likely represents health care facility administrator luis small vessel ischemic disease.
--- NOTE | ~2023-09-14 | XR_ITS ---
EXAMINATION: XR chest 1V DATE: 09/14/2023 15:35 INDICATION: Syncope. TECHNIQUE: A single frontal view of the chest was obtained. COMPARISON: Chest 2 views 04/06/2023 FINDINGS: There is no pneumonia, pleural effusion, or pneumothorax. The heart size is normal. IMPRESSION: 1. No acute cardiopulmonary disease. Reviewed, dictated and finalized at location E.
--- NOTE | ~2023-09-14 | CT_ITS ---
EXAMINATION: CT cervical spine wo con DATE: 09/14/2023 15:32 INDICATION: Neck injury. Fall. TECHNIQUE: Computed tomography (CT) of the cervical spine was performed without intravenous contrast. Automated exposure control and iterative reconstruction technique were employed. The dose-length pro duct was 435.13 mGy-cm. COMPARISON: CT cervical spine 03/09/2013 FINDINGS: There is 17 degrees levoscoliosis of cervical spine. Vertebral body heights are normal. Int ervertebral disc heights are normal. The following disc levels are specifically discussed: C2-C3: There is mild bilateral uncovertebral joint osteoarthritis. There is mild bilateral facet join t osteoarthritis. There is no neural foraminal stenosis. There is mild central canal stenosis. C3-C4: There is mild bilateral uncovertebral joint osteoarthritis. There is mild bilateral facet join t osteoarthritis. There is mild left neural foraminal stenosis. There is no central canal stenosis. C4-C5: There is no uncovertebral joint osteoarthritis. There is mild left facet joint osteoarthritis. There is no neural foraminal stenosis. There is no central canal stenosis. C5-C6: There is mild bilateral uncovertebral joint osteoarthritis. There is mild bilateral facet join t osteoarthritis. There is no neural foraminal stenosis. There is no central canal stenosis. C6-C7: There is no uncovertebral joint osteoarthritis. There is mild bilateral facet joint osteoarthr itis. There is no neural foraminal stenosis. There is no central canal stenosis. C7-T1: There is no uncovertebral joint osteoarthritis. There is mild bilateral facet joint osteoarthr itis. There is no neural foraminal stenosis. There is no central canal stenosis. IMPRESSION: 1. No fracture. 2. Mild cervical spondylosis. 3. Cervical levoscoliosis. Reviewed, dictated and finalized at location E.
[2023-09-14 14:37] VITALS: BP 116/67; PULSE 71; RESP 19; TEMP 36.7; O2SAT 98
--- NOTE | 2023-09-14 14:40 | ECG_ITS ---
Test Date: 2023-09-14 14:47:30 Measurements Intervals [place] Rate: 69 P: 43 TN: 219 QRS: -4 QRSD: 113 T: 26 QT: 398 QTc: 427 Interpretive Statements SINUS RHYTHM WITH FIRST DEGREE AV BLOCK OTHERWISE NORMAL ELECTROCARDIOGRAM No previous ECG available for comparison Electronically Signed On 09-15-2023 08:27:29 CDT by Omar Rojo M.D.
--- NOTE | 2023-09-14 15:04 | ED.GENADULT ---
HPI - General Adult General Chief complaint: Environmental Exposure Stated complaint: heat exhaustion, syncope, headache Time Seen by Provider: 09/14/23 14:42 Source: patient, family and EMS Mode of arrival: EMS Limitations: no limitations History of Present Illness HPI narrative: this is a 68-year-old male With PMH of T2 dm, TIA, who presents to the ED via EMS for chief complaint of syncopal episode today. Patient was working outside for many hours in the heat doing yd work. Patient's found him laying in the garage unconscious and unresponsive. patient's states that she found him lying on the garage and it must better 10 minutes that he was out. States that he was very hot so she got a bucket of water and called EMS. per EMS he received 1 L LR. Blood sugar normal. Patient states that he remembers leaning over to take his shoes off but does not recall anything else. He reports diffuse cramping to all his extremities. States he had 1 water and 1 beer today while working. He thinks that he is very dehydrated. Denies any chest pain or shortness of breath today. denies neck pain, back pain, abdominal pain, cough or recent illness. Denies numbness, weakness, vision loss. Related Data Home Medications Medication Instructions Recorded Confirmed ascorbic acid (vitamin C) 1,000 mg 1 g PO HS 02/24/20 09/11/23 tablet coenzyme Q10 300 mg capsule (Co 300 mg PO HS 02/24/20 09/11/23 Q-10) cyanocobalamin (vitamin B-12) 1,000 mcg PO HS 02/24/20 09/11/23 1,000 mcg tablet,extended release (Vitamin B-12 ER) magnesium 500 mg tablet 500 mg PO HS 02/24/20 09/11/23 multivitamin 1 tablet PO HS 02/24/20 09/11/23 pyridoxine (vitamin B6) 100 mg 100 mg PO HS 02/24/20 09/11/23 tablet (Vitamin B-6) vitamin B complex 2 cap PO HS 02/24/20 09/11/23 cholecalciferol (vitamin D3) 25 25 mcg PO HS 09/12/21 09/11/23 mcg (1,000 unit) capsule apple cider vinegar 600 mg capsule 600 mg PO HS 02/11/23 09/11/23 Allergies Allergy/AdvReac Type Severity Reaction Status Date / Time adenosine Allergy Severe Anaphylactic Verified 09/11/23 08:40 Shock oxycodone [From OxyContin] Allergy Severe Hallucinati Verified 09/11/23 08:40 ng Review of Systems Review of Systems: All systems as dictated in [facility] Past Medical History Medical History Anxiety Benign prostatic hyperplasia COVID-19 COVID-19 Duodenal ulcer Hearing loss Hyperlipidemia Hypertension Insulin dependent type 2 diabetes mellitus Multifocal pneumonia Obesity Patent foramen ovale RSV (respiratory syncytial virus pneumonia) Shingles Transient ischemic attack Surgical History Surgical History History of elbow surgery History of facial surgery injury to face with multiple sutures History of hand surgery Right pinky finger 2010 Left ring finger 1963 per patient questionnaire History of inguinal hernia repair History of tonsillectomy and adenoidectomy Family History Family History Unknown Unknown family medical history patient was adopted Social History Social History Social History: Surrogate medical decision maker: Genie Walton, spouse. Code status: Full code. Smoking packs per day: 1.5 Smoking cigarettes per day: 30.0 Years smoked: 13 Smoking pack-years: 19.50 Smoking status: Former smoker Tobacco type: cigarettes Second hand tobacco smoke exposure: Yes Smoking end date: 03/25/85 Additional smoking assessment comments: Quit Smoking 1985. Alcohol intake: former Substance use: never Do You Feel Safe in your Home?: Yes Lack of Transportation: No Lack of Food: Never True Current Housing: I Have Housing Concerned About Future Housing: No Difficulty Paying Gas/Electric Bills: No Diff
[2023-09-14] MEDS: SODIUM CHLORIDE 0.9% IV 1,000 ML 999 ML IV CONT (15:06)
[2023-09-14 15:10] LABS: Basophils Absolute Auto 0.1 K/mm3 (0.0-0.1); Basophils Percent Auto 0.8 % (0.2-1.2); Eosinophils Percent Auto 0.5 % (0-4.4); Hematocrit 36.4 % (42.0-52.0); Hemoglobin 12.9 g/dL (14.0-18.0); Immature Granulocyte Absolute 0.01 K/mm3 (0.00-0.031); Immature Granulocyte Percent A 0.2 % (0-0.5); Lymphocytes Absolute Auto 1.38 K/mm3 (0.9-3.2); Lymphocytes Percent Auto 21.2 % (18.3-44.2); Mean Corpuscular HGB Conc 35.4 g/dl (32-36); Mean Corpuscular Hemoglobin 32.6 pg (26-34); Mean Corpuscular Volume 91.9 fl (80-100); Mean Platelet Volume 9.8 fl (7.4-10.4); Monocytes Absolute Auto 0.4 K/mm3 (0.1-0.6); Monocytes Percent Auto 5.7 % (2.6-8.5); Neutrophils Absolute Auto 4.7 K/mm3 (1.3-6.7); Neutrophils Percent Auto 71.6 % (45.5-73.1); Platelet Count Result 197 k/mm3 (150-375); Red Blood Count 3.96 M/mm3 (4.6-6.20); Red Cell Distribution Width 12.2 % (11.5-14.5); White Blood Count 6.5 K/mm3 (4.5-10.0)
[2023-09-14] MEDS: ONDANSETRON INJ 4 MG/2 ML VIAL IV PUSH (15:12)
[2023-09-14] MEDS: HYDROmorphone HCL INJ (*CRX) 1 MG/ML SYR 0.5 MG IV PUSH (15:12)
[2023-09-14 15:20] LABS: Alanine Aminotransferase 33 U/L (6-50); Albumin Level 4.5 g/dL (3.5-5.1); Alkaline Phosphatase 53 U/L (38-126); Anion Gap 12 mmol/L (4-12); Aspartate Amino Transferase 44 U/L (17-59); Blood Urea Nitrogen 16 mg/dL (9-20); Calcium 9.5 mg/dL (8.4-10.2); Carbon Dioxide 19 mmol/L (22-30); Chloride 109 mmol/L (98-107); Creatine Kinase 155 U/L (55-170); Estimated CRCL calculation 54 ml/min; Estimated Glomerular Filt Rate 43; Glucose 101 mg/dL (65-110); Potassium 4.1 mmol/L (3.4-5.0); Sodium 140 mmol/L (137-145)
[2023-09-14 15:33] LABS: Troponin I < 0.012 ng/mL (0.000-0.034)
[2023-09-14] MEDS: SODIUM CHLORIDE 0.9% IV 500 ML 999 ML IV CONT (16:52)
[2023-09-14 17:55] LABS: Appearance Urine Clear (Clear); Bilirubin Urine Negative (Negative); Blood Urine Negative (Negative); Color Urine Yellow (Yellow); Glucose Urine UA Negative (Negative); Ketones Urine Trace mg/dL (Negative); Leukocyte Esterase Ur Negative LEU/UL (Negative); Nitrate Urine Negative (Negative); Protein Urine Negative (Negative); Specific Grav Ur 1.007 (1.001-1.035); Urobilinogen Urine 0.2 mg/dL (<2.0); pH Urine 8.5 (5.0-9.0)
[2023-09-14 17:58] LABS: Add Urine Microscopic? NO
== END 2023-09-14 18:17 | disposition home or self-care (01) ==
PROVIDERS: Emergency Provider Physician Assistant; PCP Family Medicine Adolescent Medicine
DX: R55 Syncope and collapse (principal); I10 Essential (primary) hypertension; E78.5 Hyperlipidemia, unspecified; E11.9 Type 2 diabetes mellitus without complications; E66.9 Obesity, unspecified; Z68.30 Body mass index [BMI] 30.0-30.9, adult; N40.0 Benign prostatic hyperplasia without lower urinary tract symptoms; Z86.16 Personal history of COVID-19; Z86.73 Personal history of transient ischemic attack (TIA), and cerebral infarction without residual deficits; Z87.01 Personal history of pneumonia (recurrent); Z87.891 Personal history of nicotine dependence; Y93.H2 Activity, gardening and landscaping; Z79.82 Long term (current) use of aspirin; Z79.84 Long term (current) use of oral hypoglycemic drugs; Z79.85 Long-term (current) use of injectable non-insulin antidiabetic drugs; Z79.899 Other long term (current) drug therapy; I44.0 Atrioventricular block, first degree; R90.82 White matter disease, unspecified; M47.812 Spondylosis without myelopathy or radiculopathy, cervical region; X30.XXXA Exposure to excessive natural heat, initial encounter
CPT/HCPCS: 36415; 70450; 71045; 72125; 80053; 81003; 82550; 84484; 85025; 93005; 96361; 96374; 96375; 99284; J1170; J2405; J7030; J7040

== ENCOUNTER 2023-10-25 15:45 | Outpatient (CLI) | payer OTHER, MEDICARE, SELFPAY ==
--- NOTE | ~2023-10-25 | MR_ITS ---
EXAMINATION: MR lumbar spine wo con DATE: 10/25/2023 16:19 INDICATION: Bilateral sciatica. TECHNIQUE: Magnetic resonance imaging (MRI) of the lumbar spine was performed without intravenous con trast. Sequences included sagittal T2-weighted FSE, sagittal T2-weighted FS FSE, sagittal T1-weighted FSE, and axial T2-weighted FSE. COMPARISON: Lumbar spine MRI 10/09/2021 FINDINGS: There is an 8 degrees levocurvature of lumbar spine. There is 3 mm anterolisthesis of L4 on L5. Vertebral body heights are normal. There is mildly decreased disc height at L3-L4 and L4-L5 and moderately decreased disc height at L5-S1. The distal spinal cord signal intensity is normal. The con us medullaris is at T12-L1. The following disc levels are specifically discussed: L1-L2: The disc is bulging. There is moderate bilateral facet joint osteoarthritis. There is mild dimas ateral neural foraminal stenosis. There is mild central canal stenosis. L2-L3: The disc is bulging. There is mild right and moderate left facet joint osteoarthritis. There i s moderate bilateral neural foraminal stenosis. There is mild central canal stenosis. L3-L4: The disc is bulging and has an annular fissure. There is severe bilateral facet joint osteoart hritis. There is moderate bilateral neural foraminal stenosis. There is mild central canal stenosis. L4-L5: The disc is bulging and has an annular fissure. There is severe bilateral facet joint osteoart hritis. There is moderate bilateral neural foraminal stenosis. There is mild central canal stenosis. L5-S1: The disc is bulging and has an annular fissure. There is severe bilateral facet joint osteoart hritis. There is moderate bilateral neural foraminal stenosis. There is mild central canal stenosis. IMPRESSION: 1. Moderate lumbar spondylosis, stable from 10/09/2021. Reviewed, dictated and finalized at location A.
== END 2023-10-25 15:46 ==
PROVIDERS: PCP Family Medicine Adolescent Medicine; Visit Provider Family Medicine Adolescent Medicine
DX: M54.31 Sciatica, right side (principal); M54.32 Sciatica, left side; M47.896 Other spondylosis, lumbar region
CPT/HCPCS: 72148

== ENCOUNTER 2023-12-09 08:49 | Outpatient (CLI) | payer OTHER, MEDICARE, SELFPAY ==
--- NOTE | ~2023-12-09 | XR_ITS ---
EXAMINATION: XR hip RT min 2V, XR femur RT min 2V DATE: 12/09/2023 09:08 INDICATION: Right hip pain radiating down the thigh TECHNIQUE: 1. Anteroposterior and frog-leg lateral views of the right hip were obtained. 2. Anteroposterior and lateral views of the right femur were obtained on overlapping proximal and dis sadi images. COMPARISON: Right hip radiographs dated 03/09/2013 FINDINGS: Alignment remains normal. No fracture. There is decreased anterosuperior right femoral head neck offs et. No significant change in mild osteoarthritis at the right hip. Joint spaces appear normal at the right knee with no knee joint effusion. Soft tissues are unremarkable. IMPRESSION: 1. Mild right hip osteoarthritis. Reviewed, dictated and finalized at location B. IMPRESSION: 1. Mild right hip osteoarthritis.
== END 2023-12-09 08:50 | disposition home or self-care (01) ==
LOC: MICIMG 08:51
PROVIDERS: PCP Family Medicine Adolescent Medicine; Visit Provider Family Medicine Adolescent Medicine
DX: M16.11 Unilateral primary osteoarthritis, right hip (principal)
CPT/HCPCS: 73502; 73552

== ENCOUNTER 2023-12-25 11:59 | Outpatient (CLI) | payer OTHER, MEDICARE, SELFPAY ==
--- NOTE | ~2023-12-25 | MR_ITS ---
EXAMINATION: MR femur RT wo con DATE: 12/25/2023 12:50 INDICATION: Right thigh pain. TECHNIQUE: Magnetic resonance imaging (MRI) of the right femur was performed without intravenous cont rast. COMPARISON: Right femur radiographs 12/09/2023 FINDINGS: Alignment is normal. No fracture. The musculature is normal. There is mild subcutaneous rogerio ma in the thigh. IMPRESSION: 1. No etiology for the patient's symptoms. Reviewed, dictated and finalized at location A.
== END 2023-12-25 12:00 | disposition home or self-care (01) ==
LOC: MICIMG 12:00
PROVIDERS: PCP Family Medicine Adolescent Medicine; Visit Provider Family Medicine Adolescent Medicine
DX: M79.651 Pain in right thigh (principal)
CPT/HCPCS: 73718

== ENCOUNTER 2024-01-20 13:18 | Outpatient (CLI) | payer OTHER, MEDICARE, SELFPAY ==
--- NOTE | ~2024-01-20 | XR_ITS ---
EXAMINATION: XR lg joint inject/asp w image DATE: 01/20/2024 14:32 INDICATION: Right hip osteoarthritis TECHNIQUE: A time-out was performed to verify the patient's name, date of , and procedure to b e performed. The procedure including the risks, benefits, and alternatives was discussed with the pat ient. Risks discussed included bleeding and infection. The patient understood the risks and agreed to proceed. The skin overlying the right hip joint was prepped and draped in usual sterile fashion. A nesthetic was administered with 1% lidocaine subcutaneously. A 22 G needle was advanced under fluoro scopic guidance into the joint. Injection of 1 mL of Omnipaque 240 confirmed intra-articular positio n of the needle. Subsequently, injectate consisting of 3 mL of a 2:1 mixture of 0.5% bupivacaine: 80 mg/mL Depo-Medrol for a total dosage of 80 mg Depo-Medrol was instilled. Washout of contrast was see n confirming intra-articular administration. The needle was removed and the entry site was cleaned an d dressed. There were no immediate complications. Fluoroscopy exposure time was 0.1 minutes. The tot al number of images was 2. Total DAP was 0.786 Gycm^2 FINDINGS: Real-time fluoroscopy demonstrates the needle in the right hip joint. Patient's pain prior to procedure:11/01. Patient's pain following the procedure: 05/04. IMPRESSION: 1. Successful right hip joint injection of local anesthetic and steroid with decrease in the patient' s presenting pain. Reviewed, dictated and finalized at location A. IMPRESSION: 1. Successful right hip joint injection of local anesthetic and steroid with de crease in the patient's presenting pain.
== END 2024-01-20 13:19 | disposition home or self-care (01) ==
PROVIDERS: PCP Family Medicine Adolescent Medicine; Visit Provider Orthopaedic Surgery
DX: M16.11 Unilateral primary osteoarthritis, right hip (principal)
CPT/HCPCS: 20610; 77002; J1010; Q9966

== ENCOUNTER 2024-03-04 17:14 | Emergency (ER) | payer OTHER, MEDICARE, SELFPAY ==
--- NOTE | ~2024-03-04 | XR_ITS ---
EXAMINATION: XR ankle LT min 3V DATE: 03/04/2024 18:21 INDICATION: Left ankle injury and pain. TECHNIQUE: 4 views of left ankle were obtained. COMPARISON: Left foot radiographs 02/02/2022 FINDINGS: There is an avulsion fracture of distal tip of medial malleolus. There is heterotopic ossif ication distal to lateral malleolus. There is mild midfoot osteoarthritis. There is an enthesophyte a t plantar aspect of calcaneal tuberosity. Ankle soft tissue swelling is noted. IMPRESSION: 1. Avulsion fracture of distal tip of medial malleolus. 2. Heterotopic ossification distal to lateral malleolus, which may be an acute fracture or a chronic finding. Reviewed, dictated and finalized at location A. S TECHNOLOGIST
[2024-03-04 17:44] VITALS: BP 106/75; PULSE 58; RESP 16; TEMP 36.4; O2SAT 100
--- NOTE | 2024-03-04 18:05 | ED_ITS ---
HPI - Extremity Injury (Lower) General Chief Complaint: Extremity Injury, Lower Stated Complaint: fall (lt ankle injury) Time Seen by Provider: 03/04/24 17:59 Source: patient, family () and RN notes reviewed Mode of arrival: wheelchair Limitations: no limitations History of Present Illness HPI Narrative: Patient presents today complaining of left ankle pain. He was decorating his [place] tree when he fell 4 feet off a ladder twisting his ankle. Reports some tingling in his 1st toe. Currently rates his pain 8/10. He has been nonambulatory since the injury. Denies pain to the foot. He has not tried any [id number] interventions prior to arrival. Denies any back pain. Related Data Home Medications ?Medication ?Instructions ?Recorded ?Confirmed ?Last Taken ?Type ascorbic acid (vitamin C) 1,000 mg 1 g PO HS 02/24/20 02/05/24 04/05/23 21:00 History tablet coenzyme Q10 300 mg capsule (Co 300 mg PO HS 02/24/20 02/05/24 04/05/23 21:00 History Q-10) cyanocobalamin (vitamin B-12) 1,000 mcg PO HS 02/24/20 02/05/24 04/05/23 21:00 History 1,000 mcg tablet,extended release (Vitamin B-12 ER) multivitamin 1 tablet PO HS 02/24/20 02/05/24 04/05/23 21:00 History pyridoxine (vitamin B6) 100 mg 100 mg PO HS 02/24/20 02/05/24 04/05/23 21:00 History tablet (Vitamin B-6) vitamin B complex 2 cap PO HS 02/24/20 02/05/24 04/05/23 21:00 History cholecalciferol (vitamin D3) 25 25 mcg PO HS 09/12/21 02/05/24 04/05/23 21:00 History mcg (1,000 unit) capsule apple cider vinegar 600 mg capsule 600 mg PO HS 02/11/23 02/05/24 04/05/23 21:00 History Allergies Allergy/AdvReac Type Severity Reaction Status Date / Time adenosine Allergy Severe Anaphylactic Verified 03/04/24 17:47 Shock oxycodone (From OxyContin) Allergy Severe Hallucinati Verified 03/04/24 17:47 ng Review of Systems Review of Systems: CONSTITUTIONAL: Denies body aches, fever, chills, or sweats. EYES: Denies visual changes, redness, or discharge. ENT: Denies rhinorrhea, congestion, sore throat, or otalgia. CARDIOVASCULAR: Denies chest pain, palpitations, or edema. RESPIRATORY: Denies cough or dyspnea. GASTROINTESTINAL: Denies abdominal pain, nausea, vomiting, or diarrhea. GENITOURINARY: Denies dysuria or hematuria. SKIN: Denies rash, itching, or wounds. MUSCULOSKELETAL: Denies back pain. + left ankle injury NEUROLOGIC: Denies headache, numbness, tingling, or weakness. PSYCH: Denies depression or anxiety. [facility] Past Medical History Medical History RSV (respiratory syncytial virus pneumonia) Shingles Duodenal ulcer Transient ischemic attack Patent foramen ovale Benign prostatic hyperplasia Insulin dependent type 2 diabetes mellitus Multifocal pneumonia COVID-19 COVID-19 Hearing loss Obesity Hyperlipidemia Hypertension Anxiety Surgical History Surgical History History of inguinal hernia repair History of elbow surgery History of tonsillectomy and adenoidectomy History of hand surgery Right pinky finger 2011 Left ring finger 1963 per patient questionnaire History of facial surgery injury to face with multiple sutures Family History Family History Unknown Unknown family medical history patient was adopted Social History Social History Social History: Surrogate medical decision maker: Geniezuhair Walton, spouse. Code status: Full code. Smoking packs per day: 1.5 Smoking cigarettes per day: 30.0 Years smoked: 13 Smoking pack-years: 19.50 Smoking status: Former smoker Tobacco type: cigarettes Second hand tobacco smoke exposure: Yes Smoking end date: 03/25/85 Additional smoking assessment comments: Quit Smoking 1985. Alcohol intake: former Substance use: never Do You Feel Safe in your Home?: Yes Lack of Transportation: No Lack of Food: Never True Current Housing: I Have Housing Concerned About Future Housing: No Difficulty Paying Gas/Electric Bills: No Difficulty Paying for Meds: YES Currently Unemployed: No Education: High School Diploma/GED Difficulty w/ Childcare or Family Care: No Living arrangements: with family Additional living arrangements comments: Lives with spouse in [place]. He has 3 children. Occupation/Education: occupation Additional occupation/education comments: [employer] Spiritual care concerns: No Agree to blood products: Yes Comments At time of signature, I have reviewed and agree with nursing past medical, surgical, social and family history unless otherwise noted. Please see nursing chart for further information. There is no relevant family history pertinent to the presenting complaint Exam Narrative: GENERAL: Well-appearing, well-nourished, and in no acute distress. HEAD: Normocephalic, atraumatic. EYES: EOMI. No redness or drainage. Conjunctivae normal. ENT: Mucous membranes pink and moist. NECK: Normal AROM. CHEST: No respiratory distress. EXTREMITIES: Left ankle: Tenderness and mild to moderate edema and ecchymosis to the medial and lateral malleolus. No tenderness to the foot. Distal sensation intact all 5 toes. Capillary refill normal. Pedal pulse normal. Full range of motion to toes. Somewhat decreased range of motion of the ankle due to pain. SKIN: Warm, dry, no rash. Capillary refill normal. Normal skin turgor. NEURO: No focal deficits. Alert and oriented x3. Gait steady. PSYCH: Normal affect. No signs of depression or anxiety. Course Course Level of Care: Express Care Visit Vital Signs Vital signs: Vital Signs Temperature 97.5 F L 03/04/24 17:44 Pulse Rate 58 L 03/04/24 17:44 Respiratory Rate 16 03/04/24 17:44 Blood Pressure 106/75 03/04/24 17:44 Pulse Oximetry 100 03/04/24 17:44 Oxygen Delivery Room Air 03/04/24 17:44 Temperature 97.5 F L 03/04/24 17:44 Pulse Rate 58 L 03/04/24 17:44 Respiratory Rate 16 03/04/24 17:44 Blood Pressure 106/75 03/04/24 17:44 Pulse Oximetry 100 03/04/24 17:44 Oxygen Delivery Room Air 03/04/24 17:44 Reviewed MDM - Extremity Injury (Lower) MDM Narrative Medical decision making narrative: X-ray shows avulsion fracture tip of medial malleolus as well as an ossification to the area of the lateral malleolus which may be acute or chronic. Jose wrap applied. Recommend conservative treatment with PCP or orthopedic follow-up in 7-10 days if symptoms are not starting to improve. Patient and agree with plan. Anticipatory guidance given. Differential Diagnosis Differential diagnosis: Likely ankle sprain and strain and ankle fracture Imaging Data Radiologist's impression: ITS Impressions Ankle X-Ray 03/04/24 18:24 IMPRESSION: 1. Avulsion fracture of distal tip of medial malleolus. 2. Heterotopic ossification distal to lateral malleolus, which may be an acute fracture or a chronic finding. Critical Care Time Critical Care Time Critical Care Time: No Discharge Plan Discharge Clinical Impression: Avulsion fracture of left ankle Patient Disposition: Home, Self-Care Condition: Stable Instructions: Ankle Sprain (DC), Avulsion Fracture (ED) Additional Instructions: Your x-ray shows a chip fracture off the inside of your ankle. Elevate and ice the ankle. Wear the Jose wrap for comfort and stability. Please follow-up with your PCP or orthopedic physician in 7-10 days if symptoms are not starting to improve. Patient Language: Bruneian Prescriptions: No Action cholecalciferol (vitamin D3) 25 mcg (1,000 unit) capsule 25 mcg PO HS apple cider vinegar 600 mg capsule 600 mg PO HS finasteride 5 mg tablet 5 mg PO DAILY Qty: 90 0RF sennosides [Natural Senna Laxative] 8.6 mg tablet 8.6 mg PO DAILY PRN (Reason: constipation) Qty: 30 0RF simvastatin 40 mg tablet 40 mg PO HS Qty: 90 2RF multivitamin Tablet 1 tablet PO HS cyanocobalamin (vitamin B-12) [Vitamin B-12] 1,000 mcg Tablet Extended Release 1,000 mcg PO HS ascorbic acid (vitamin C) 1,000 mg Tablet 1 g PO HS pyridoxine (vitamin B6) [Vitamin B-6] 100 mg Tablet 100 mg PO HS vitamin B complex Capsule 2 cap PO HS Co Q-10 300 mg Capsule 300 mg PO HS omeprazole 20 mg capsule,delayed release(DR/EC) See Rx Instructions .ROUTE .COMPLEX Qty: 90 2RF Dose Instruction: TAKE 1 CAPSULE BY MOUTH EVERY DAY Rx Instructions: TAKE 1 CAPSULE BY MOUTH EVERY DAY lisinopril 40 mg tablet 40 mg PO HS Qty: 90 2RF tamsulosin 0.4 mg capsule 0.8 mg PO HS Qty: 180 2RF trazodone 100 mg tablet 100 mg PO QHS PRN (Reason: sleep) Qty: 90 2RF tadalafil 5 mg tablet 5 mg PO DAILY Qty: 90 2RF glimepiride 1 mg tablet See Rx Instructions .ROUTE .COMPLEX Qty: 90 1RF Dose Instruction: TAKE 1 TABLET BY MOUTH EVERY DAY Rx Instructions: TAKE 1 TABLET BY MOUTH EVERY DAY diazepam 5 mg tablet See Rx Instructions PO QHS PRN (Reason: leg cramps) Qty: 140 1RF Rx Instructions: Take 1 or 2 orally every day at bedtime PRN; aspirin 81 mg tablet,delayed release (DR/EC) See Rx Instructions .ROUTE .COMPLEX Qty: 90 2RF Dose Instruction: TAKE 1 TABLET BY MOUTH EVERYDAY AT BEDTIME Rx Instructions: TAKE 1 TABLET BY MOUTH EVERYDAY AT BEDTIME escitalopram oxalate 20 mg tablet 20 mg PO DAILY Qty: 90 2RF diclofenac sodium 75 mg tablet,delayed release (DR/EC) 75 mg PO BID Qty: 180 1RF gabapentin 300 mg capsule 300 mg PO BID Qty: 60 1RF pioglitazone 30 mg tablet 30 mg PO DAILY Qty: 90 1RF amlodipine 5 mg tablet See Rx Instructions .ROUTE .COMPLEX Qty: 90 1RF Dose Instruction: 5 MG ORALLY DAILY Rx Instructions: 5 MG ORALLY DAILY Follow-up/Referrals: Jagdeep Campbell MD [Physician] - Howard Marlow MD [Primary Care Provider] - Time of Disposition: 18:49
== END 2024-03-04 19:01 | disposition home or self-care (01) ==
PROVIDERS: Emergency Provider Nurse Practitioner; PCP Family Medicine Adolescent Medicine
DX: S82.52XA Displaced fracture of medial malleolus of left tibia, initial encounter for closed fracture (principal); W11.XXXA Fall on and from ladder, initial encounter; Z87.891 Personal history of nicotine dependence; N40.0 Benign prostatic hyperplasia without lower urinary tract symptoms; E11.9 Type 2 diabetes mellitus without complications; Z79.4 Long term (current) use of insulin; I10 Essential (primary) hypertension; E78.5 Hyperlipidemia, unspecified; E66.9 Obesity, unspecified; Z86.73 Personal history of transient ischemic attack (TIA), and cerebral infarction without residual deficits; Z86.16 Personal history of COVID-19; Z68.29 Body mass index [BMI] 29.0-29.9, adult
CPT/HCPCS: 73610; 99204; G0463

== ENCOUNTER 2024-05-14 08:46 | Outpatient (CLI) | payer OTHER, MEDICARE, SELFPAY ==
--- NOTE | 2024-05-14 08:51 | EST_ITS ---
Patient Info Name: Anthony Walton Age: 68 years : 1955 Gender: Male Ht: 75 in Wt: 237 lbs BSA: 2.41 m2 Exam Date: 05/14/2024 9:08 AM Exam Location: Echo Lab Patient Status: Outpatient Admit Date: 05/14/2024 Staff Ordering Physician: Brian Gonzalez DO Attending Provider: Brian Gonzalez DO Exercise Technologist: Beena Parada RDCS Exercise Physician: Brian Gonzalez DO Exam Type: CA stress test treadmill Study Info Indications R06.09 - Other forms of dyspnea A treadmill exercise stress test was performed. Summary 1. 1. Negative Abelino exercise stress test for ischemic ST changes by ECG criteria. However, patient achieved only 83% MPHR for age group which reduces sensitivity of the test. 2. 2. Reduced functional capacity, achieving 7 METs of workload. 3. 3. Appropriate HR response to exercise. 4. 4. Appropriate HR recovery at 1 minute post exercise. 5. 5. No imaging with stress testing. 6. 6. Patient informed of the above results. Protocol: Abelino Stress ECG Details Stage: REST Duration (min): 0 min : 55 sec Speed (mph): 0.0 Grade (%): 0 HR (bpm): 51 SBP (mmHg): 131 DBP (mmHg): 75 METS: --- Stage: REST Duration (min): 4 min : 36 sec Speed (mph): 0.0 Grade (%): 0 HR (bpm): 50 SBP (mmHg): 131 DBP (mmHg): 75 METS: --- Stage: STAGE 1 Duration (min): 1 min : 0 sec Speed (mph): 1.7 Grade (%): 10 HR (bpm): 80 SBP (mmHg): 131 DBP (mmHg): 75 METS: --- Stage: STAGE 1 Duration (min): 2 min : 0 sec Speed (mph): 1.7 Grade (%): 10 HR (bpm): 97 SBP (mmHg): 131 DBP (mmHg): 75 METS: --- Stage: STAGE 1 Duration (min): 3 min : 0 sec Speed (mph): 1.7 Grade (%): 10 HR (bpm): 104 SBP (mmHg): 197 DBP (mmHg): 48 METS: --- Stage: STAGE 2 Duration (min): 1 min : 0 sec Speed (mph): 2.5 Grade (%): 12 HR (bpm): 112 SBP (mmHg): 197 DBP (mmHg): 48 METS: --- Stage: STAGE 2 Duration (min): 2 min : 0 sec Speed (mph): 2.5 Grade (%): 12 HR (bpm): 120 SBP (mmHg): 146 DBP (mmHg): 47 METS: --- Stage: STAGE 2 Duration (min): 3 min : 0 sec Speed (mph): 2.5 Grade (%): 12 HR (bpm): 127 SBP (mmHg): 146 DBP (mmHg): 47 METS: --- Stage: RECOVERY Duration (min): 0 min : 59 sec Speed (mph): 0.0 Grade (%): 0 HR (bpm): 112 SBP (mmHg): 131 DBP (mmHg): 52 METS: --- Stage: RECOVERY Duration (min): 1 min : 59 sec Speed (mph): 0.0 Grade (%): 0 HR (bpm): 94 SBP (mmHg): 131 DBP (mmHg): 52 METS: --- Stage: RECOVERY Duration (min): 2 min : 59 sec Speed (mph): 0.0 Grade (%): 0 HR (bpm): 81 SBP (mmHg): 143 DBP (mmHg): 70 METS: --- Stage: RECOVERY Duration (min): 3 min : 11 sec Speed (mph): 0.0 Grade (%): 0 HR (bpm): 81 SBP (mmHg): 143 DBP (mmHg): 70 METS: --- Rest HR: 50 bpm Peak HR: 127 bpm Rest Sys BP: 131 mmHg Peak Sys BP: 197 mmHg Max Pred HR: 153 bpm % Max Pred HR: 83 % Target HR: 130 bpm Max RPP: 25,019 bpm*mmHg Boo Score: 1 Termination Reason: Maximal effort/unable to continue Cardiac Symptoms: Shortness of breath, Tingling Max ST Seg Deviation: 1.00 mm Total Time: 6 min : 0 sec Rest Soliman BP: 75 mmHg Peak Soliman BP: 48 mmHg Angina Score: None Total METS: 7.1 Resting ECG Sinus bradycardia. Stress ECG No ST changes. Arrhythmias None. Report Signatures
--- OUTSIDE RECORDS SUMMARY | 2024-05-14 08:55 | XMS_ITS ---
Author Organization [facility], Address [address] [address] Care Team Providers Care Sound Mixer Name Role Phone Howard Marlow Primary Care Provider Alex Anthony Unavailable [phone] REASON FOR VISIT Inj//schedule PROBLEMS Problem Type ICD Code Onset Dates Problem Status W/U Status Risk SNOMED Code Notes Problem Lumbar radiculopathy (M54.16) Active confirmed Lumbar radiculopathy (236856532) PROCEDURES Procedure Date Ordered Date Performed Result Body Sit e Lumbar Transforaminal Epidur al Steroid Injection 02/19/2024 02/24/2024 N/A Encounters Encounter Location Date Provider Diagnosis [facility] [address] [facility] [address] [place] [address] 02/19/2024 Alex Lama Lumbar radiculopathy M54.16 ASSESSMENTS Encounter Date Diagnosis Assessment Notes Treatment Notes Treatment Clinical Notes 02/19/2024 Lumbar radiculopathy (ICD-10 - M54.16) PLAN OF TREATMENT No Information
--- OUTSIDE RECORDS SUMMARY | 2024-05-14 08:55 | XMS_ITS | Clinical Summary ---
Author Organization [facility] Address [facility] [place] [address] Care Team Providers Care Communications Executive Name Role Phone Howard Marlow MD Primary Care Provider [phone]- [phone] Allergies Active Allergy Reactions Criticality Noted Date Comments Adenosine Anaphylaxis High 06/20/2023 Heart stopped for 20 seconds Oxycodone Hallucinations 06/20/2023 Medications No known medications Social History Tobacco Use Types Packs/Day Years Used Date Smoking Tobacco: Never Smokeless Tobacco: Never Tobacco Cessation:Counseling Given: Not Answered Alcohol Use Standard Drinks/Week Comments Never 0 (1 standard drink = 0.6 oz pur e alcohol) Sex and Gender Information Value Date Recorded Sex Assigned at Not on file Legal Sex Male 7:25 PM CDT Gender Identity Not on file Sexual Orientation Not on file Last Filed Vital Signs Vital Sign Reading Time Taken Comments Blood Pressure 141/78 06/20/2023 1:57 PM CDT Pulse 61 06/20/2023 1:57 PM CDT Temperature 36.3 C (97.4 F) 06/20/2023 10:46 AM CDT Respiratory Rate 16 06/20/2023 1:57 PM CDT Oxygen Saturation 100% 06/20/2023 1:57 PM CDT Inhaled Oxygen Concentration - - Weight 119.1 kg (262 lb 9.1 oz) 024 10:46 AM CDT Height 190.5 cm (6' 3 ) 06/20/2023 10:5 4 AM CDT Body Mass Index 32.82 06/20/2023 10:46 AM CDT Plan of Treatment Health Maintenance Due Date Last Done Comments Colorectal Cancer Screening Colonoscopy (10 Years) 1955 Hepatitis C 1974 DTaP, Tdap and Td Vaccines ( 1 - Tdap) 06/06/1975 Pneumococcal Vaccine: 65+ Years (1 of 1 - PCV) 2021 COVID-19 Vaccine (4 - 2023-2 5 season) 2023 02/25/2021, 06/18/2020, 05/26/2020 Influenza Adult (#1) 2023 01/10/2023, 12/13/2020 RSV Immunization or 60+ Years (1 - 1-dose 75+ series) 06/06/2031 Zoster Vaccines Completed 12/13/2020, 11/20/2019 Meningococcal B Vaccine Aged Out No l onger eligible based on patient's age to complete this topic Meningococcal Vaccine Aged Out No zenobia miguel eligible based on patient's age to complete this topic RSV Immunizations Under 20 Months Aged Out No longer eligible b ased on patient's age to complete this topic Insurance [employer] [place] Care Teams Communications Executive Relationship Specialty Start Date End Date Howard Marlow MD [address] [place] [id number] PCP - General FAMILY PRACTICE 06/20/23
--- OUTSIDE RECORDS SUMMARY | 2024-05-14 08:55 | XMS_ITS ---
Author Organization [facility], Address [address] [place] [address] Care Team Providers Care Elementary School Teacher Name Role Phone Howard Marlow Primary Care Provider Alex Anthony Unavailable [phone] REASON FOR VISIT Release to work Encounters Encounter Location Date Provider Diagnosis [facility] [address] [place] [address] 04/16/2024 Alex Lama PLAN OF TREATMENT No Information
--- OUTSIDE RECORDS SUMMARY | 2024-05-14 08:55 | XMS_ITS ---
Author Organization [facility], Address [address] [place] [address] Care Team Providers Care Upper Leather Cutter Name Role Phone Howard Marlow Primary Care Provider Alex Anthony Unavailable [phone] JohnJelena Unavailable [phone] ALLERGIES Allergen (clinical drug ingredient) Drug/Non Drug [...] Question Answer Notes Are you a nonsmoker PROBLEMS Problem Type ICD Code Onset Dates Problem Status W/U Status Risk SNOMED Code Notes Problem Herniated nucleus pulposus, lumbar (M51.26) Active confirmed Displacement of lumbar intervertebral disc without myelopathy (32120981) VITAL SIGNS BMI 28.74 kg/m2 02/10/2024 Height 75 in 02/10/2024 Weight 230 lbs 02/10/2024 PROCEDURES Procedure Date Ordered Date Performed Result Body Sit e Lumbar Epidural Steroid Injection 02/10/2024 02/10/2024 N/ A Encounters Encounter Location Date Provider Diagnosis [facility] [address] [place] [address] 02/10/2024 Jelena Vandergriff Thoracic back pain M54.6 ; Spinal stenosis of lumbar region with neurogenic claudication M48.062 ; Lumbar radicular pain M54.16 ; Herniated nucleus pulposus, lumbar M51.26 and Other low back pain M54.59 ASSESSMENTS Encounter Date Diagnosis Assessment Notes Treatment Notes Treatment Clinical Notes 02/10/2024 Thoracic back pain (ICD-10 - M54.6) 02/10/2024 Spinal stenosis of lumbar region with neurogenic claudication (ICD-10 - M48.062) 02/10/2024 Lumbar radicular pain (ICD-10 - M54.16) 02/10/2024 Herniated nucleus pulposus, lumbar (ICD-10 - M51.26) 02/10/2024 Other low back pain (ICD-10 - M54.59) PLAN OF TREATMENT No Information Progress Notes * Examination Category Sub-Category Detail Notes X-Ray LUMBAR X-RAY: AP and lateral v iews of the lumbar spine were obtained today. They demonstrate mild disc degeneration from L4 to S1. L4 to 5 shows spondylolisthesis measuring approximately 4 mm of anterior translation. 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
--- OUTSIDE RECORDS SUMMARY | 2024-05-14 08:55 | XMS_ITS | Patient Health Record ---
Author Organization [facility], Address [address] [place] [address] Care Team Providers Care Clerical Proofreader Name Role Phone Howard Marlow Primary Care Provider Alex Anthony Unavailable [phone] JohnJelena Unavailable [phone] ALLERGIES Allergen (clinical drug ingredient) Drug/Non Drug [...] Interpretation:815 Performing Lab: Notes/Report: 815 REASON FOR REFERRAL No Information MEDICATIONS Medication SIG (Take, Route, Frequency, Duration) Notes Start Date End Date Status Tadalafil Active Actos Active Simvastatin Active Escitalopram Oxalate Active Omeprazole Active Multivitamin Active Finasteride Active Amlodipine & Diet Manage Prod Active Senna Active Lisinopril Active Apple Cider Vinegar Active Aspirin Active Diclofenac Active FiberCon Active diazePAM Active Vitamin D3 Active Glimepiride Active Vitamin B6 Active traZODone HCl Active Vitamin B 12 Active Gabapentin Active Vitamin B Complex Ac tive Tamsulosin HCl Activ e SOCIAL HISTORY Tobacco Use: Social History Observation [...] Lumbar radiculopathy (M54.16) Active confirmed Lumbar radiculopathy (475486970) Problem Herniated nucleus pulposus, lumbar (M51.26) Active confirmed Displacement of lumbar intervertebral disc without myelopathy (67318983) VITAL SIGNS Height 75 in 02/10/2024 Weight 230 lbs 02/10/2024 BMI 28.74 kg/m2 02/10/2024 PROCEDURES Procedure Date Ordered Date Performed Result Body Sit e Lumbar Epidural Steroid Injection 02/10/2024 02/10/2024 N/ A Lumbar Transforaminal Epidur al Steroid Injection 02/19/2024 02/24/2024 N/A Encounters Encounter Location Date Provider Diagnosis [facility] [address] [address] 02/10/2024 Jelena John Thoracic back pain M54.6 ; Spinal stenosis of lumbar region with neurogenic claudication M48.062 ; Lumbar radicular pain M54.16 ; Herniated nucleus pulposus, lumbar M51.26 and Other low back pain M54.59 [facility], [address] [address] 02/19/2024 Alex Lama Lumbar radiculopathy M54.16 [facility], [address] [address] 04/16/2024 Alex Lama ASSESSMENTS Encounter Date Diagnosis Assessment Notes Treatment Notes Treatment Clinical Notes 02/10/2024 Thoracic back pain (ICD-10 - M54.6) 02/10/2024 Spinal stenosis of lumbar region with neurogenic claudication (ICD-10 - M48.062) 02/10/2024 Lumbar radicular melanie n (ICD-10 - M54.16) 02/19/2024 Lumbar radiculopathy (ICD-10 - M54.16) 02/10/2024 Herniated nucleus pulposus, lumbar (ICD-10 - M51.26) 02/10/2024 Other low back pain (ICD-10 - M54.59) PLAN OF TREATMENT No Information Insurance Providers Payer Name Payer Address Payer Phone Subscriber Number Group Number Insured Name Patient Relationship to Insured Coverage Start Date Coverage End Date [employer] [address] [place] [address] [id number] 01 Anthony Walton Self - patient is the insured [place] [address] [address] [place] [address] [id number] Anthony Walton Self - patient is the insured [place] [address] [address] [phone] [id number] Anthony Walton Self - patient is the insured MEDICAL (GENERAL) HISTORY Medical History History ICD Code Hypertension Depression Diabetes Surgical History Surgery Date(Month/Year) List not provided Hospitalization History Reason Date(Month/Year) None listed
== END 2024-05-14 08:47 | disposition home or self-care (01) ==
LOC: ANHCARD 08:49
PROVIDERS: PCP Family Medicine Adolescent Medicine; Visit Provider Internal Medicine Cardiovascular Disease
DX: R06.09 Other forms of dyspnea (principal)
CPT/HCPCS: 93017

== ENCOUNTER 2024-05-19 07:40 | Outpatient (CLI) | payer OTHER, MEDICARE, SELFPAY ==
--- OUTSIDE RECORDS SUMMARY | 2024-05-19 07:44 | XMS_ITS | Clinical Summary ---
Author Organization [facility] Address [facility] [place] [address] Care Team Providers Care Insulation Supervisor Name Role Phone Howard Marlow MD Primary Care Provider [phone]- [phone] Allergies Active Allergy Reactions Criticality Noted Date [...] Insurance [employer] Care Teams Insulation Supervisor Relationship Specialty Start Date End Date Howard Marlow MD [address] [place] [address] PCP - General FAMILY PRACTICE 06/20/23
--- OUTSIDE RECORDS SUMMARY | 2024-05-19 07:44 | XMS_ITS | Continuity of Care Document ---
Author Organization [facility] Address [address] [place] [address] Phone Care Team Providers Care Security Control Room Officer Name Role Phone Malcom Claudio MD Unavailable Unavailable Procedures Procedure Date INJECTION ANESTHETIC AND/OR STERIOD, TRANS EPIDURAL LUMB OR SACRAL,, SINGLE LEVE Triamcinolone Acetonide Injection, 10mg SURGICAL TRAY LOW OSMOLAR CONTRAST (200 TO 299 MG IODI NE) INJ SPINE LUM/SAC W/ IMAGING GUIDANCE No SURGICAL TRAY LOW OSMOLAR CONTRAST (200 TO 299 MG IODI NE) Triamcinolone Acetonide Injection, 10mg Advance Directives Directive Yes / No Effective Date File Name No Information Encounters Encounter Description Practice Location Reason(s) For Visit Diagnoses Date Provider Providers Copied on Encounter [facility], [address], [place], [place], [address], tel:[phone] [facility] No Information [facility]. [address], [place], [place], [address], [place]. tel:[phone] Referring Provider: Alex Lama, [address], [place], [address]. tel:[phone] [facility], [address], [place], [place], [address], tel:[phone] [facility] No Information [facility]. [address], [place], [place], [address], [place]. tel:[phone] Referring Provider: Alex Lama, [address], [place], [address]. tel:[phone] Family History Family Member Type Diagnosis Age At Onset No Information Payers Payer name Insurance type Covered alliance party ID Authoriza tivishal(s) [facility] [id number] [employer] [facility] [id number] MEDICARE MB [id number] Social History Type Description Quantity Date Captured Comments Sex Male Smoking Status No Information Chief Complaint And Reason For Visit No Information Reason For Referral Reason For Referral No Information History Of Present Illness Encounter Date Complaint History Of Prese nt Illness No Information Functional Status Date Functional Assessmen t No Information Instructions Date Instruction Additional Infor mation No Information Assessments Type Assessment Date No Information Patient Care Teams Name Effective Dates (start - stop) Status Members No Information
--- OUTSIDE RECORDS SUMMARY | 2024-05-19 07:44 | XMS_ITS | Patient Health Record ---
Author Organization [facility], Address [address] [place] [address] Care Team Providers Care Course Developer Name Role Phone Howard Marlow Primary Care Provider Alex Anthony Unavailable [phone] JohnJelena Unavailable [phone] ALLERGIES Allergen (clinical drug ingredient) Drug/Non Drug [...] Lumbar radiculopathy (M54.16) Active confirmed Lumbar radiculopathy (495641285) Problem Herniated nucleus pulposus, lumbar (M51.26) Active confirmed Displacement of lumbar intervertebral disc without myelopathy (56872780) VITAL SIGNS Height 75 in 02/10/2024 Weight 230 lbs 02/10/2024 BMI 28.74 kg/m2 02/10/2024 PROCEDURES Procedure Date Ordered Date Performed Result Body Sit e Lumbar Epidural Steroid Injection 02/10/2024 02/10/2024 N/ A Lumbar Transforaminal Epidur al Steroid Injection 02/19/2024 02/24/2024 N/A Encounters Encounter Location Date Provider Diagnosis [facility] [address] [address] 02/10/2024 Jelena John Thoracic back pain M54.6 ; Spinal stenosis of lumbar region with neurogenic claudication M48.062 ; Lumbar radicular pain M54.16 ; Herniated nucleus pulposus, lumbar M51.26 and Other low back pain M54.59 [facility], [address] [address] 02/19/2024 Alex Lama Lumbar radiculopathy M54.16 [facility], [address] [address] 04/16/2024 Alex Lama ASSESSMENTS Encounter Date Diagnosis [...] Date Coverage End Date [employer] [address] [place] [address] [id number] 01 Anthony Walton Self - patient is the insured [place] [address] [address] [place] [address] [id number] Anthony Walton Self - patient is the insured [place] [address] [address] [phone] [id number] Anthony Walton Self - patient is the insured MEDICAL (GENERAL) HISTORY Medical History History ICD Code Hypertension Depression Diabetes Surgical History Surgery Date(Month/Year) List not provided Hospitalization History Reason Date(Month/Year) None listed
--- OUTSIDE RECORDS SUMMARY | 2024-05-19 07:46 | XMS_ITS ---
Author Organization [facility], Address [address] [place] [address] Care Team Providers Care Emergency Department Name Role Phone Howard Marlow Primary Care Provider Alex Anthony Unavailable [phone] JohnJelena Unavailable [phone] ALLERGIES Allergen (clinical drug ingredient) Drug/Non Drug [...] Displacement of lumbar intervertebral disc without myelopathy (78330539) VITAL SIGNS BMI 28.74 kg/m2 02/10/2024 Height 75 in 02/10/2024 Weight 230 lbs 02/10/2024 PROCEDURES Procedure Date Ordered Date Performed Result Body Sit e Lumbar Epidural Steroid Injection 02/10/2024 02/10/2024 N/ A Encounters Encounter Location Date Provider Diagnosis [facility] [address] [place] [address] 02/10/2024 Jelena Vandergriff Thoracic back pain M54.6 [...]
--- OUTSIDE RECORDS SUMMARY | 2024-05-19 07:46 | XMS_ITS ---
Author Organization [facility], Address [address] [address] Care Team Providers Care Header Machine Operator Name Role Phone Howard Marlow Primary Care Provider Alex Anthony Unavailable [phone] REASON FOR VISIT Inj//schedule PROBLEMS Problem Type ICD Code Onset Dates Problem Status W/U Status Risk SNOMED Code Notes Problem Lumbar radiculopathy (M54.16) Active confirmed Lumbar radiculopathy (466401910) PROCEDURES Procedure Date Ordered Date Performed Result Body Sit e Lumbar Transforaminal Epidur al Steroid Injection 02/19/2024 02/24/2024 N/A Encounters Encounter Location Date Provider Diagnosis [facility] [address] [facility] [address] [place] [address] 02/19/2024 Alex Lama Lumbar radiculopathy M54.16 ASSESSMENTS Encounter Date Diagnosis Assessment Notes Treatment Notes Treatment Clinical Notes 02/19/2024 Lumbar radiculopathy (ICD-10 - M54.16) PLAN OF TREATMENT No Information
--- OUTSIDE RECORDS SUMMARY | 2024-05-19 07:46 | XMS_ITS ---
Author Organization [facility], Address [address] [place] [address] Care Team Providers Care Stone Dresser Name Role Phone Howard Marlow Primary Care Provider Alex Anthony Unavailable [phone] REASON FOR VISIT Release to work Encounters Encounter Location Date Provider Diagnosis [facility] [address] [place] [address] 04/16/2024 Alex Lama PLAN OF TREATMENT No Information
--- NOTE | 2024-06-09 18:30 | WPDHOMESLEEP ---
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 The patient admits to excessive daytime sleepiness, interruptions in breathing while asleep and trouble maintaining sleep. The patient denies snoring loudly. He denies choking or gasping at night. He does have trouble breathing on his back. He does have morning headaches. He does have a dry or sore mouth/ throat in the morning. He denies nocturnal heartburn. He denies nocturia. He denies having trouble falling asleep. He does have difficulty returning to sleep if he wakes up throughout the night. He does use hypnotics or sedatives. He does feel anxious about sleep. He does feel tired or sleepy during the day. He does feel tired in the morning. He denies having the urge to fall asleep during the day. He does feel drowsy while driving. He denies sleep paralysis, cataplexy and hypnagogic/ hypnopompic hallucinations. He does clench or grind his teeth. He denies kicking or jerking her legs excessively. He denies having a restless feeling in his legs. He goes to bed at 10:15 p.m. on work days and 9:00 p.m. on off days. It takes him 15 minutes to fall asleep. He gets 5 hours of sleep on both work days and his days off. His sleep is not at all restorative on his days off. He denies taking any planned naps. He denies dream enactment behavior. He denies sleep walking. He consumes 3-4 cups of caffeinated beverage per day. He denies alcohol and tobacco use. He denies exercising on a regular basis. FORMERLY [facility] Past Medical History Medical History RSV (respiratory syncytial virus pneumonia) Shingles Duodenal ulcer Transient ischemic attack Patent foramen ovale Benign prostatic hyperplasia Insulin dependent type 2 diabetes mellitus Multifocal pneumonia COVID-19 COVID-19 Hearing loss Obesity Hyperlipidemia Hypertension Anxiety Surgical History Surgical History History of inguinal hernia repair History of elbow surgery History of tonsillectomy and adenoidectomy History of hand surgery Right pinky finger 2011 Left ring finger 1963 per patient questionnaire History of facial surgery injury to face with multiple sutures Family History Family History Unknown Unknown family medical history patient was adopted Social History Social History Social History: Surrogate medical decision maker: Genie Walton, spouse. Code status: Full code. Smoking packs per day: 1.5 Smoking cigarettes per day: 30.0 Years smoked: 13 Smoking pack-years: 19.50 Smoking status: Former smoker Tobacco type: cigarettes Second hand tobacco smoke exposure: Yes Smoking end date: 03/25/85 Additional smoking assessment comments: Quit Smoking 1985. Alcohol intake: former Substance use: never Do You Feel Safe in your Home?: Yes Lack of Transportation: No Lack of Food: Never True Current Housing: I Have Housing Concerned About Future Housing: No Difficulty Paying Gas/Electric Bills: No Difficulty Paying for Meds: YES Currently Unemployed: No Education: High School Diploma/GED Difficulty w/ Childcare or Family Care: No Living arrangements: with family Additional living arrangements comments: Lives with spouse in [place]. He has 3 children. Occupation/Education: occupation Additional occupation/education comments: [employer] Spiritual care concerns: No Agree to blood products: Yes Medications Home Medications ?Medication ?Instructions ?Recorded ?Confirmed ?Type ascorbic acid (vitamin C) 1,000 mg 1 g PO HS 02/24/20 05/21/24 History tablet coenzyme Q10 300 mg capsule (Co 300 mg PO HS 02/24/20 05/21/24 History Q-10) cyanocobalamin (vitamin B-12) 1,000 mcg PO HS 02/24/20 05/21/24 History 1,000 mcg tablet,extended release (Vitamin B-12 ER) multivitamin 1 tablet PO HS 02/24/20 05/21/24 History pyridoxine (vitamin B6) 100 mg 100 mg PO HS 02/24/20 05/21/24 History tablet (Vitamin B-6) vitamin B complex 2 cap PO HS 02/24/20 05/21/24 History cholecalciferol (vitamin D3) 25 25 mcg PO HS 09/12/21 05/21/24 History mcg (1,000 unit) capsule apple cider vinegar 600 mg capsule 600 mg PO HS 02/11/23 05/21/24 History diazepam 5 mg tablet See Rx Instructions PO QHS PRN leg 10/27/23 05/21/24 Rx cramps #140 tabs aspirin 81 mg tablet,delayed See Rx Instructions .Route 11/08/23 05/21/24 Rx release .COMPLEX #90 tabs escitalopram oxalate 20 mg tablet 20 mg PO DAILY #90 tabs 11/27/23 05/21/24 Rx diclofenac sodium 75 mg 75 mg PO BID #180 tabs 12/13/23 05/21/24 Rx tablet,delayed release gabapentin 300 mg capsule 300 mg PO BID #60 caps 01/17/24 05/21/24 Rx pioglitazone 30 mg tablet 30 mg PO DAILY #90 tabs 01/19/24 05/21/24 Rx simvastatin 40 mg tablet 40 mg PO HS #90 tabs 02/05/24 05/21/24 Rx amlodipine 5 mg tablet See Rx Instructions .Route 02/23/24 05/21/24 Rx .COMPLEX #90 tabs trazodone 100 mg tablet 100 mg PO QHS PRN sleep #90 tabs 03/19/24 05/21/24 Rx tadalafil 5 mg tablet 5 mg PO DAILY #90 tabs 04/12/24 05/21/24 Rx finasteride 5 mg tablet See Rx Instructions .Route 04/13/24 05/21/24 Rx .COMPLEX #90 tabs glimepiride 1 mg tablet See Rx Instructions .Route 04/17/24 05/21/24 Rx .COMPLEX #90 tabs lisinopril 40 mg tablet 40 mg PO HS #90 tabs 04/17/24 05/21/24 Rx omeprazole 20 mg capsule,delayed See Rx Instructions .Route 04/17/24 05/21/24 Rx release .COMPLEX #90 caps tamsulosin 0.4 mg capsule 0.8 mg (2 x 0.4 mg) PO HS #180 caps 04/17/24 05/21/24 Rx sennosides 8.6 mg tablet (senna) 8.6 mg PO DAILY PRN constipation 05/22/24 Rx #30 tabs Sleep Procedure The sleep study was completed using [employer] a technically adequate device with seven channels: peripheral arterial tone, actigraphy, body position, snore, respiratory movement, pulse oximetry, sleep staging, and heart rate. Prior to using the device, the patient received verbal and written instructions for its application and was provided with the help desk phone number for additional telephonic instruction with 24-hour availability of qualified personnel to answer questions. The study was scored using CMS guidelines. Sleep Architecture The total recording time is 8 hrs, 31 min. The total sleep time is 7 hrs, 26 min. Sleep latency is 19 minutes. REM latency is 66 minutes. The patient had 13 episodes of waking. Sleep architecture shows 23.4% deep sleep, 48.3% light sleep, and (as % Total Sleep Time) showed NREM (Light 48.3%; Deep 23.4%), and a 28.3% stage REM. The patient spent 32.3% of total sleep time in the supine position. Sleep efficiency was 87.28. Respiratory Analysis The overall AHI (pAHI 4%:) is 13.9. The overall AHI (pAHI 3%:) is 26.9. The central AHI is 0.6. The AHI was 18.9 in NREM and 47.0 in REM sleep. The AHI was 36.9 in Supine and 22.0 in Non-supine sleep. Percent of Manny Hoffman respirations is 0.0. Oximetry Data The oxygen desaturation index (MIKEY 4%:) is 14.3. The mean saturation is 91%, and the lowest saturation is 81%. Time spent with saturation < 88% is 51.4 minutes. Snoring Profile Snoring average intensity is 41 dB. The patient snored above 45 decibels for 10.7 minutes, 2.4% of sleep time. Cardiac Profile The average pulse rate is 52 beats per minutes. The lowest pulse rate is 42 bpm. The highest pulse rate reported is 93 bpm. Atrial fibrillation was not detected. Premature beats occur 0.1 per minute. Assessment and Plan Assessment and Plan (1) MANDI (obstructive sleep apnea): Code(s): G47.33 - Obstructive sleep apnea (adult) (pediatric) Status: Acute Assessment and Plan: The patient had an overall AHI of 13.9 with desaturation down to 81%. This is consistent with mild sleep apnea. Due to the patient's diabetes, he qualifies for treatment. I recommend that the patient be prescribed AutoPAP 5-15 cm H2O, CPAP mask/filters/tubing and heated humidity. A mandibular advancement device is also an acceptable treatment option. This should be used with all episodes of sleep.? Compliance should be reviewed within 31-90 days of starting therapy for usage greater than 4 hours per night greater than 70% of the nights. The patient should be asked about symptoms such as?excessive daytime sleepiness, quality of sleep, decreased nocturia, increased?mental functioning such as memory, mood, and concentration. Data The data obtained during this sleep study is adequate for interpretation. Certification This sleep study has been reviewed by a board certified sleep medicine physician.
[2024-06-10 10:11] VITALS: BMI 29.5
== END 2024-05-25 11:39 | disposition home or self-care (01) ==
PROVIDERS: PCP Family Medicine Adolescent Medicine; Visit Provider Internal Medicine Cardiovascular Disease
DX: G47.33 Obstructive sleep apnea (adult) (pediatric) (principal); G47.10 Hypersomnia, unspecified
CPT/HCPCS: 95800

== ENCOUNTER 2024-06-08 18:32 | Emergency (ER) | payer OTHER, MEDICARE, SELFPAY ==
--- NOTE | 2024-06-08 18:34 | ECG_ITS ---
Test Date: 2024-06-08 18:44:04 Measurements Intervals Metcalf Rate: 68 P: 46 OR: 204 QRS: -44 QRSD: 113 T: 7 QT: 416 QTc: 443 Interpretive Statements SINUS RHYTHM WITH FIRST DEGREE AV BLOCK MARKED LEFT AXIS DEVIATION [QRS AXIS < -30] MODERATE INTRAVENTRICULAR CONDUCTION DELAY [110+ ms QRS DURATION] Compared to ECG 09/14/2023 14:47:30 NO SIGNIFICANT CHANGES Electronically Signed On 06-09-2024 16:45:11 CDT by Ghada Mendenhall M.D.
[2024-06-08 18:40] VITALS: BP 116/68; PULSE 62; RESP 20; TEMP 36; O2SAT 98
[2024-06-08 18:40] LABS: Glucose Point of Care 93 mg/dl (65-105)
[2024-06-08] MEDS: ASPIRIN 81 MG CHEWABLE TABLET 324 MG PO (18:45)
--- NOTE | 2024-06-08 18:51 | ED_ITS ---
HPI - General Adult General Chief complaint: Chest Pain Stated complaint: LT Arm Numb Time Seen by Provider: 06/08/24 18:32 Source: patient, RN notes reviewed and old records reviewed Mode of arrival: ambulatory Limitations: no limitations History of Present Illness HPI narrative: 69-year-old male presents to the [facility] with ?I think I am having a heart attack. ? Patient reports shortness of breath, left arm pain, left arm numbness, severe headache, left-sided jaw and neck pain. Patient reports most of his symptoms started this morning. The left arm numbness and pain started approximately 1 hour prior to arrival Have visited his primary care provider's office today, did not sign in but it blood pressure was checked. Patient reports that it was 60/52 and was told to not take his blood pressure medication. Patient reports that he stop by his primary care's office because of the headache and not feeling right. Onset (ago): hour(s) Related Data Home Medications ?Medication ?Instructions ?Recorded ?Confirmed ?Last Taken ?Type ascorbic acid (vitamin C) 1,000 mg 1 g PO 02/24/20 05/21/24 04/05/23 21:00 History tablet coenzyme Q10 300 mg capsule (Co 300 mg PO 02/24/20 05/21/24 04/05/23 21:00 History Q-10) cyanocobalamin (vitamin B-12) 1,000 mcg PO HS 02/24/20 05/21/24 04/05/23 21:00 History 1,000 mcg tablet,extended release (Vitamin B-12 ER) multivitamin 1 tablet PO 02/24/20 05/21/24 04/05/23 21:00 History pyridoxine (vitamin B6) 100 mg 100 mg PO 02/24/20 05/21/24 04/05/23 21:00 History tablet (Vitamin B-6) vitamin B complex 2 cap PO 02/24/20 05/21/24 04/05/23 21:00 History cholecalciferol (vitamin D3) 25 25 mcg PO HS 09/12/21 05/21/24 04/05/23 21:00 History mcg (1,000 unit) capsule apple cider vinegar 600 mg capsule 600 mg PO HS 02/11/23 05/21/24 04/05/23 21:00 History Allergies Allergy/AdvReac Type Severity Reaction Status Date / Time adenosine Allergy Severe Anaphylactic Verified 06/08/24 18:55 Shock oxycodone (From OxyContin) Allergy Severe Hallucinati Verified 06/08/24 18:55 ng Review of Systems Review of Systems: All systems reviewed & are unremarkable except as noted in HPI and below Constitutional: Constitutional: Reports no additional constitutional complaints ENT: Reports system reviewed and no additional complaints, except as documented Cardiovascular: Cardiovascular: Reports as per HPI, Denies chest pain, Reports syncope, Reports lightheadedness, Reports radiating jaw, neck or arm pain, Denies dyspnea, Reports dyspnea on exertion and Reports orthopnea Respiratory: Respiratory: Reports as per HPI, Denies chest congestion, Denies cough, Reports dyspnea, Denies stridor and Denies wheezing Musculoskeletal: Musculoskeletal: Reports no additional musculoskeletal complaints Integumentary/Breasts: Skin/Breast: Reports system reviewed and no additional complaints, except as docu [facility] Past Medical History Medical History RSV (respiratory syncytial virus pneumonia) Shingles Duodenal ulcer Transient ischemic attack Patent foramen ovale Benign prostatic hyperplasia Insulin dependent type 2 diabetes mellitus Multifocal pneumonia COVID-19 COVID-19 Hearing loss Obesity Hyperlipidemia Hypertension Anxiety Surgical History Surgical History History of inguinal hernia repair History of elbow surgery History of tonsillectomy and adenoidectomy History of hand surgery Right pinky finger 2011 Left ring finger 1963 per patient questionnaire History of facial surgery injury to face with multiple sutures Family History Family History Unknown Unknown family medical history patient was adopted Social History Social History Social History: Surrogate medical decision maker: Genie Walton, spouse. Code status: Full code. Smoking packs per day: 1.5 Smoking cigarettes per day: 30.0 Years smoked: 13 Smoking pack-years: 19.50 Smoking status: Former smoker Tobacco type: cigarettes Second hand tobacco smoke exposure: Yes Smoking end date: 03/25/85 Additional smoking assessment comments: Quit Smoking 1985. Alcohol intake: former Substance use: never Do You Feel Safe in your Home?: Yes Lack of Transportation: No Lack of Food: Never True Current Housing: I Have Housing Concerned About Future Housing: No Difficulty Paying Gas/Electric Bills: No Difficulty Paying for Meds: YES Currently Unemployed: No Education: High School Diploma/GED Difficulty w/ Childcare or Family Care: No Living arrangements: with family Additional living arrangements comments: Lives with spouse in [place]. He has 3 children. Occupation/Education: occupation Additional occupation/education comments: [employer] Spiritual care concerns: No Agree to blood products: Yes Comments At the time of my signature, I reviewed and agree with the nursing past medical, surgical, social, and family history. There is no relevant family history pertinent to the patient complaint. Exam Const: General: cooperative, healthy appearing, well developed, alert, acute distress, anxious, uncomfortable and well nourished Nutritional Appearance: well nourished Orientation/consciousness: patient oriented x3 Limitations: no limitations HENMT: Head: normal to inspection Mouth: Yes Normal oral and palatal mucosa present, Yes lip normal, Yes tongue normal and Yes moist mucous membranes Eyes: General: appearance normal, both eyes and all related structures Alignment and Position: alignment normal Neck: Neck: normal visual inspection, full ROM, no lymphadenopathy and no meningeal signs Chest: Chest palpation & inspection: normal inspection of the chest Resp: Effort & Inspection: normal respiratory effort and able to speak in complete sentences Auscultation: clear to auscultation bilaterally, no crackles, no rales, no rhonchi, no wheezes and diminished lung sounds Cardio: Rate: regular rate Skin: General skin exam: normal color and no rashes or lesions noted Neuro: General: patient oriented x3, gait normal, moves all extremities and no meningeal signs Cognition (Neuro): normal cognition Speech: normal speech Gait exam (Neuro): Normal gait present Motor exam (neuro): Pronator motor function not present Extrem: General: normal to inspection, full ROM, capillary refill normal and normal gait Psych: Appearance: grossly normal and well kempt Mental Status: mental status grossly normal Speech and movement: Normal speech and movement present and Clear speech present Affect: normal affect Attitude: cooperative Course Course Level of Care: Express Care Visit Vital Signs Vital signs: Vital Signs Temperature 96.8 F L 06/08/24 18:40 Pulse Rate 62 06/08/24 18:40 Respiratory Rate 20 03/17/25 18:40 Blood Pressure 116/68 06/08/24 18:40 Pulse Oximetry 98 06/08/24 18:40 Oxygen Delivery Room Air 06/08/24 18:40 Temperature 96.8 F L 06/08/24 18:40 Pulse Rate 62 06/08/24 18:40 Respiratory Rate 20 06/08/24 18:40 Blood Pressure 116/68 06/08/24 18:40 Pulse Oximetry 98 06/08/24 18:40 Oxygen Delivery Room Air 06/08/24 18:40 Reviewed Transfer Transfered to: [facility]: [facility] Transfer rationale: Patient presents with headache, dizziness, lightheadedness, abnormal blood pressure reading this morning. Pain to the left arm, shortness of breath. Sending for higher level of care Accepting physician: Esperanza Franklin NP Medical Decision Making MDM Narrative Medical decision making narrative: Patient arrives stating that ?I am having a heart attack. Patient is brought back to room 1 immediately, EKG and vitals done. EKG original, supraventricular rhythm no ST elevation or depression noted. Due to patient's high blood pressure, low blood pressure reading today per patient as well as signs and symptoms sending for higher level of care. Concerns for STEMI, non-STEMI, stroke, PE, cardiac event EMS called. All questions have been answered, and the patient deny any further questions Some parts of this dictation were generated by voice recognition software and may contain typographical and/or grammatical inaccuracies. Differential Diagnosis Differential Diagnosis: STEMI, non STEMI, stroke, abnormal blood pressure, PE Medical Records Medical records reviewed: Yes I reviewed the external patient's medical records. Vital Signs Vital Signs: Vital Signs Temperature 96.8 F L 06/08/24 18:40 Pulse Rate 62 06/08/24 18:40 Respiratory Rate 20 06/08/24 18:40 Blood Pressure 116/68 06/08/24 18:40 Pulse Oximetry 98 06/08/24 18:40 Oxygen Delivery Room Air 06/08/24 18:40 Temperature 96.8 F L 06/08/24 18:40 Pulse Rate 62 06/08/24 18:40 Respiratory Rate 20 06/08/24 18:40 Blood Pressure 116/68 06/08/24 18:40 Pulse Oximetry 98 06/08/24 18:40 Oxygen Delivery Room Air 06/08/24 18:40 Reviewed Lab Data Lab results reviewed: Yes I reviewed the patient's lab results. Labs: Lab Results 06/08/24 Range/Units 18:37 POC Capillary Glucose 93 (65-105) mg/dl Reviewed ECG Data EKG #1: Attestation: I personally reviewed and interpreted this ECG as follows: ECG completion date: 06/08/24 ECG completion time: 18:40 Prior ECG tracings: not available for review Interpretation: Supraventricular rhythm ventricle rate of 63, abnormal EKG EKG #2: Attestation: I personally reviewed and interpreted this ECG as follows: ECG completion date: 06/08/24 ECG completion time: 18:44 Prior ECG tracings: available for review Interpretation: Sinus rhythm, marked left axis deviation, moderate intraventricular conduction delay. Abnormal EKG. Ventricular rate of 68, MI interval 204, QRS duration 113 EKG #3: Attestation: I personally reviewed and interpreted this ECG as follows: ECG completion date: 06/08/24 ECG completion time: 18:48 Prior ECG tracings: available for review Interpretation: Sinus rhythm. Moderate interventricular conduction delay. Abnormal EKG, ventricular rate of 64, MI interval 191, QRS duration 120 Critical Care Time Critical Care Time Critical Care Time: No Discharge Plan Discharge Clinical Impression: Breath shortness, Headache, Arm numbness left Patient Disposition: Acute Care Hospital Condition: Guarded Prognosis Patient Language: Sami Prescriptions: No Action cholecalciferol (vitamin D3) 25 mcg (1,000 unit) capsule 25 mcg PO HS apple cider vinegar 600 mg capsule 600 mg PO HS simvastatin 40 mg tablet 40 mg PO HS Qty: 90 2RF multivitamin Tablet 1 tablet PO HS cyanocobalamin (vitamin B-12) [Vitamin B-12] 1,000 mcg Tablet Extended Release 1,000 mcg PO HS ascorbic acid (vitamin C) 1,000 mg Tablet 1 g PO HS pyridoxine (vitamin B6) [Vitamin B-6] 100 mg Tablet 100 mg PO HS vitamin B complex Capsule 2 cap PO HS Co Q-10 300 mg Capsule 300 mg PO HS diazepam 5 mg tablet See Rx Instructions PO QHS PRN (Reason: leg cramps) Qty: 140 1RF Rx Instructions: Take 1 or 2 orally every day at bedtime PRN; aspirin 81 mg tablet,delayed release (DR/EC) See Rx Instructions .ROUTE .COMPLEX Qty: 90 2RF Dose Instruction: TAKE 1 TABLET BY MOUTH EVERYDAY AT BEDTIME Rx Instructions: TAKE 1 TABLET BY MOUTH EVERYDAY AT BEDTIME escitalopram oxalate 20 mg tablet 20 mg PO DAILY Qty: 90 2RF diclofenac sodium 75 mg tablet,delayed release (DR/EC) 75 mg PO BID Qty: 180 1RF gabapentin 300 mg capsule 300 mg PO BID Qty: 60 1RF pioglitazone 30 mg tablet 30 mg PO DAILY Qty: 90 1RF amlodipine 5 mg tablet See Rx Instructions .ROUTE .COMPLEX Qty: 90 1RF Dose Instruction: 5 MG ORALLY DAILY Rx Instructions: 5 MG ORALLY DAILY trazodone 100 mg tablet 100 mg PO QHS PRN (Reason: sleep) Qty: 90 2RF tadalafil 5 mg tablet 5 mg PO DAILY Qty: 90 2RF finasteride 5 mg tablet See Rx Instructions .ROUTE .COMPLEX Qty: 90 2RF Dose Instruction: TAKE 1 TABLET BY MOUTH EVERY DAY Rx Instructions: TAKE 1 TABLET BY MOUTH EVERY DAY lisinopril 40 mg tablet 40 mg PO HS Qty: 90 2RF glimepiride 1 mg tablet See Rx Instructions .ROUTE .COMPLEX Qty: 90 1RF Dose Instruction: TAKE 1 TABLET BY MOUTH EVERY DAY Rx Instructions: TAKE 1 TABLET BY MOUTH EVERY DAY omeprazole 20 mg capsule,delayed release(DR/EC) See Rx Instructions .ROUTE .COMPLEX Qty: 90 3RF Dose Instruction: TAKE 1 CAPSULE BY MOUTH EVERY DAY Rx Instructions: TAKE 1 CAPSULE BY MOUTH EVERY DAY tamsulosin 0.4 mg capsule 0.8 mg PO HS Qty: 180 3RF sennosides [senna] 8.6 mg tablet 8.6 mg PO DAILY PRN (Reason: constipation) Qty: 30 1RF Follow-up/Referrals: Howard Marlow MD [Primary Care Provider] -
--- NOTE | 2024-06-08 18:53 | ECG_ITS ---
Test Date: 2024-06-08 18:48:38 Measurements Intervals Gary Rate: 64 P: 42 MI: 191 QRS: -34 QRSD: 121 T: -2 QT: 415 QTc: 430 Interpretive Statements SINUS RHYTHM MARKED LEFT AXIS DEVIATION [QRS AXIS < -30] MODERATE INTRAVENTRICULAR CONDUCTION DELAY [110+ ms QRS DURATION] Compared to ECG 06/08/2024 18:44:04 No significant changes Electronically Signed On 06-09-2024 16:45:18 CDT by Ghada Mendenhall M.D.
--- OUTSIDE RECORDS SUMMARY | 2024-06-08 19:13 | XMS_ITS | Continuity of Care Document ---
Author Organization [facility] Address [address] [address] [address] [place] [address] Phone Care Team Providers Care Calcine Furnace Loader Name Role Phone Roma PT, DPT, Govind Unavailable Unavailable Procedures Procedure Date Doc neg elder mal no plan PT Evaluation Moderate Complexity Therapeutic Activities Neuromuscular Re-Ed Therapeutic Exercise THERAPEUTIC EXERCISES NEUROMUSCULAR RE-ED FUNC ACTIVITY HOT/COLD PACK THERAPEUTIC EXERCISES NEUROMUSCULAR RE-ED FUNC ACTIVITY HOT/COLD PACK THERAPEUTIC EXERCISES NEUROMUSCULAR RE-ED FUNC ACTIVITY HOT/COLD PACK THERAPEUTIC EXERCISES NEUROMUSCULAR RE-ED FUNC ACTIVITY HOT/COLD PACK THERAPEUTIC EXERCISES NEUROMUSCULAR RE-ED FUNC ACTIVITY HOT/COLD PACK THERAPEUTIC EXERCISES NEUROMUSCULAR RE-ED FUNC ACTIVITY HOT/COLD PACK OT RE-EVALUATION THERAPEUTIC EXERCISES NEUROMUSCULAR RE-ED FUNC ACTIVITY HOT/COLD PACK THERAPEUTIC EXERCISES NEUROMUSCULAR RE-ED FUNC ACTIVITY THERAPEUTIC EXERCISES NEUROMUSCULAR RE-ED FUNC ACTIVITY THERAPEUTIC EXERCISES NEUROMUSCULAR RE-ED FUNC ACTIVITY THERAPEUTIC EXERCISES NEUROMUSCULAR RE-ED MANUAL THERAPY FUNC ACTIVITY HOT/COLD PACK THERAPEUTIC EXERCISES NEUROMUSCULAR RE-ED MANUAL THERAPY FUNC ACTIVITY HOT/COLD PACK THERAPEUTIC EXERCISES NEUROMUSCULAR RE-ED MANUAL THERAPY FUNC ACTIVITY THERAPEUTIC EXERCISES NEUROMUSCULAR RE-ED MANUAL THERAPY FUNC ACTIVITY HOT/COLD PACK THERAPEUTIC EXERCISES NEUROMUSCULAR RE-ED MANUAL THERAPY FUNC ACTIVITY HOT/COLD PACK THERAPEUTIC EXERCISES NEUROMUSCULAR RE-ED MANUAL THERAPY FUNC ACTIVITY HOT/COLD PACK THERAPEUTIC EXERCISES MANUAL THERAPY FUNC ACTIVITY HOT/COLD PACK ELECTRIC STIMULATION UNATT THERAPEUTIC EXERCISES NEUROMUSCULAR RE-ED MANUAL THERAPY FUNC ACTIVITY HOT/COLD PACK ELECTRIC STIMULATION UNATT THERAPEUTIC EXERCISES MANUAL THERAPY FUNC ACTIVITY HOT/COLD PACK ELECTRIC STIMULATION UNATT THERAPEUTIC EXERCISES MANUAL THERAPY FUNC ACTIVITY HOT/COLD PACK ELECTRIC STIMULATION UNATT THERAPEUTIC EXERCISES MANUAL THERAPY FUNC ACTIVITY HOT/COLD PACK ELECTRIC STIMULATION UNATT THERAPEUTIC EXERCISES MANUAL THERAPY FUNC ACTIVITY HOT/COLD PACK ELECTRIC STIMULATION UNATT THERAPEUTIC EXERCISES MANUAL THERAPY FUNC ACTIVITY HOT/COLD PACK OT RE-EVALUATION THERAPEUTIC EXERCISES MANUAL THERAPY FUNC ACTIVITY HOT/COLD PACK THERAPEUTIC EXERCISES MANUAL THERAPY FUNC ACTIVITY HOT/COLD PACK THERAPEUTIC EXERCISES MANUAL THERAPY FUNC ACTIVITY OT EVALUATION THERAPEUTIC EXERCISES Advance Directives Directive Yes / No Effective Date File Name No Information Encounters Encounter Description Practice Location Reason(s) For Visit Diagnoses Date Provider Providers Copied on Encounter [facility] [address], [id number], tel:[phone] [place] No Information 2 Roma Faust. . [facility], [id number], tel:[phone] [place] No Information 2 Roma Faust. . [facility], [id number], tel:[phone] [place] No Information Sep-0 9-201 5 Getachew Dotson. [address] [place] [address], [address], [facility], . tel:[phone] Referring Provider: Candelario Willis, [address] [place] [address], [place], [address]. tel:[phone] [facility] [address], [id number], tel:[phone] [place] No Information Sep-0 4-201 5 Getachew Dotson. [address] [facility], [address], [place], [facility], . tel:[phone] Referring Provider: Candelario Lazaro, [address]nd [facility], [place], [address]. tel:[phone] [place] [address], [place], [place], [id number], tel:[phone] [place] No Information 8201 5 Chilel Nila. [address] [place] [address], [address], [place], [facility], . tel:[phone] Referring Provider: Candelario Willis, [address] [facility], [place], [address]. tel:[phone] [place] [address] [address], [place], [place], [id number], [place] tel:[phone] [place] No Information 6 5 Chilel Nila. [address] [place] [address], [address], [place], [facility], . tel:[phone] Referring Provider: Candelario Willis, [address], [place], [address]. tel:[phone] [place] [address] [address], [place], [place], [id number], [place] tel:[phone] [place] No Information 2 5 Chilel Nila. [address] [place] [address], [address], [place], [facility], . tel:[phone] Referring Provider: Candelario Willis, [address] [facility], [place], [address]. tel:[phone] [place] [address], [place], [id number], [place] tel:[phone] [place] No Information 2 1 5 Chilel Nila. [address] [place] [address], [address], [place], [facility], . tel:[phone] Referring Provider: Candelario Willis, [address], [place], [address]. tel:[phone] [facility] [address], [place], [place], [id number], tel:[phone] [place] No Information Chilel Nila. [address] [place] [address], [address] [address], . tel:[phone] Referring Provider: Candelario Willis, [address] [place] [address], [place], [facility]. tel:[phone] [place] [address], [place], [place], [id number], tel:[phone] [place] No Information Getachew Dotson. [address] [place] [address], [address], [place], [facility], . tel:[phone] Referring Provider: Candelario Willis, [address], [place], [address]. tel:[phone] [place] [address] [facility], [place], [place], [id number], tel:[phone] [place] No Information Bonnie Luther. [address] [place] [address], [address], [place], [facility], . tel:[phone] Referring Provider: Candelario Willis, [address], [place], [address]. tel:[phone] [place] [address], [place], [place], [id number], [place] tel:[phone] [place] No Information 0 5 Bonnie Luther. [address] [place] [address], [address], [place], [facility], . tel:[phone] Referring Provider: Candelario Willis, [address], [place], [address]. tel:[phone] [place] [address] [facility], [place], [place], [id number], tel:[phone] [place] No Information 7 5 Hauschild Homa. [address] [place] [address], [address], [place], [address], . tel:[phone] Referring Provider: Candelario Willis, Nedra E [address] [place] [address], [address]. tel:[phone] [facility] [address] [facility], [place], [id number], tel:[phone] [place] No Information -201 5 Hauschild Homa. [address] [place] [address], [address], [place], [address], . tel:[phone] Referring Provider: Nedra Saba E [address] [place] [address], [address]. tel:[phone] [facility] [address] [facility], [place], [place], [id number], tel:[phone] [place] No Information - 5 Hauschild Homa. [address] [place] [address], [address], [place], [address], [place]. tel:[phone] Referring Provider: Candelario Willis, Nedra E [address] [place] [address], [address]. tel:[phone] [facility] [address] [facility], [place], [id number], [place] tel:[phone] [place] No Information 5 Hauschild Homa. [address] [facility], [address], [place], [address], [place]. tel:[phone] Referring Provider: Nedra Saba E [address] [place] [address], [address]. tel:[phone] [facility] [facility], [place], [id number], tel:[phone] [place] No Information 9- 5 Hauschild Homa. [address] [place] [address], [address], [place], [address], [place]. tel:[phone] Referring Provider: Candelario Willis, Nedra [address], [place], [address]. tel:[phone] [place] [address], [place], [place], [address], [place] tel:[phone] [place] No Information 7-201 5 Nichol Piña. . Referring Provider: Candelario Willis, [address] [place] [address], [place], [address]. tel:[phone] [place] [address] [address], [place], [address], [place] tel:[phone] [place] No Information 4-201 5 Bonnie Luther. [address] [place] [address], [address], [place], [facility], [place]. tel:[phone] Referring Provider: Nedra Saba E [address] [place] [address], [place], [address]. tel:[phone] [place] [address], [place], [address], [place] tel:[phone] [place] No Information 2-201 5 Bonnie Luther. [address] [place] [address], [address], [place], [facility], [place]. tel:[phone] Referring Provider: Candelario Willis, Nedra E [address], [place], [address]. tel:[phone] [place] [address], [place], [address], [place] tel:[phone] [place] No Information 0-201 5 Bonnie Luther. [address] [place] [address], [address], [place], [address], [place]. tel:[phone] Referring Provider: Nedra Saba E st [address], [place], [address]. tel:[phone] [place] [address], [place], [place], [address], [place] tel:[phone] [place] No Information 7-201 5 Bonnie Luther. [address] [place] [address], [address], [place], [facility], . tel:[phone] Referring Provider: Candelario Willis, Nedra E [address], [place], [address]. tel:[phone] [place] [address], [place], [address], [place] tel:[phone] [place] No Information 5-201 5 Bonnie Luther. [address] [place] [address], [address], [place], [facility], [place]. tel:[phone] Referring Provider: Nedra Saba E st [address], [place], [address]. tel:[phone] [place] [address], [place], [address], [place] tel:[phone] [place] No Information 3-201 5 Bonnie Luther. [address] [place] [address], [address], [place], [facility], [place]. tel:[phone] Referring Provider: Nedra Saba E st [address], [place], [address]. tel:[phone] [place] [address] [address], [place], [place], [address], [place] tel:[phone] [place] No Information 0-201 5 Bonnie Luther. [address] [place] [address], [address], [place], [facility], [place]. tel:[phone] Referring Provider: Nedra Saba E st [address], [place], [address]. tel:[phone] [place] [address], [id number], tel:[phone] [place] No Information 6 5 Hauschialeida Pinedafer. [address] [place] [address], [address], [place], [facility], . tel:[phone] Referring Provider: Candelario Willis, Nedra E [address] [place] [address], [facility]. tel:[phone], [id number], tel:[phone] [place] No Information 5 Haalfredohialeida Pinedafer. [address] [place] [address], [facility] [address] [address], . tel:[phone] Referring Provider: Candelario Willis, Nedra E [address] [place] [address], [facility]. tel:[phone], [id number], tel:[phone] [place] No Information 2 5 Hauschialeida Pinedafer. [address] [place] [address], [address], [place], [facility], . tel:[phone] Referring Provider: Candelario Willis, Nedra E [address] [place] [address], [facility]. tel:[phone], [id number], [phone] [place] Pain in joint involving forearm 5 Hauschialeida Pinedafer. [address] [place] [address], [address] [address], . tel:[phone] Referring Provider: Nedra Saba E [address] [place] [address], [facility]. tel:[phone] Family History Family Member Type Diagnosis Age At Onset No Information Payers Payer name Insurance type Covered constitution party ID Authormilkaa tova(s) Medicare [place] [id number] Social History Type Description Quantity Date Captured Comments Sex Male Smoking Status No Information Chief Complaint And Reason For Visit No Information Reason For Referral Reason For Referral No Information History Of Present Illness Encounter Date Complaint History Of Prese nt Illness No Information Functional Status Date Functional Assessmen t No Information Instructions Date Instruction Additional Infor mation Giving encouragement to exercise Related to Overweight Giving encouragement to exercise Related to Overweight Assessments Type Assessment Date No Information Patient Care Teams Name Effective Dates (start - stop) Status Members No Information
--- OUTSIDE RECORDS SUMMARY | 2024-06-08 19:13 | XMS_ITS ---
Author Organization [facility], Address [address] [place] [address] Care Team Providers Care Personnel Psychologist Name Role Phone Howard Marlow Primary Care Provider Alex Anthony Unavailable [phone] REASON FOR VISIT Release to work Encounters Encounter Location Date Provider Diagnosis [facility] [address] [place] [address] 04/16/2024 Alex Lama PLAN OF TREATMENT No Information
--- OUTSIDE RECORDS SUMMARY | 2024-06-08 19:13 | XMS_ITS ---
Author Organization [facility] Address [address] [address] Care Team Providers Care Cytology Laboratory Manager Name Role Phone Howard Marlow Primary Care Provider Alex Anthony Unavailable [phone] REASON FOR VISIT Scheduling PROCEDURES Procedure Date Ordered Date Performed Result Body Sit e Lumbar Transforaminal Epidur al Steroid Injection 05/20/2024 05/20/2024 N/A Encounters Encounter Location Date Provider Diagnosis [facility] [address] [facility] [address] [place] [address] 05/20/2024 Alex Lama Lumbar radiculopathy M54.16 ASSESSMENTS Encounter Date Diagnosis Assessment Notes Treatment Notes Treatment Clinical Notes 05/20/2024 Lumbar radiculopathy (ICD-10 - M54.16) PLAN OF TREATMENT No Information
--- OUTSIDE RECORDS SUMMARY | 2024-06-08 19:13 | XMS_ITS | Clinical Summary ---
Author Organization [facility] Address [facility] [place] [address] Care Team Providers Care Deckhand Name Role Phone Howard Marlow MD Primary Care Provider [phone] Allergies Active Allergy Reactions Criticality Noted Date [...] Insurance [employer] Care Teams Deckhand Relationship Specialty Start Date End Date Howard Marlow MD [address] [place] [address] PCP - General FAMILY PRACTICE 06/20/23
--- OUTSIDE RECORDS SUMMARY | 2024-06-08 19:13 | XMS_ITS | Clinical Summary ---
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 6th [place] [address] [place] [address] Lon Palacios MD Pain of right hand (Primary Dx); History of sprained wrist; Sprain and strain of right wrist 05/27/2024 9:26 AM SYSTEMS LEAD - 05/27/2024 11:59 PM SYSTEMS LEAD Hospital Encounter [facility] [address] [place] [address] Lon Palacios MD Discharge Disposition: Discharge to home or self care from Last 3 Months Social History Tobacco Use Types Packs/Day Years Used Date Smoking Tobacco: Former Sex and Gender Information Value Date Recorded Sex Assigned at Not on file Legal Sex Male 11:24 PM SYSTEMS LEAD Gender Identity Not on file Sexual Orientation Not on file Obstetrics History Last Filed Vital Signs Vital Sign Reading Time Taken Comments Blood Pressure 116/83 09/16/2012 10:16 AM CDT Pulse - - Temperature - - Respiratory Rate - - Oxygen Saturation - - Inhaled Oxygen Concentration - - Weight 119.7 kg (264 lb) 09/16/2012 10:16 AM CDT Height 188 cm (6' 2 ) 09/16/2012 10:16 AM CDT Body Mass Index 33.9 09/16/2012 10:16 AM CDT Plan of Treatment Health Maintenance Due Date Last Done Comments Colon Cancer Screening-Colonoscopy 1955 Depression Screening 1956 Fall Risk Assessment 1956 Hepatitis C Screening 1956 Prostate Cancer Screening-PSA 1956 DTaP/Tdap/Td Vaccine (1 - Tdap) 06/06/1967 Hepatitis B Screening 1974 Pneumococcal vaccine 65+ (1 of 1 - PCV) 2006 Abdominal Aortic Aneurysm (AAA) Screen 2021 Well Visit 65+ 2021 Covid-19 Vaccine ( season) 2023, 05/26/2020 Influenza Vaccine (#1) 2023 12/13/2020 Zoster Vaccine Completed 12/13/2020, 11/20/2019 Procedures Procedure Name Priority Date/Time Associated Diagnosis Comments XR WRIST LEFT 3 OR MORE VIEWS Schedule Routine, Read Routine (OP Routine) 05/27/2024 9:47 AM SYSTEMS LEAD Pain of right hand XR HAND LEFT 3 OR MORE VIEWS Schedule Routine, Read Routine (OP Routine) 05/27/2024 9:47 AM SYSTEMS LEAD Pain of right hand from Last 3 Months Results * XR Hand Left 3 or More Views (05/27/2024 9:47 AM SYSTEMS LEAD) Anatomical Region Laterality Modality Upper Extremities, Hand Left Computed Radiography 05/27/2024 10:2 3 AM SYSTEMS LEAD Impressions 05/27/2024 10:23 AM SYSTEMS LEAD Mild left hand and wrist osteoarthritis. Possible ulnar carpal impaction. Electronically signed by: Arnie Cardona M.D. Narrative 05/27/2024 10:23 AM SYSTEMS LEAD EXAMINATION: XR HAND LEFT 3 OR MORE VIEWS, XR WRIST LEFT 3 OR MORE VIEWS HISTORY: Left hand and wrist pain FINDINGS: 3 views of the left hand and 3 views of the left wrist were performed without prior comparison. Alignment of the left hand and the left wrist is normal. There is mild distal interphalangeal joint osteoarthritis of the fingers. 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 There is mild ulnar positive variance with cystic change in the lunate which may be seen with ulnar carpal impaction. There is a small erosion in the ulnar styloid. There is no acute fracture. Procedure Note Arnie Cardona MD PhD - 05/27/2024 EXAMINATION: XR HAND LEFT 3 OR MORE VIEWS, XR WRIST LEFT 3 OR MORE VIEWS HISTORY: Left hand and wrist pain FINDINGS: 3 views of the left hand and 3 views of the left wrist were performed without prior comparison. Alignment of the left hand and the left wrist is normal. There is mild distal interphalangeal joint osteoarthritis of the fingers. 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 There is mild ulnar positive variance with cystic change in the lunate which may be seen with ulnar carpal impaction. There is a small erosion in the ulnar styloid. There is no acute fracture. IMPRESSION: Mild left hand and wrist osteoarthritis. Possible ulnar carpal impaction. Electronically signed by: Arnie Cardona M.D. Lon Palacios MD IMG XR PROCEDURES Final R esult * XR Wrist Left 3 or More Views (05/27/2024 9:47 AM SYSTEMS LEAD) Anatomical Region Laterality Modality Upper Extremities, Wrist Left Compute d Radiography 05/27/2024 10:2 3 AM SYSTEMS LEAD Impressions 05/27/2024 10:23 AM SYSTEMS LEAD Mild left hand and wrist osteoarthritis. Possible ulnar carpal impaction. Electronically signed by: Arnie Cardona M.D. Narrative 05/27/2024 10:23 AM SYSTEMS LEAD EXAMINATION: XR HAND LEFT 3 OR MORE VIEWS, XR WRIST LEFT 3 OR MORE VIEWS HISTORY: Left hand and wrist pain FINDINGS: 3 views of the left hand and 3 views of the left wrist were performed without prior comparison. Alignment of the left hand and the left wrist is normal. There is mild distal interphalangeal joint osteoarthritis of the fingers. 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 There is mild ulnar positive variance with cystic change in the lunate which may be seen with ulnar carpal impaction. There is a small erosion in the ulnar styloid. There is no acute fracture. Procedure Note Arnie Cardona MD PhD - 05/27/2024 EXAMINATION: XR HAND LEFT 3 OR MORE VIEWS, XR WRIST LEFT 3 OR MORE VIEWS HISTORY: Left hand and wrist pain FINDINGS: 3 views of the left hand and 3 views of the left wrist were performed without prior comparison. Alignment of the left hand and the left wrist is normal. There is mild distal interphalangeal joint osteoarthritis of the fingers. 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 There is mild ulnar positive variance with cystic change in the lunate which may be seen with ulnar carpal impaction. There is a small erosion in the ulnar styloid. There is no acute fracture. IMPRESSION: Mild left hand and wrist osteoarthritis. Possible ulnar carpal impaction. Electronically signed by: Arnie Cardona M.D. Lon Palacios MD IMG XR PROCEDURES Final R esult from Last 3 Months Insurance [facility]ICARE [facility] MEDIC[facility] Care Teams Electronic Scale Tester Relationship Specialty Start Date End Date Howard Marlow MD [address] [place] [address] PCP - General Family Medicine 05/12/24
--- OUTSIDE RECORDS SUMMARY | 2024-06-08 19:13 | XMS_ITS | Continuity of Care Document ---
Author Organization [facility] Address [address] [place] [address] Phone Care Team Providers Care Skidway Man Name Role Phone Malcom Claudio MD Unavailable [...] Diagnoses Date Provider Providers Copied on Encounter [facility], [address], [place], [place], [address], tel:[phone] [facility] No Information Sahnon العراقي. [address], [place], [place], [address], [place]. tel:[phone] Referring Provider: Alex Lama, [address], [place], [address]. tel:[phone] [facility], [address], [place], [place], [address], tel:[phone] [facility] No Information Shanon العراقي. [address], [place], [place], [address], [place]. tel:[phone] Referring Provider: Alex Lama, [address], [place], [address]. tel:[phone] Family History Family Member Type Diagnosis Age At Onset No Information Payers Payer name Insurance type Covered constitution party ID Authoriza tivishal(s) [facility] [id number] [employer] [facility] [id number] MEDICARE MB [id number] Social History Type Description Quantity Date Captured [...]
--- OUTSIDE RECORDS SUMMARY | 2024-06-08 19:13 | XMS_ITS ---
Author Organization [facility], Address [address] [facility] [address] [place] [address] Care Team Providers Care Manager Transportation Planning Name Role Phone Howard Marlow Primary Care Provider Alex Anthony Unavailable [phone] REASON FOR VISIT Inj//schedule PROBLEMS Problem Type ICD Code Onset Dates Problem Status W/U Status Risk SNOMED Code Notes Problem Lumbar radiculopathy (M54.16) Active confirmed Lumbar radiculopathy (948385658) PROCEDURES Procedure Date Ordered Date Performed Result Body Sit e Lumbar Transforaminal Epidur al Steroid Injection 02/19/2024 02/24/2024 N/A Encounters Encounter Location Date Provider Diagnosis [facility] [address] [facility] [address] [place] [address] 02/19/2024 Alex Lama Lumbar radiculopathy M54.16 ASSESSMENTS Encounter Date Diagnosis Assessment Notes Treatment Notes Treatment Clinical Notes 02/19/2024 Lumbar radiculopathy (ICD-10 - M54.16) PLAN OF TREATMENT No Information
--- OUTSIDE RECORDS SUMMARY | 2024-06-08 19:13 | XMS_ITS | Referral Summary ---
Author Organization [facility] [address] [facility] Address [address] [place] [address] Care Team Providers Care Size Mixer Name Role Phone Howard Marlow MD Primary Care Prov ider Encounters Date Type Department Care Team Description 05/27/2024 9:26 AM CLINICAL DOCUMENTATION CONSULTANT - 05/27/2024 11:59 PM CLINICAL DOCUMENTATION CONSULTANT Hospital Encounter [facility] [address] [place] [address] Lon Palacios MD Discharge Disposition: Discharge to home or self care 05/27/2024 9:30 AM CLINICAL DOCUMENTATION CONSULTANT Office Visit [facility] [address] [place] [address] Advanced Medicine 6th [place] [address] [place] [address] Lon Palacios MD Pain of right hand (Primary Dx); History of sprained wrist; Sprain and strain of right wrist from Last 3 Months Allergies Active Allergy Reactions Criticality Noted Date Comments Iodinated Contrast Media Anaphylaxis High Reaction: Cardiac Arrest, Oxycodone Hallucinations High Reaction: Hallucinations, Medications No known medications Active Problems Problem Noted Date Diagnosed Date 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 Head revolving around 08/13/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 Meniere's disease 04/27 Pain of hand 04/04/2011 Social History Tobacco Use Types Packs/Day Years Used Date Smoking Tobacco: Former Sex and Gender Information Value Date Recorded Sex Assigned at Not on file Legal Sex Male 11:24 PM CLINICAL DOCUMENTATION CONSULTANT Gender Identity Not on file Sexual Orientation [...] 09/16/2012 10:16 AM CDT Plan of Treatment Not on file Procedures Procedure Name Priority Date/Time Associated Diagnosis Comments XR WRIST LEFT 3 OR MORE VIEWS Schedule Routine, Read Routine (OP Routine) 05/27/2024 9:47 AM CLINICAL DOCUMENTATION CONSULTANT Pain of right hand XR HAND LEFT 3 OR MORE VIEWS Schedule Routine, Read Routine (OP Routine) 05/27/2024 9:47 AM CLINICAL DOCUMENTATION CONSULTANT Pain of right hand from Last 3 Months Results * XR Hand Left 3 or More Views (05/27/2024 9:47 AM CLINICAL DOCUMENTATION CONSULTANT) Anatomical Region Laterality Modality Upper Extremities, Hand Left Computed Radiography 05/27/2024 10:2 3 AM CLINICAL DOCUMENTATION CONSULTANT Impressions 05/27/2024 10:23 AM CLINICAL DOCUMENTATION CONSULTANT Mild left hand and wrist osteoarthritis. Possible ulnar carpal impaction. Electronically signed by: Arnie Cardona M.D. Narrative 05/27/2024 10:23 AM CLINICAL DOCUMENTATION CONSULTANT EXAMINATION: XR HAND LEFT 3 OR MORE [...] 3 or More Views (05/27/2024 9:47 AM CLINICAL DOCUMENTATION CONSULTANT) Anatomical Region Laterality Modality Upper Extremities, Wrist Left Compute d Radiography 05/27/2024 10:2 3 AM CLINICAL DOCUMENTATION CONSULTANT Impressions 05/27/2024 10:23 AM CLINICAL DOCUMENTATION CONSULTANT Mild left hand and wrist osteoarthritis. Possible ulnar carpal impaction. Electronically signed by: Arnie Cardona M.D. Narrative 05/27/2024 10:23 AM CLINICAL DOCUMENTATION CONSULTANT EXAMINATION: XR HAND LEFT 3 OR MORE [...] R esult from Last 3 Months Insurance [facility] MEDICARE [facility] MEDICARE [facility] Care Teams Size Mixer Relationship Specialty Start Date End Date Howard Marlow MD [address] [place] [address] PCP - General Family Medicine 05/12/24
--- OUTSIDE RECORDS SUMMARY | 2024-06-08 19:13 | XMS_ITS | Patient Health Record ---
Author Organization [facility], Address [address] [place] [address] Care Team Providers Care Tip Printer Name Role Phone Howard Marlow Primary Care Provider Alex Anthony Unavailable [phone] JohnJelena Unavailable [phone] ALLERGIES Allergen (clinical drug ingredient) Drug/Non Drug [...] Lumbar radiculopathy (M54.16) Active confirmed Lumbar radiculopathy (291956513) Problem Herniated nucleus pulposus, lumbar (M51.26) Active confirmed Displacement of lumbar intervertebral disc without myelopathy (86329285) VITAL SIGNS Height 75 in 02/10/2024 Weight 230 lbs 02/10/2024 BMI 28.74 kg/m2 02/10/2024 PROCEDURES Procedure Date Ordered Date Performed Result Body Sit e Lumbar Epidural Steroid Injection 02/10/2024 02/10/2024 N/ A Lumbar Transforaminal Epidur al Steroid Injection 02/19/2024 02/24/2024 N/A Lumbar Transforaminal Epidur al Steroid Injection 05/20/2024 05/20/2024 N/A Encounters Encounter Location Date Provider Diagnosis [facility] [address] [place] [address] 02/10/2024 Jelena John Thoracic back pain M54.6 ; Spinal stenosis of lumbar region with neurogenic claudication M48.062 ; Lumbar radicular pain M54.16 ; Herniated nucleus pulposus, lumbar M51.26 and Other low back pain M54.59 [facility] [address] [address] 02/19/2024 Alex Lama Lumbar radiculopathy M54.16 [facility] [address] [facility] [address] [place] [address] 04/16/2024 Alex Lama [facility], [address] [place] [address] 05/20/2024 Alex Lama Lumbar radiculopathy M54.16 ASSESSMENTS Encounter Date Diagnosis Assessment Notes Treatment Notes Treatment Clinical Notes 02/10/2024 Thoracic back pain (ICD-10 - M54.6) 02/10/2024 Spinal stenosis of lumbar region with neurogenic claudication (ICD-10 - M48.062) 02/10/2024 Lumbar radicular melanie n (ICD-10 - M54.16) 02/19/2024 Lumbar radiculopathy (ICD-10 - M54.16) 05/20/2024 Lumbar radiculopathy (ICD-10 - M54.16) 02/10/2024 Herniated nucleus pulposus, lumbar (ICD-10 - M51.26) 02/10/2024 Other low back pain (ICD-10 - M54.59) PLAN OF TREATMENT No Information Insurance Providers Payer Name Payer Address Payer Phone Subscriber Number Group Number Insured Name Patient Relationship to Insured Coverage Start Date Coverage End Date [employer] [address] [place] [address] [id number] Anthony Walton Self - patient is the insured [place] [address] [address] [place] [address] [id number] Anthony Walton Self - patient is the insured [place] [address] [place] [address] [phone] [id number] Anthony Walton Self - patient is the insured MEDICAL (GENERAL) HISTORY Medical History History ICD Code Hypertension Depression Diabetes Surgical History Surgery Date(Month/Year) List not provided Hospitalization History Reason Date(Month/Year) None listed
--- OUTSIDE RECORDS SUMMARY | 2024-06-08 19:14 | XMS_ITS | Continuity of Care Document ---
Author Organization [facility] Address [address] [place] [address] [address] [place] [address] Phone Care Team Providers Care Supervisor Adult Education Name Role Phone Roma PT, DPT, Govind Unavailable Unavailable Procedures Procedure Date Doc neg elder mal no plan Therapeutic Activities Neuromuscular Re-Ed PT Evaluation Moderate Complexity Therapeutic Exercise THERAPEUTIC EXERCISES NEUROMUSCULAR RE-ED FUNC [...] Diagnoses Date Provider Providers Copied on Encounter [facility] [address], [id number], tel:[phone] [place] No Information 2 Roma Faust. . [facility], [id number], tel:[phone] [place] No Information 2 Roma Faust. . [facility], [id number], tel:[phone] [place] No Information Sep-0 9-201 5 Getachew Dotson. [address] [place] [address], [address], [facility], . tel:[phone] Referring Provider: Candelario Willis, [address] [place] [address], [place], [address]. tel:[phone] [facility] [address], [id number], tel:[phone] [place] No Information Sep-0 4-201 [address] [facility], [address], [place], [facility], . tel:[phone] Referring Provider: Candelario Lazaro, [address] [facility], [place], [address]. tel:[phone] [place] [address], [place], [place], [id number], tel:[phone] [place] No Information 8201 5 Chilel Nila. [address] [place] [address], [address], [place], [place], [facility], . tel:[phone] Referring Provider: Candelario Willis, [address] [facility], [place], [address]. tel:[phone] [place] [address], [place], [place], [id number], [place] tel:[phone] [place] No Information 6 5 Chilel Nila. [address] [place] [address], [address], [place], [facility], . tel:[phone] Referring Provider: Candelario Willis, [address], [place], [address]. tel:[phone] [place] [address], [place], [place], [id number], [place] tel:[phone] [place] No Information 2 5 Chilel Nila. [address] [place] [address], [address], [place], [facility], . tel:[phone] Referring Provider: Candelario Willis, [address] [facility], [place], [address]. tel:[phone] [place] [address], [place], [place], [id number], [place] tel:[phone] [place] No Information 2 1 5 Chilel Nila. [address] [place] [address], [address], [place], [facility], . tel:[phone] Referring Provider: Candelario Willis, [address], [place], [address]. tel:[phone] [facility] [address], [place], [place], [id number], tel:[phone] [place] No Information Chilel Nila. [address] [place] [address], [address] [address], . tel:[phone] Referring Provider: Candelario Willis, [address] [place] [address], [place], [facility]. tel:[phone] [place] [address], [place], [place], [id number], tel:[phone] [place] No Information Getachew Dotson. [address] [place] [address], [address], [place], [facility], . tel:[phone] Referring Provider: Candelario Willis, [address], [place], [address]. tel:[phone] [place] [address] [facility], [place], [place], [id number], tel:[phone] [place] No Information Bonnie Luther. [address] [place] [address], [address], [place], [facility], . tel:[phone] Referring Provider: Candelario Willis, [address], [place], [address]. tel:[phone] [place] [address], [place], [place], [id number], [place] tel:[phone] [place] No Information 0 5 Bonnie Luther. [address] [place] [address], [address], [place], [facility], . tel:[phone] Referring Provider: Candelario Willis, [address], [place], [address]. tel:[phone] [place] [address] [facility], [place], [place], [id number], tel:[phone] [place] No Information 7 5 Hauschild Homa. [address] [place] [address], [address], [place], [address], . tel:[phone] Referring Provider: Candelario Willis, [address] [place] [address], [address]. tel:[phone] [facility] [address] [facility], [place], [place], [id number], tel:[phone] [place] No Information -201 5 Hauschild Homa. [address] [place] [address], [address], [place], [address], . tel:[phone] Referring Provider: Nedra Saba E [address] [place] [address], [address]. tel:[phone] [facility] [address] [facility], [place], [place], [id number], tel:[phone] [place] No Information - 5 Hauschild Homa. [address] [place] [address], [address], [place], [address], [place]. tel:[phone] Referring Provider: Candelario Willis, Nedra E [address] [place] [address], [address]. tel:[phone] [facility] [address] [facility], [place], [id number], [place] tel:[phone] [place] No Information [address] [facility], [address], [place], [address], [place]. tel:[phone] Referring Provider: Nedra Saba E [address] [place] [address], [address]. tel:[phone] [facility] [facility], [place], [place], [id number], tel:[phone] [place] No Information 9- 5 Hauschild Homa. [address] [place] [address], [address], [place], [address], [place]. tel:[phone] Referring Provider: Candelario Willis, [address], [place], [address]. tel:[phone] [place] [address], [place], [place], [id number], [place] tel:[phone] [place] No Information 7-201 5 Nichol Piña. . Referring Provider: Candelario Willis, [address] [place] [address], [place], [address]. tel:[phone] [place] [address], [place], [id number], [place] tel:[phone] [place] No Information 4-201 5 Bonnie Luther. [address] [place] [address], [address], [place], [facility], [place]. tel:[phone] Referring Provider: Nedra Saba E [address] [place] [address], [place], [address]. tel:[phone] [place] [address], [place], [place], [id number], [place] tel:[phone] [place] No Information 2-201 5 Bonnie Luther. [address] [place] [address], [address], [place], [facility], [place]. tel:[phone] Referring Provider: Candelario Willis, [address], [place], [address]. tel:[phone] [place] [address], [place], [place], [id number], [place] tel:[phone] [place] No Information 0-201 5 Bonnie Luther. [address] [place] [address], [address], [place], [address], [place]. tel:[phone] Referring Provider: Nedra Saba E [address], [place], [address]. tel:[phone] [place] [address], [place], [id number], [place] tel:[phone] [place] No Information 7-201 5 Bonnie Luther. [address] [place] [address], [address], [place], [facility], . tel:[phone] Referring Provider: Candelario Willis, [address], [place], [address]. tel:[phone] [place] [address], [place], [place], [id number], [place] tel:[phone] [place] No Information 5-201 5 Bonnie Luther. [address] [place] [address], [address], [place], [facility], [place]. tel:[phone] Referring Provider: Nedra Saba E [address], [place], [address]. tel:[phone] [place] [address], [place], [place], [address], [place] tel:[phone] [place] No Information 3-201 5 Bonnie Luther. [address] [place] [address], [address], [place], [facility], [place]. tel:[phone] Referring Provider: Nedra Saba E [address], [place], [address]. tel:[phone] [place] [address], [place], [place], [id number], [place] tel:[phone] [place] No Information 0-201 5 Bonnie Luther. [address] [place] [address], [address], [place], [facility], [place]. tel:[phone] Referring Provider: Nedra Saba E [address], [place], [address]. tel:[phone] [place] [address], [id number], tel:[phone] [place] No Information 6 5 Hauschialeida Pinedafer. [address] [place] [address], [address], [place], [facility], . tel:[phone] Referring Provider: Candelario Willis, Nedra E [address] [place] [address], [facility]. tel:[phone], [id number], tel:[phone] [place] No Information 5 Haalfredohialeida Pindeafer. [address] [place] [address], [facility] [address] [address], . tel:[phone] Referring Provider: Candelario Willis, Nedra E [address] [place] [address], [facility]. tel:[phone], [id number], tel:[phone] [place] No Information 2 5 Hauschialeida Pinedafer. [address] [place] [address], [address], [place], [facility], . tel:[phone] Referring Provider: Candelario Willis, Nedra E [address] [place] [address], [facility]. tel:[phone], [id number], [phone] [place] Pain in joint involving forearm 5 Hauschialeida Pinedafer. [address] [place] [address], [address] [address], . tel:[phone] Referring Provider: Nedra Saba E [address] [place] [address], [facility]. tel:[phone] Family History Family Member Type Diagnosis Age At Onset No Information Payers Payer name Insurance type Covered constitution party ID Authormilkaa tova(s) Medicare [place] [id number] Social History Type Description Quantity Date Captured [...]
--- OUTSIDE RECORDS SUMMARY | 2024-06-08 19:14 | XMS_ITS | Continuity of Care Document ---
Author Organization [facility] Address [address] [place] [address] Phone Care Team Providers Care Forester Aide Name Role Phone Malcom Claudio MD Unavailable [...] Diagnoses Date Provider Providers Copied on Encounter [facility], [address], [place], [place], [id number], tel:[phone] [facility] No Information Shanon العراقي. [address], [place], [place], [id number], [place]. tel:[phone] Referring Provider: Alex Lama, [address], [place], [address]. tel:[phone] [facility], [address], [place], [place], [id number], tel:[phone] [facility] No Information Shaonn العراقي. [address], [place], [place], [id number], [place]. tel:[phone] Referring Provider: Alex Lama, [address], [place], [address]. tel:[phone] Family History Family Member Type Diagnosis Age At Onset No Information Payers Payer name Insurance type Covered constitution party ID Authoriza tivishal(s) [facility] [id number] [facility] [id number] MEDICARE [place] [id number] Social History Type Description Quantity Date Captured [...]
== END 2024-06-08 18:55 | disposition short-term general hospital (02) ==
PROVIDERS: Emergency Provider Nurse Practitioner; PCP Family Medicine Adolescent Medicine
DX: R06.02 Shortness of breath (principal); R51.9 Headache, unspecified; R20.0 Anesthesia of skin; R94.31 Abnormal electrocardiogram [ECG] [EKG]; Z87.891 Personal history of nicotine dependence; I10 Essential (primary) hypertension; E78.5 Hyperlipidemia, unspecified; N40.0 Benign prostatic hyperplasia without lower urinary tract symptoms; E11.9 Type 2 diabetes mellitus without complications; Z79.84 Long term (current) use of oral hypoglycemic drugs; E66.9 Obesity, unspecified; F41.9 Anxiety disorder, unspecified; Z86.73 Personal history of transient ischemic attack (TIA), and cerebral infarction without residual deficits; Z86.16 Personal history of COVID-19; Z79.82 Long term (current) use of aspirin
CPT/HCPCS: 82948; 93005; 99215; A9270; G0463

== ENCOUNTER 2024-08-28 09:05 | Outpatient (CLI) | payer MEDICARE, OTHER, SELFPAY ==
--- OUTSIDE RECORDS SUMMARY | 2024-08-28 09:08 | XMS_ITS | Referral Summary ---
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 Gender Identity Not on file Sexual Orientation Not on file Last Filed Vital Signs Vital Sign Reading Time Taken Comments Blood Pressure 116/83 09/16/2012 10:16 AM CDT Pulse - - Temperature - - Respiratory Rate - - Oxygen Saturation - - Inhaled Oxygen Concentration - - Weight 119.7 kg (264 lb) 09/16/2012 10:16 AM CDT Height 188 cm (6' 2) 09/16/2012 10:16 AM CDT Body Mass Index 33.9 09/16/2012 10:16 AM CDT Plan of Treatment Not on file Insurance [facility] Address: [facility] [id number] [place] [id number] [facility] Address: [facility] [id number] [place] [phone] [facility] MEDICARE [facility] MEDICARE [facility] Care Teams Mva Still Operator Relationship Specialty Start Date End Date Howard Marlow MD [address] [place] [address] PCP - General Family Medicine 05/12/24
--- OUTSIDE RECORDS SUMMARY | 2024-08-28 09:09 | XMS_ITS | Patient Health Record ---
Author Organization [facility], Address [address] [place] [address] Care Team Providers Care Bicycle Mechanic Name Role Phone Howard Marlow Primary Care Provider Alex Anthony Unavailable [phone] JohnJelena Unavailable [phone] ALLERGIES Allergen (clinical drug ingredient) Drug/Non Drug [...] or chemical addiction. He works for the [employer] and is currently on medical leave. PROBLEMS Problem Type ICD Code Onset Dates Problem Status W/U Status Risk SNOMED Code Notes Problem Lumbar radiculopathy (M54.16) Active confirmed Lumbar radiculopathy (013665002) Problem Herniated nucleus pulposus, lumbar (M51.26) Active confirmed Displacement of lumbar intervertebral disc without myelopathy (69149544) VITAL SIGNS Height 75 in 02/10/2024 Weight 230 lbs 02/10/2024 BMI 28.74 kg/m2 02/10/2024 PROCEDURES Procedure Date Ordered Date Performed Result Body Sit e Lumbar Epidural Steroid Injection 02/10/2024 02/10/2024 N/ A Lumbar Transforaminal Epidur al Steroid Injection 02/19/2024 02/24/2024 N/A Lumbar Transforaminal Epidur al Steroid Injection 05/20/2024 05/20/2024 N/A Encounters Encounter Location Date Provider Diagnosis [facility] [address] [address] 02/10/2024 Jelena John Thoracic back pain M54.6 ; Spinal stenosis of lumbar region with neurogenic claudication M48.062 ; Lumbar radicular pain M54.16 ; Herniated nucleus pulposus, lumbar M51.26 and Other low back pain M54.59 [facility] [address] [address] 02/19/2024 Alex Lama Lumbar radiculopathy M54.16 [facility], [address] [address] 04/16/2024 Alex Lama [facility] [address] [address] 05/20/2024 Alex Lama Lumbar radiculopathy M54.16 ASSESSMENTS [...] (Dictated but not read. Signed electronically by legal secretary to expedite) &[facility] countyp LV/mkd 02/10/2024 Spinal stenosis of lumbar region [...] (Dictated but not read. Signed electronically by legal secretary to expedite) &nbsp LV/mkd 02/10/2024 Lumbar [...] (Dictated but not read. Signed electronically by legal secretary to expedite) &nbsp LV/mkd 02/19/2024 Lumbar radiculopathy (ICD-10 - M54.16) 05/20/2024 [...] (Dictated but not read. Signed electronically by legal secretary to expedite) &nbsp LV/mkd 02/10/2024 Other low back pain (ICD-10 - [...] (Dictated but not read. Signed electronically by legal secretary to expedite) &nbsp LV/mkd PLAN OF TREATMENT No Information Insurance Providers Payer Name Payer Address Payer Phone Subscriber Number Group Number Insured Name Patient Relationship to Insured Coverage Start Date Coverage End Date [employer] [address] [place] [address] [id number] Anthony Walton Self - patient is the insured Medicare [place] [address] [address] [place] [address] [id number] Anthony Walton Self - patient is the insured [address] [place] [address] [id number] Anthony Walton Self - patient is the insured MEDICAL (GENERAL) HISTORY Medical History History ICD Code Hypertension Depression Diabetes Surgical History Surgery Date(Month/Year) List not provided Hospitalization History Reason Date(Month/Year) None listed
--- OUTSIDE RECORDS SUMMARY | 2024-08-28 09:09 | XMS_ITS ---
Author Organization [facility] Address [address] [place] [address] Care Team Providers Care Switchboard Manager Name Role Phone Howard Marlow Primary Care Provider Alex Anthony Unavailable [phone] REASON FOR VISIT Inj//schedule PROBLEMS Problem Type ICD Code Onset Dates Problem Status W/U Status Risk SNOMED Code Notes Problem Lumbar radiculopathy (M54.16) Active confirmed PROCEDURES Procedure Date Ordered Date Performed Result Body Sit e Lumbar Transforaminal Epidur al Steroid Injection 02/19/2024 02/24/2024 N/A Encounters Encounter Location Date Provider Diagnosis [facility] [address] [place] [address] 02/19/2024 Alex Lama Lumbar radiculopathy M54.16 ASSESSMENTS Encounter Date Diagnosis Assessment Notes Treatment Notes Treatment Clinical Notes Section Notes 02/19/2024 Lumbar radiculopathy (ICD-10 - M54.16) PLAN OF TREATMENT No Information
--- OUTSIDE RECORDS SUMMARY | 2024-08-28 09:09 | XMS_ITS ---
Author Organization [facility] Address [address] [place] [address] Care Team Providers Care Waste Machine Offbearer Name Role Phone Howard Marlow Primary Care Provider Alex Anthony Unavailable [phone] REASON FOR VISIT Release to work Encounters Encounter Location Date Provider Diagnosis [facility] [address] [place] [address] 04/16/2024 Alex Lama PLAN OF TREATMENT No Information
--- OUTSIDE RECORDS SUMMARY | 2024-08-28 09:09 | XMS_ITS | Clinical Summary ---
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
--- OUTSIDE RECORDS SUMMARY | 2024-08-28 09:09 | XMS_ITS ---
Author Organization [facility] Address [address] [address] Care Team Providers Care Foreign Languages Department Chair Name Role Phone Howard Marlow Primary Care Provider Alex Anthony Unavailable [phone] REASON FOR VISIT Scheduling PROCEDURES Procedure Date Ordered Date Performed Result Body Sit e Lumbar Transforaminal Epidur al Steroid Injection 05/20/2024 05/20/2024 N/A Encounters Encounter Location Date Provider Diagnosis [facility] [address] [facility] [address] [place] [address] 05/20/2024 Alex Lama Lumbar radiculopathy M54.16 ASSESSMENTS Encounter Date Diagnosis Assessment Notes Treatment Notes Treatment Clinical Notes Section Notes 05/20/2024 Lumbar radiculopathy (ICD-10 - M54.16) PLAN OF TREATMENT No Information
--- NOTE | 2024-08-29 14:23 | WPDSIXMINUTE ---
Six Minute Walk Procedure Procedure Performed Pulmonary Stress Test (6 min walk) Six Minute Walk Six Minute Walk: This is a 6 minute walk test. The test was performed and interpreted in accordance with the 2014 ERS/ATS task force guidelines. Findings: The patient's resting room air oxygen saturation measured by pulse oximetry was 96%, the heart rate was 53 bpm, and the modified Kenneth dyspnea score was 0. Patient ambulated for 427 meters and oxygen saturation remained 93 to 95%. At the end of the study the heart rate was 67 bpm and the modified Kenneth dyspnea score was 0.5. The patient did not qualify for supplemental oxygen at rest or with ambulation. There are no prior studies for comparison.
--- NOTE | 2024-08-29 14:25 | WPDPFTINT ---
PFT Procedure Performed PFT Procedure Performed Spirometry with Pre/Post Bronchodilator Plethysmography (Lung Vol) Diffusing Cap (DLCO) Flow Vol Loop PFT Interpretation This is a pulmonary function test with pre and post-bronchodilator spirometry, plethysmography and diffusing capacity. The test was performed and results interpreted in accordance with the 2019 and 2005 ATS/ERS Task Force guidelines respectively using the Global Lung Function Initiative-2012 reference equations. Patient demonstrated good effort and cooperation. Reproducibility criteria were met. The quality of the pre bronchodilator spirometry maneuver was Grade A and post bronchodilator spirometry maneuver was Grade A. Findings: Spirometry: The contour the inspiratory and expiratory flow tracing are normal. The pre bronchodilator FVC is 4.63 L, 90% predicted. The pre bronchodilator FEV1 is 3.35 L, 87% predicted. The pre bronchodilator FEV1: FVC ratio is 72%. The post bronchodilator FVC is 4.50 L, representing a 3% decrease. The post bronchodilator FEV1 is 3.45 L, representing a 3% increase. The post bronchodilator FEV1: FVC ratio 77%. Plethysmography: The total lung capacity is 6.89 L, 85% predicted. The functional residual capacity is 3.50 L, 81% predicted. The residual volume is 2.26 L, 84% predicted. Diffusing capacity: The diffusing capacity unadjusted for hemoglobin and carboxyhemoglobin is 22.3, 78% predicted. The diffusing capacity adjusted for alveolar volume is 3.31, 89% predicted. Impression: The spirometry is normal without evidence of an obstructive abnormality. There is no significant improvement after inhaling a single dose of albuterol. The lung volumes are normal. The diffusing capacity is normal. There are no prior studies for comparison
== END 2024-08-28 09:06 | disposition home or self-care (01) ==
PROVIDERS: PCP Family Medicine Adolescent Medicine; Visit Provider Internal Medicine Critical Care Medicine
DX: R06.09 Other forms of dyspnea (principal)
CPT/HCPCS: 94060; 94618; 94726; 94729

== ENCOUNTER 2025-02-12 12:19 | Emergency (ER) | payer MEDICARE, OTHER, SELFPAY ==
--- OUTSIDE RECORDS SUMMARY | 2024-02-10 02:00 | XMS_ITS ---
Author Organization [facility] , Address [address] [facility] [address] [place] [address] Care Team Providers Care Political Anthropologist Name Role Phone Howard Marlow Primary Care Provider Alex Anthony Unavailable [phone] JohnJelena Unavailable [phone] ALLERGIES Allergen (clinical drug ingredient) Drug/Non Drug Allergy documented on EMR Reaction Allergy Type Onset Date Status oxycodone OxyCONTIN Unknown Drug Allergy Active adenosine Adenosine Unknown Drug Allergy Active RESULTS Component Value Reference Range Notes X ray : Thoracic Spine 3 vie ws, AP, Lateral, Swimmers Reviewed date:02/10/2024 08:47:53 AM Interpretation:840 Performing Lab: Notes/Report: 840 X ray : Lumbar Spine 3 views , AP, Lateral, Spot Reviewed date:02/10/2024 08:47:58 AM Interpretation:815 Performing Lab: Notes/Report: 815 REASON FOR VISIT Lumbar MEDICATIONS Medication SIG (Take, Route, Frequency, Duration) Notes Start Date End Date Status Multivitamin Active Actos Active Escitalopram Oxalate Active Finasteride Active Vitamin B Complex Ac tive Apple Cider Vinegar Active FiberCon Active Vitamin D3 Active Vitamin B6 Active Vitamin B 12 Active Simvastatin Active Omeprazole Active Amlodipine & Diet Manage Prod Active Lisinopril Active Diclofenac Active Tadalafil Active Glimepiride Active traZODone HCl Active Gabapentin Active Tamsulosin HCl Activ e Senna Active Aspirin Active diazePAM Active SOCIAL HISTORY Tobacco Use: Social History Observation Description Date Details (start date - stop date) Never Smoker NA - NA Sex Assigned At : Social History Observation Description Sex Assigned At Unknown Tobacco Use/Smoking Question Answer Notes Are you a nonsmoker Section Notes: He is with one child . He denies use of alcohol. He denies drug or chemical addiction. He works for the [employer] and is currently on medical leave. PROBLEMS Problem Type ICD Code Onset Dates Problem Status W/U Status Risk SNOMED Code Notes Problem Herniated nucleus pulposus, lumbar (M51.26) Active confirmed Displacement of lumbar intervertebral disc without myelopathy (35964996) VITAL SIGNS BMI 28.74 kg/m2 02/10/2024 Height 75 in 02/10/2024 Weight 230 lbs 02/10/2024 PROCEDURES Procedure Date Ordered Date Performed Result Body Sit e Lumbar Epidural Steroid Injection 02/10/2024 02/10/2024 N/ A Encounters Encounter Location Date Provider Diagnosis [facility] [place] [address] [address] 02/10/2024 Jelena Lopez Thoracic back pain M54.6 ; Spinal stenosis of lumbar region with neurogenic claudication M48.062 ; Lumbar radicular pain M54.16 ; Herniated nucleus pulposus, lumbar M51.26 and Other low back pain M54.59 ASSESSMENTS Encounter Date Diagnosis Assessment Notes Treatment Notes Treatment Clinical Notes Section Notes 02/10/2024 Thoracic back pain (ICD-10 - M54.6) &nbsp 1. Lumbar Stenosis 2. Lumbar Radiculopathy 3. Lumbar HNP &nbsp <b>PLAN:</b> We will set Mr. Walton up for an L4 to 5 epidural steroid injection. He will contact our office one week after this to update us on his response. If this does not provide him improvement, we would then try a left L5 to S1 transforaminal epidural steroid injection. If we alleviate his leg symptoms with these injections, we would then consider referral for radiofrequency ablation for his back pain. &nbsp With regard to his thoracic pain, there are no obvious fractures. I recommend he continue his therapy exercises. &nbsp Thank you for allowing us to participate in the care of your patient. &nbsp Sincerely, &nbsp PIA Cagle The patient's exam findings and imaging studies were reviewed with Alex Lama M.D. (Dictated but not read. Signed electronically by laboratory secretary to expedite) &nbsp LV/mkd 02/10/2024 Spinal stenosis of lumbar region with neurogenic claudication (ICD-10 - M48.062) &nbsp 1. Lumbar Stenosis 2. Lumbar Radiculopathy 3. Lumbar HNP &nbsp <b>PLAN:</b> We will set Mr. Walton up for an L4 to 5 epidural steroid injection. He will contact our office one week after this to update us on his response. If this does not provide him improvement, we would then try a left L5 to S1 transforaminal epidural steroid injection. If we alleviate his leg symptoms with these injections, we would then consider referral for radiofrequency ablation for his back pain. &nbsp With regard to his thoracic pain, there are no obvious fractures. I recommend he continue his therapy exercises. &nbsp Thank you for allowing us to participate in the care of your patient. &nbsp Sincerely, &nbsp PIA Cagle The patient's exam findings and imaging studies were reviewed with Alex Lama M.D. (Dictated but not read. Signed electronically by laboratory secretary to expedite) &nbsp LV/mkd 02/10/2024 Lumbar radicular pain (ICD-10 - M54.16) &nbsp 1. Lumbar Stenosis 2. Lumbar Radiculopathy 3. Lumbar HNP &nbsp <b>PLAN:</b> We will set Mr. Walton up for an L4 to 5 epidural steroid injection. He will contact our office one week after this to update us on his response. If this does not provide him improvement, we would then try a left L5 to S1 transforaminal epidural steroid injection. If we alleviate his leg symptoms with these injections, we would then consider referral for radiofrequency ablation for his back pain. &nbsp With regard to his thoracic pain, there are no obvious fractures. I recommend he continue his therapy exercises. &nbsp Thank you for allowing us to participate in the care of your patient. &nbsp Sincerely, &nbsp PIA Cagle The patient's exam findings and imaging studies were reviewed with Alex Lama M.D. (Dictated but not read. Signed electronically by laboratory secretary to expedite) &nbsp LV/mkd 02/10/2024 Herniated nucleus pulposus, lumbar (ICD-10 - M51.26) &nbsp 1. Lumbar Stenosis 2. Lumbar Radiculopathy 3. Lumbar HNP &nbsp <b>PLAN:</b> We will set Mr. Walton up for an L4 to 5 epidural steroid injection. He will contact our office one week after this to update us on his response. If this does not provide him improvement, we would then try a left L5 to S1 transforaminal epidural steroid injection. If we alleviate his leg symptoms with these injections, we would then consider referral for radiofrequency ablation for his back pain. &nbsp With regard to his thoracic pain, there are no obvious fractures. I recommend he continue his therapy exercises. &nbsp Thank you for allowing us to participate in the care of your patient. &nbsp Sincerely, &nbsp PIA Cagle The patient's exam findings and imaging studies were reviewed with Alex Lama M.D. (Dictated but not read. Signed electronically by laboratory secretary to expedite) &nbsp LV/mksusan 02/10/2024 Other low back pain (ICD-10 - M54.59) &nbsp 1. Lumbar Stenosis 2. Lumbar Radiculopathy 3. Lumbar HNP &nbsp <b>PLAN:</b> We will set Mr. Walton up for an L4 to 5 epidural steroid injection. He will contact our office one week after this to update us on his response. If this does not provide him improvement, we would then try a left L5 to S1 transforaminal epidural steroid injection. If we alleviate his leg symptoms with these injections, we would then consider referral for radiofrequency ablation for his back pain. &nbsp With regard to his thoracic pain, there are no obvious fractures. I recommend he continue his therapy exercises. &nbsp Thank you for allowing us to participate in the care of your patient. &nbsp Sincerely, &nbsp PIA Cagle The patient's exam findings and imaging studies were reviewed with Alex Lama M.D. (Dictated but not read. Signed electronically by laboratory secretary to expedite) &nbsp LV/mksusan PLAN OF TREATMENT Next Appt Details Provider Name:Alex Lama, 03/02/2025 08:00:00 AM, [address], [address], Progress Notes * Examination Category Sub-Category Detail Notes Category Notes X-Ray LUMBAR X-RAY: AP and lateral v iews of the lumbar spine were obtained today. They demonstrate mild disc degeneration from L4 to S1. L4 to 5 shows spondylolisthesis measuring approximately 4 mm of anterior translation. 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 They demonstrate mild diffuse degenerative changes. There are no obvious fractures or instability. MRI Imaging Studies LUMBAR SPINE MRI: MRI of the lumbar spine from 10/25/2023 demonstrates L2 to 3 with mild bilateral lateral recessed stenosis and mild to moderate facet arthropathy. L3 to 4 shows moderate bilateral facet arthropathy and mild to moderate bilateral lateral recessed stenosis. L4 to 5 shows advanced facet arthropathy, a degenerative spondylolisthesis, and moderate left greater than right lateral recessed stenosis. L5 to S1 shows a left sided disc herniation causing moderate to severe left lateral recessed stenosis and left foraminal stenosis &nbsp <b>Physical Examination: </b> The patient is a well developed, well nourished 68-year-old male. He is 6' 3 tall and weighs 230 pounds. He appears his stated age. Mood is calm. Alert and oriented x 3. Gait: He uses a cane for assistance. ROM: He has diminished lumbar flexion and extension, reproducing low back pain. Spine Observation: No excessive lordosis or kyphosis, no scoliosis, and no scars or hair patches. Hips appear level. Palpation: He has tenderness over the midline thoracic region, and tenderness over the left and right lumbar paraspinal muscles. Neuro Exam: Lumbar Exam The patient demonstrates 5 over 5 strength in bilateral hip adductors, abductors, quadriceps, hamstrings, ankle dorsiflexion, plantar flexion, and EHL. Patellar reflex on the left is absent, right is 1, and Achilles' reflexes are absent bilaterally. There is no ankle clonus. Sensation is intact to pin prick throughout the lower extremities. Extremities: Hip/Knee Exam The patient's hips and knees have full, painless range of motion and are stable to manipulation bilaterally. Pulses: The dorsalis pedis pulse is palpable. There is no clubbing, cyanosis, or edema in the lower extremities. The skin is intact. &nbsp Special Tests: Straight leg raise is negative bilaterally.
--- OUTSIDE RECORDS SUMMARY | 2024-02-19 05:32 | XMS_ITS ---
Author Organization [facility] Address [address] [place] [address] Care Team Providers Care Mill Work Name Role Phone Howard Marlow Primary Care Provider Alex Anthony Unavailable [phone] REASON FOR VISIT Inj//schedule PROBLEMS Problem Type ICD Code Onset Dates Problem Status W/U Status Risk SNOMED Code Notes Problem Lumbar radiculopathy (M54.16) Active confirmed Lumbar radiculopathy ([id number]) PROCEDURES Procedure Date Ordered Date Performed Result Body Sit e Lumbar Transforaminal Epidur al Steroid Injection 02/19/2024 02/24/2024 N/A Encounters Encounter Location Date Provider Diagnosis [facility], [address] [facility] [address] [place] [address] 02/19/2024 Alex Lama Lumbar radiculopathy M54.16 ASSESSMENTS Encounter Date Diagnosis Assessment Notes Treatment Notes Treatment Clinical Notes Section Notes 02/19/2024 Lumbar radiculopathy (ICD-10 - M54.16) PLAN OF TREATMENT Next Appt Details Provider Name:Alex Lama, 03/02/2025 08:00:00 AM, [address], [address], [place], [address],
--- OUTSIDE RECORDS SUMMARY | 2024-04-16 07:54 | XMS_ITS ---
Author Organization [facility], Address [address] [facility] [address] [place] [address] Care Team Providers Care Drafter Marine Name Role Phone Howard Marlow Primary Care Provider Alex Anthony Unavailable [phone] REASON FOR VISIT Release to work Encounters Encounter Location Date Provider Diagnosis [facility], [address] [facility] [address] [place] [address] 04/16/2024 Alex Lama PLAN OF TREATMENT Next Appt Details Provider Name:Alex Lama, 03/02/2025 08:00:00 AM, [address], [facility] [address], [place], [address],
--- OUTSIDE RECORDS SUMMARY | 2024-05-20 04:52 | XMS_ITS ---
Author Organization [facility] Address [address] [facility] [address] [place] [address] Care Team Providers Care Machine Attendant Name Role Phone Howard Marlow Primary Care Provider Alex Anthony Unavailable [phone] REASON FOR VISIT Scheduling PROCEDURES Procedure Date Ordered Date Performed Result Body Sit e Lumbar Transforaminal Epidur al Steroid Injection 05/20/2024 05/20/2024 N/A Encounters Encounter Location Date Provider Diagnosis [facility] [address] [facility] [address] [place] [address] 05/20/2024 Alex Lama Lumbar radiculopathy M54.16 ASSESSMENTS Encounter Date Diagnosis Assessment Notes Treatment Notes Treatment Clinical Notes Section Notes 05/20/2024 Lumbar radiculopathy (ICD-10 - M54.16) PLAN OF TREATMENT Next Appt Details Provider Name:Alex Lama, 03/02/2025 08:00:00 AM, [address], [facility] [address], [place], [address],
--- OUTSIDE RECORDS SUMMARY | 2025-01-20 04:00 | XMS_ITS ---
Author Organization [facility] , Address [address] [facility] [address] [place] [address] Care Team Providers Care National Accounts Recruiter Name Role Phone Howard Marlow Primary Care Provider Alex Anthony Unavailable [phone] MalihaJelena rhodes Unavailable [phone] ALLERGIES Allergen (clinical drug ingredient) Drug/Non Drug Allergy documented on EMR Reaction Allergy Type Onset Date Status oxycodone OxyCONTIN Unknown Drug Allergy Active adenosine Adenosine Unknown Drug Allergy Active RESULTS Component Value Reference Range Notes MRI : Lumbar without contras t Reviewed date:01/20/2025 10:59:17 AM Interpretation: Performing Lab: Notes/Report: X ray : Lumbar Spine 3 views , AP, Lateral, Spot Reviewed date:01/20/2025 12:08:27 PM Interpretation: Performing Lab: Notes/Report: REASON FOR VISIT Lumbar MEDICATIONS Medication SIG (Take, Route, Frequency, Duration) Notes Start Date End Date Status Omeprazole Unknown Simvastatin Unknown Lisinopril Unknown Amlodipine & Diet Manage Prod Unknown Diclofenac Unknown traZODone HCl Unknow n Glimepiride Unknown Gabapentin Unknown Tadalafil Unknown Tamsulosin HCl Unkno wn Escitalopram Oxalate Unknown Senna Unknown Finasteride Unknown diazePAM Unknown Aspirin Unknown Actos Unknown Vitamin B6 Unknown Vitamin B Complex Un known Vitamin B 12 Unknown Multivitamin Unknown FiberCon Unknown Apple Cider Vinegar Unknown Vitamin D3 Unknown SOCIAL HISTORY Tobacco Use: Social History Observation [...] or chemical addiction. He works for the [employer]. Encounters Encounter Location Date Provider Diagnosis [facility] [address] [place] [address] [place] [address] 01/20/2025 Jelena Lopez Lumbar radiculopathy M54.16 ; Spondylolisthesis of lumbar region M43.16 and Other low back pain M54.59 ASSESSMENTS Encounter Date Diagnosis Assessment Notes Treatment Notes Treatment Clinical Notes Section Notes 01/20/2025 Lumbar radiculopathy (ICD-10 - M54.16) &nbsp 1. Low Back Pain 2. Lumbar Spondylolisthesi s 3. Lumbar Radiculopathy &nbsp <b>PLAN:</b> We will send Mr. Walton for a new MRI of the lumbar spine. He is interested in more definitive treatment. After his imaging is reviewed, if surgical intervention is recommended, I would have him follow up with Dr. Lama to discuss surgical procedure and recovery. &nbsp Thank you for allowing us to participate in the care of your patient. &nbsp Sincerely, &nbsp Jelena Lopez, ANP &nbsp The patient's exam findings and imaging studies were reviewed with Alex Lama M.D. (Dictated but not read. Signed electronically by engineering secretary to expedite) APURVA/sweetie 01/20/2025 Spondylolisthesis of lumbar region (ICD-10 - M43.16) &nbsp 1. Low Back Pain 2. Lumbar Spondylolisthesi s 3. Lumbar Radiculopathy &nbsp <b>PLAN:</b> We will send Mr. Walton for a new MRI of the lumbar spine. He is interested in more definitive treatment. After his imaging is reviewed, if surgical intervention is recommended, I would have him follow up with Dr. Lama to discuss surgical procedure and recovery. &nbsp Thank you for allowing us to participate in the care of your patient. &nbsp Sincerely, &nbsp Jelena Lopez, PIA &nbsp The patient's exam findings and imaging studies were reviewed with Alex Lama M.D. (Dictated but not read. Signed electronically by engineering secretary to expedite) APURVA/sweetie 01/20/2025 Other low back pain (ICD-10 - M54.59) &nbsp 1. Low Back Pain 2. Lumbar Spondylolisthesi s 3. Lumbar Radiculopathy &nbsp <b>PLAN:</b> We will send Mr. Walton for a new MRI of the lumbar spine. He is interested in more definitive treatment. After his imaging is reviewed, if surgical intervention is recommended, I would have him follow up with Dr. Lama to discuss surgical procedure and recovery. &nbsp Thank you for allowing us to participate in the care of your patient. &nbsp Sincerely, &nbsp Jelena Lopez, ANP &nbsp The patient's exam findings and imaging studies were reviewed with Alex Lama M.D. (Dictated but not read. Signed electronically by engineering secretary to expedite) LV/mkd PLAN OF TREATMENT Next Appt Details Provider Name:Alex Lama, 03/02/2025 08:00:00 AM, [address] , [place] [address], [place], [address], Progress Notes * Examination Category Sub-Category Detail Notes Category Not es X-Ray LUMBAR X-RAY: AP and lateral views of the lumbar spine were obtained today. They demonstrate L4 to 5 with a degenerative spondylolisthesis measuring approximately 4 mm of anterior translation. L5 to S1 shows moderate disc degeneration &nbsp On physical examination he has good strength in bilateral lower extremities with manual motor testing. He has tenderness to palpation over the left greater than right lumbar paraspinal muscles and in the midline lower lumbar region. He has some difficulty with toe walking due to pain and intolerance of exam. Heel walking was not assessed.
--- OUTSIDE RECORDS SUMMARY | 2025-01-26 08:45 | XMS_ITS ---
Author Organization [facility] , Address [address] [facility] [address] [place] [address] Care Team Providers Care Field Coordinator Name Role Phone Howard Marlow Primary Care Provider Alex Anthony Unavailable [phone] REASON FOR VISIT MRI Encounters Encounter Location Date Provider Diagnosis [facility], [address] [facility] [address] [place] [address] 01/26/2025 Alex Lama PLAN OF TREATMENT Next Appt Details Provider Name:Alex Lama, 03/02/2025 08:00:00 AM, [address], [facility] [address], [place], [address],
--- OUTSIDE RECORDS SUMMARY | 2025-01-28 03:30 | XMS_ITS ---
Author Organization [facility] , Address [address] [facility] [address] [place] [address] Care Team Providers Care Mock Up Assembler Name Role Phone Howard Marlow Primary Care Provider Alex Anthony Unavailable [phone] REASON FOR VISIT Mri Encounters Encounter Location Date Provider Diagnosis [facility], [address] [facility] [address] [place] [address] 01/28/2025 Alex Lama PLAN OF TREATMENT Next Appt Details Provider Name:Alex Lama, 03/02/2025 08:00:00 AM, [address], [facility] [address], [place], [address],
--- OUTSIDE RECORDS SUMMARY | 2025-02-09 06:22 | XMS_ITS ---
Author Organization [facility] , Address [address] [place] [address] [place] [address] Care Team Providers Care Sugarcane Research Technician Name Role Phone Howard Marlow Primary Care Provider Alex Anthony Unavailable [phone] REASON FOR VISIT MRI Results Encounters Encounter Location Date Provider Diagnosis [facility], [address] [place] [address] [place] [address] 02/09/2025 Alex Lama PLAN OF TREATMENT Next Appt Details Provider Name:Alex Lama, 03/02/2025 08:00:00 AM, [address], [address], [place], [address],
--- OUTSIDE RECORDS SUMMARY | 2025-02-10 10:29 | XMS_ITS ---
Author Organization [facility] , Address [address] [place] [address] [place] [address] Care Team Providers Care Paper Cup Handle Machine Operator Name Role Phone Howard Marlow Primary Care Provider Alex Anthony Unavailable [phone] REASON FOR VISIT SNN MRI Lumbar 01-25-25 Encounters Encounter Location Date Provider Diagnosis [facility], [address] [place] [address] [place] [address] 02/10/2025 Alex Lama PLAN OF TREATMENT Next Appt Details Provider Name:Alex Lama, 03/02/2025 08:00:00 AM, [address], [address], [place], [address],
--- OUTSIDE RECORDS SUMMARY | 2025-02-12 12:22 | XMS_ITS | Patient Health Record ---
Author Organization [facility] , Address [address] [place] [address] [place] [address] Care Team Providers Care Medical Detail Representative Name Role Phone Howard Marlow Primary Care Provider Alex Anthony Unavailable [phone] MalihaJelena rhodes Unavailable [phone] ALLERGIES Allergen (clinical drug ingredient) Drug/Non Drug [...] PM Interpretation: Performing Lab: Notes/Report: REASON FOR REFERRAL No Information MEDICATIONS Medication SIG (Take, Route, Frequency, Duration) Notes Start Date End Date Status Escitalopram Oxalate Unknown Omeprazole Unknown Actos Unknown Simvastatin Unknown Senna Unknown Lisinopril Unknown Finasteride Unknown Amlodipine & Diet Manage Prod Unknown FiberCon Unknown diazePAM Unknown Apple Cider Vinegar Unknown Aspirin Unknown Diclofenac Unknown Vitamin B6 Unknown traZODone HCl Unknow n Vitamin D3 Unknown Glimepiride Unknown Multivitamin Unknown Tadalafil Unknown Tamsulosin HCl Unkno wn Vitamin B Complex Un known Vitamin B 12 Unknown Gabapentin Unknown SOCIAL HISTORY Tobacco Use: Social History [...] or chemical addiction. He works for the [employer] and is currently on medical leave. He is with one child . He denies use of alcohol. He denies drug or chemical addiction. He works for the [employer]. PROBLEMS Problem Type ICD Code Onset Dates Problem Status W/U Status Risk SNOMED Code Notes Problem Lumbar radiculopathy (M54.16) Active confirmed Lumbar radiculopathy (900198728) Problem Herniated nucleus pulposus, lumbar (M51.26) Active confirmed Displacement of lumbar intervertebral disc without myelopathy (26873093) Problem Low back pain (M54.5) Active confirmed Low back pain (953258717) PROCEDURES Procedure Date Ordered Date Performed Result Body Sit e Lumbar Transforaminal Epidur al Steroid Injection 02/19/2024 02/24/2024 N/A Lumbar Transforaminal Epidur al Steroid Injection 05/20/2024 05/20/2024 N/A Encounters Encounter Location Date Provider Diagnosis [facility] [address] [address] 01/20/2025 Jelena Lopez Lumbar radiculopathy M54.16 ; Spondylolisthesis of lumbar region M43.16 and Other low back pain M54.59 [facility] [address] [address] 02/19/2024 Alex Lama Lumbar radiculopathy M54.16 [facility] [address] [address] 04/16/2024 Alex Lama [facility] [address] [address] 05/20/2024 Alex Lama Lumbar radiculopathy M54.16 [facility] [address] [address] 01/26/2025 Alex Lama [facility] [address] [address] 01/28/2025 Alex Lama [facility] [address] [address] 02/09/2025 Alex Lama [facility] [address] [place] [address] 02/10/2025 Alex Lama ASSESSMENTS Encounter Date Diagnosis Assessment [...] (Dictated but not read. Signed electronically by confidential secretary to expedite) APURVA/sweetie 01/20/2025 Spondylolisthesis of [...] (Dictated but not read. Signed electronically by confidential secretary to expedite) APURVA/sweetie 01/20/2025 Other low [...] (Dictated but not read. Signed electronically by confidential secretary to expedite) LV/mkd 02/19/2024 Lumbar radiculopathy (ICD-10 - M54.16) 05/20/2024 Lumbar radiculopathy (ICD-10 - M54.16) PLAN OF TREATMENT Next Appt Details Provider Name:Alex Lama, 03/02/2025 08:00:00 AM, [address] [facility] [address], [place], [address], Insurance Providers Payer Name Payer Address Payer Phone Subscriber Number Group Number Insured Name Patient Relationship to Insured Coverage Start Date Coverage End Date Medicare [place] [address] [address] [place] [address] [id number] Anthony Walton Self - patient is the insured [place] [employer] [place] [address] [place] [address] [id number] Anthony Walton Self - patient is the insured MEDICAL (GENERAL) HISTORY Medical History History ICD Code Hypertension Depression Diabetes Surgical History Surgery Date(Month/Year) List not provided Hospitalization History Reason Date(Month/Year) As per above.
--- OUTSIDE RECORDS SUMMARY | 2025-02-12 12:23 | XMS_ITS | Clinical Summary ---
Author Organization [facility] [address] [facility] Address [address] [place] [address] Care Team Providers Care Shipping Inspector Name Role Phone Howard Marlow MD Primary [...] on file Legal Sex Male 11:24 PM [employer] Gender Identity Not on file Sexual Orientation [...] Visit 65+ 2021 Covid-19 Vaccine ( - 2024- season) 2024, 05/26/2020 Influenza Vaccine (#1) 2024 12/13/2020 Zoster Vaccine Completed 12/13/2020, 11/20/2019 Insurance [facility] H[facility]/PPO Address: [facility] [id number] [place] [phone] [facility] [place] [address] MEDICARE [facility] MEDICARE [facility] Care Teams Shipping Inspector Relationship Specialty Start Date End Date Howard Marlow MD PCP - General Family Medicine 05/12/24
--- OUTSIDE RECORDS SUMMARY | 2025-02-12 12:23 | XMS_ITS | Clinical Summary ---
Author Organization [facility] Address [facility] [place] [address] Care Team Providers Care Angle Shearer Name Role Phone Howard Marlow MD Primary Care Provider [phone] Allergies Active Allergy Reactions Criticality Noted Date Comments Adenosine Anaphylaxis High 06/20/2023 Heart stopped for 20 seconds Oxycodone Hallucinations 06/20/2023 Medications No known medications Social History Tobacco Use Types Packs/Day Years Used Date Smoking Tobacco: Never Smokeless Tobacco: Never Tobacco Cessation:Counseling Given: Not Answered Alcohol Use Standard Drinks/Week Comments Not Currently 0 (1 standard drink = 0.6 oz pur e alcohol) Quit 4 years ago Sex and Gender Information Value Date Recorded Sex Assigned at Male 06/08/2024 7:53 PM CDT Legal Sex Male 7:25 PM CDT Gender Identity Not on file Sexual Orientation Not on file Last Filed Vital Signs Vital Sign Reading Time Taken Comments Blood Pressure 114/60 06/08/2024 10:05 PM CDT Pulse 56 06/08/2024 10:05 PM CDT Temperature 36.4 C (97.6 F) 06/08/2024 7:33 PM CDT Respiratory Rate 17 06/08/2024 10:0 5 PM CDT Oxygen Saturation 97% 06/08/2024 10: 05 PM CDT Inhaled Oxygen Concentration - - Weight 108.9 kg (240 lb 1.3 oz) 06/08/2024 7:33 PM CDT Height 190.5 cm (6' 3) 06/08/2024 7:33 PM CDT Body Mass Index 30.01 06/08/2024 7:33 PM CDT Plan of Treatment Health Maintenance Due Date Last Done Comments Colorectal Cancer Screening Colonoscopy (10 Years) 1955 Hepatitis C 1974 DTaP, Tdap and Td Vaccines ( 1 - Tdap) 06/06/1975 Pneumococcal Vaccine: 50+ Years (1 of 1 - PCV) 2006 Annual Medicare Wellness Visit 2021 COVID-19 Vaccine (4 - 2024-2 6 season) 2024 02/25/2021, 06/18/2020, 05/26/2020 Influenza Adult (#1) 2024 01/10/2023, 12/13/2020 RSV Immunization or 60+ Years (1 - 1-dose 75+ series) 06/06/2031 Zoster Vaccines Completed 12/13/2020, 11/20/2019 Hepatitis A Vaccines Aged Out No long er eligible based on patient's age to complete this topic Meningococcal B Vaccine Aged Out No l onger eligible based on patient's age to complete this topic Meningococcal Vaccine Aged Out No zenobia miguel eligible based on patient's age to complete this topic RSV Immunizations Under 20 Months Aged Out No longer eligible b ased on patient's age to complete this topic Insurance [place] [address] [employer] Care Teams Angle Shearer Relationship Specialty Start Date End Date Howard Marlow MD [address] [address] PCP - General FAMILY PRACTICE 06/20/23
[2025-02-12 12:30] VITALS: BP 132/68; PULSE 50; RESP 18; TEMP 36.2; O2SAT 98
--- NOTE | 2025-02-12 16:49 | ED.SKABFB ---
HPI - Skin/Abscess/Foreign Bdy General Chief complaint: Skin/Abscess/Foreign Body Stated complaint: rash Time Seen by Provider: 02/12/25 12:32 Source: patient and RN notes reviewed Mode of arrival: ambulatory Limitations: no limitations History of Present Illness HPI narrative: 69-year-old male patient presents today complaining severely pruritic rash to the bilateral forearms, small patch to the left knee and patch to the right thigh. Symptoms have been present for 3 days. Prior to this patient was trimming branches at his home a few days prior to the rash beginning. States he did not have contact with any poison ryan etc.. He initially cleaned rash with alcohol and has been applying some [id number] ointment in anti-itch cream with some short-term relief. Patient is supposed to dress up in long sleeves tonight and tomorrow and is concerned because the arms are itching so bad. Related Data Home Medications ?Medication ?Instructions ?Recorded ?Confirmed ?Last Taken ?Type ascorbic acid (vitamin C) 1,000 mg 1 g PO HS 02/24/20 10/21/24 04/05/23 21:00 History tablet coenzyme Q10 300 mg capsule (Co 300 mg PO HS 02/24/20 10/21/24 04/05/23 21:00 History Q-10) cyanocobalamin (vitamin B-12) 1,000 mcg PO HS 02/24/20 10/21/24 04/05/23 21:00 History 1,000 mcg tablet,extended release (Vitamin B-12 ER) multivitamin 1 tablet PO HS 02/24/20 10/21/24 04/05/23 21:00 History pyridoxine (vitamin B6) 100 mg 100 mg PO HS 02/24/20 10/21/24 04/05/23 21:00 History tablet (Vitamin B-6) vitamin B complex 2 cap PO HS 02/24/20 10/21/24 04/05/23 21:00 History cholecalciferol (vitamin D3) 25 25 mcg PO HS 09/12/21 10/21/24 04/05/23 21:00 History mcg (1,000 unit) capsule apple cider vinegar 600 mg capsule 600 mg PO HS 02/11/23 10/21/24 04/05/23 21:00 History Allergies Allergy/AdvReac Type Severity Reaction Status Date / Time adenosine Allergy Severe Anaphylactic Verified 02/12/25 12:28 Shock oxycodone (From OxyContin) Allergy Severe Hallucinati Verified 02/12/25 12:28 ng PMFSH Past Medical History Medical History BMI 31.0-31.9,adult RSV (respiratory syncytial virus pneumonia) Shingles Duodenal ulcer Transient ischemic attack Patent foramen ovale Benign prostatic hyperplasia Insulin dependent type 2 diabetes mellitus Multifocal pneumonia COVID-19 COVID-19 Hearing loss Obesity Hyperlipidemia Hypertension Anxiety Surgical History Surgical History History of inguinal hernia repair History of elbow surgery History of tonsillectomy and adenoidectomy History of hand surgery Right pinky finger 2010 Left ring finger 1963 per patient questionnaire History of facial surgery injury to face with multiple sutures Family History Family History Unknown Unknown family medical history patient was adopted Social History Social History Social History: Surrogate medical decision maker: Genie Anton, spouse. Code status: Full code. Smoking packs per day: 1.5 Smoking cigarettes per day: 30.0 Years smoked: 13 Smoking pack-years: 19.50 Smoking status: Former smoker Tobacco type: cigarettes Second hand tobacco smoke exposure: Yes Smoking end date: 03/25/85 Additional smoking assessment comments: Quit Smoking 1985. Alcohol intake: former Substance use: never Substance use type: does not use Do You Feel Safe in your Home?: Yes Lack of Transportation: No Lack of Food: Never True Current Housing: I Have Housing Concerned About Future Housing: No Difficulty Paying Gas/Electric Bills: No Difficulty Paying for Meds: YES Currently Unemployed: No Education: High School Diploma/GED Difficulty w/ Childcare or Family Care: No Living arrangements: with family Additional living arrangements comments: Lives with spouse in [place]. He has 3 children. Occupation/Education: retired Additional occupation/education comments: [employer] Gender identity (if verbalized by the patient): Male Spiritual care concerns: No Agree to blood products: Yes Comments At time of signature, I have reviewed and agree with nursing past medical, surgical, social and family history unless otherwise noted. Please see nursing chart for further information. There is no relevant family history pertinent to the presenting complaint Exam Narrative: GENERAL: Well-appearing, well-nourished, and in no acute distress. HEAD: Normocephalic, atraumatic. EYES: EOMI. No redness or drainage. Conjunctivae normal. ENT: Mucous membranes pink and moist. NECK: Normal AROM. CHEST: No respiratory distress. EXTREMITIES: Normal range of motion. No edema. SKIN: Warm, dry. Capillary refill normal. Normal skin turgor. Widespread mildly erythematous papular rash to most of the volar surface of the bilateral forearms. Reported small patch to the left knee and moderate patch to the right thigh. No vesicles or open wounds noted. NEURO: No focal deficits. Alert and oriented x3. Gait steady. PSYCH: Normal affect. No signs of depression or anxiety. Course Course Level of Care: Express Care Visit Vital Signs Vital signs: Vital Signs Temperature 97.2 F L 02/12/25 12:30 Pulse Rate 50 L 02/12/25 12:30 Respiratory Rate 18 02/12/25 12:30 Blood Pressure 132/68 02/12/25 12:30 Pulse Oximetry 98 02/12/25 12:30 Oxygen Delivery Room Air 02/12/25 12:30 Temperature 97.2 F L 02/12/25 12:30 Pulse Rate 50 L 02/12/25 12:30 Respiratory Rate 18 02/12/25 12:30 Blood Pressure 132/68 02/12/25 12:30 Pulse Oximetry 98 02/12/25 12:30 Oxygen Delivery Room Air 02/12/25 12:30 Reviewed MDM - Skin/Abscess/Foreign Bdy MDM Narrative Medical decision making narrative: 69-year-old male patient presents today complaining severely pruritic rash to the bilateral forearms, small patch to the left knee and patch to the right thigh. Symptoms have been present for 3 days. Prior to this patient was trimming branches at his home a few days prior to the rash beginning. States he did not have contact with any poison ryan etc.. He initially cleaned rash with alcohol and has been applying some [id number] ointment in anti-itch cream with some short-term relief. Patient is supposed to dress up in long sleeves tonight and tomorrow and is concerned because the arms are itching so bad. Upon exam, Widespread mildly erythematous papular rash to most of the volar surface of the bilateral forearms. Reported small patch to the left knee and moderate patch to the right thigh. No vesicles or open wounds noted. Discussed with patient the options for steroid treatment. States he no longer takes any medication for his diabetes after losing weight. He is concerned to start oral prednisone this evening that this may keep him awake. Through shared decision making, we decided to start a topical steroid today since rash is quite localized without open wounds or vesicles and he can start the oral medication tomorrow morning. Will not recommend antihistamine for itching due to age and risk for urinary retention and increased sedation. Patient agrees with this plan. VSS. Anticipatory guidance given. Differential Diagnosis Differential diagnosis: Likely viral exanthem, dermatophytosis, urticaria, cellulitis, eczema, impetigo and contact dermatitis Critical Care Time Critical Care Time Critical Care Time: No Discharge Plan Discharge Clinical Impression: Contact dermatitis Qualifiers: Contact dermatitis type: unspecified Contact dermatitis trigger: unspecified trigger Qualified Code(s): L25.9 - Unspecified contact dermatitis, unspecified cause Patient Disposition: Home Condition: Stable Instructions: Contact Dermatitis (DC) Additional Instructions: Please start the prednisone tomorrow morning and take as directed. You may also use the triamcinolone cream as prescribed on the localized areas. Follow-up with your PCP next week if symptoms are not improving. Patient Language: Romanian Prescriptions: New prednisone 20 mg tablet 40 mg PO DAILY 5 Days Qty: 10 0RF triamcinolone acetonide 0.1 % cream 1 applic topical BID Qty: 30 0RF No Action cholecalciferol (vitamin D3) 25 mcg (1,000 unit) capsule 25 mcg PO HS apple cider vinegar 600 mg capsule 600 mg PO HS multivitamin Tablet 1 tablet PO HS cyanocobalamin (vitamin B-12) [Vitamin B-12] 1,000 mcg Tablet Extended Release 1,000 mcg PO HS ascorbic acid (vitamin C) 1,000 mg Tablet 1 g PO HS pyridoxine (vitamin B6) [Vitamin B-6] 100 mg Tablet 100 mg PO HS vitamin B complex Capsule 2 cap PO HS Co Q-10 300 mg Capsule 300 mg PO HS tadalafil 5 mg tablet 5 mg PO DAILY Qty: 90 2RF omeprazole 20 mg capsule,delayed release(DR/EC) See Rx Instructions .ROUTE .COMPLEX Qty: 90 3RF Dose Instruction: TAKE 1 CAPSULE BY MOUTH EVERY DAY Rx Instructions: TAKE 1 CAPSULE BY MOUTH EVERY DAY tamsulosin 0.4 mg capsule 0.8 mg PO HS Qty: 180 3RF (DME) Contour Next Test Strips Strip See Rx Instructions .Route Qty: 100 5RF Rx Instructions: two times daily (DME) blood-glucose meter [Contour Next Glucose Meter] Kit See Rx Instructions .Route Qty: 1 0RF Rx Instructions: two times daily diazepam 5 mg tablet See Rx Instructions PO QHS PRN (Reason: leg cramps) Qty: 140 1RF Rx Instructions: Take 1 or 2 orally every day at bedtime PRN; pioglitazone 15 mg tablet 15 mg PO DAILY Qty: 90 2RF escitalopram oxalate 20 mg tablet 20 mg PO DAILY Qty: 90 2RF simvastatin 40 mg tablet 40 mg PO HS Qty: 90 2RF trazodone 100 mg tablet 100 mg PO QHS PRN (Reason: sleep) Qty: 90 2RF finasteride 5 mg tablet See Rx Instructions .ROUTE .COMPLEX Qty: 90 2RF Dose Instruction: TAKE 1 TABLET BY MOUTH EVERY DAY Rx Instructions: TAKE 1 TABLET BY MOUTH EVERY DAY Follow-up/Referrals: Howard Marlow MD [Primary Care Provider, Family Practice] Time of Disposition: 13:04
== END 2025-02-12 13:08 | disposition home or self-care (01) ==
PROVIDERS: Emergency Provider Nurse Practitioner; PCP Family Medicine Adolescent Medicine
DX: L25.9 Unspecified contact dermatitis, unspecified cause (principal); N40.0 Benign prostatic hyperplasia without lower urinary tract symptoms; E11.9 Type 2 diabetes mellitus without complications; Z79.4 Long term (current) use of insulin; I10 Essential (primary) hypertension; E78.5 Hyperlipidemia, unspecified; E66.9 Obesity, unspecified; Z68.28 Body mass index [BMI] 28.0-28.9, adult; F41.9 Anxiety disorder, unspecified; Z86.16 Personal history of COVID-19; Z86.73 Personal history of transient ischemic attack (TIA), and cerebral infarction without residual deficits; Z87.891 Personal history of nicotine dependence
CPT/HCPCS: 99213; G0463